=== PATIENT | male | born 1940 | race Caucasian/White ===

== ENCOUNTER → 2017-09-08 07:56 | Outpatient (CLI) | payer MEDICARE, OTHER, SELFPAY ==
[2017-09-08 09:57] LABS: Alanine Aminotransferase 27 IU/L (21-72); Albumin 3.9 g/dL (3.5-5.0); Albumin Globulin Ratio 1.6 (1.0-2.8); Alkaline Phosphatase 104 U/L (38-126); Aspartate Aminotransferase 16 IU/L (17-59); Bilirubin Total 0.8 mg/dL (0.2-1.3); Blood Urea Nitrogen 24 mg/dL (9-20); Calcium 9.9 mg/dL (8.4-10.2); Carbon Dioxide 27 mmol/L (22-32); Chloride 100 mmol/L (98-107); Estimated Glomerular Filt Rate 58.9 mL/min (>60); Globulin 2.5 g/dL (1.7-4.1); Glucose 150 mg/dL (80-110); HEMOLYSIS < 15 (0-50); Potassium 4.2 mmol/L (3.4-5.1); Sodium 140 mmol/L (137-145); Total Protein 6.4 g/dL (6.3-8.2)
== END ==
PROVIDERS: PCP Family Medicine; Referring Provider Nurse Practitioner; Visit Provider Internal Medicine
DX: E11.22 Type 2 diabetes mellitus with diabetic chronic kidney disease (principal); N18.3 Chronic kidney disease, stage 3 (moderate); Z79.4 Long term (current) use of insulin
CPT/HCPCS: 36415; 80053

== ENCOUNTER 2017-09-23 12:32 | Emergency (ER) | payer MEDICARE, OTHER, SELFPAY ==
--- NOTE | 2017-09-23 12:39 | ED.SOB ---
HPI - SOB/Dyspnea General Chief Complaint: Shortness of Breath/Dyspnea Stated Complaint: HAVING TROUBLE GETTING AIR IN Time Seen by Provider: 09/23/17 12:39 Source: patient Mode of arrival: ambulatory Limitations: no limitations History of Present Illness Patient is a 77-year-old male here for evaluation approximately 1 month of worsening shortness of breath. He states that the shortness of breath is occasional. He states that he can climb the stairs in his house without having to stop. He states that he can walk out to his mailbox without stopping. He states that he occasionally has wheezing associated with it denies any chest pain although he does have a significant cardiac history. Also states he has paroxysmal atrial fibrillation. He states that last night he had to sleep sitting in chair because it was ?more comfortable ?no lower extremity swelling Related Data Home Medications Medication Instructions Recorded Confirmed aspirin 81 mg PO QDAY #0 09/23/11 09/23/17 glipizide 4 mg PO DAILY #0 09/23/11 09/23/17 metoprolol tartrate 50 mg PO BID #0 09/23/11 09/23/17 atorvastatin [Lipitor] 80 mg PO QDAY #0 09/24/11 09/23/17 amlodipine 10 mg PO DAILY 09/23/17 09/23/17 chlorthalidone 25 mg PO DAILY 09/23/17 09/23/17 insulin glargine [Lantus Solostar 35 units SUB-Q DAILY 09/23/17 09/23/17 U-100 Insulin] irbesartan 300 mg PO DAILY 09/23/17 09/23/17 liraglutide [Victoza 2-Eddy] 1.8 mg SUB-Q BEDTIME 09/23/17 09/23/17 metformin 1,000 mg PO BID 09/23/17 09/23/17 Previous Rx's Medication Instructions Recorded albuterol sulfate 1 puff INHALATION Q4-6H PRN #1 each 09/23/17 furosemide 20 mg PO DAILY #30 tab 09/23/17 Allergies Allergy/AdvReac Type Severity Reaction Status Date / Time lisinopril AdvReac Mild COUGH Verified 09/23/17 12:49 Review of Systems Constitutional Denies fever(s) Cardiovascular Denies chest pain, Denies irregular heart rhythm, Denies leg ulcers, Denies leg edema, Denies palpitations, Reports dyspnea and Denies slow heart rate Respiratory Denies cough, Reports dyspnea and Reports wheezing Gastrointestinal Gastrointestinal: Denies abdominal pain, Denies diarrhea, Denies nausea and Denies vomiting Genitourinary Denies dysuria Musculoskeletal Denies myalgias and Denies arthralgias Integumentary/Breasts Denies rash Comments: Dry skin Neurologic Denies behavioral changes Psychiatric Denies behavioral changes Endocrine Denies palpitations Hematologic/Lymphatic Denies easy bleeding and Denies easy bruising Allergic/Immunologic Reports wheezing [facility] Medical History Atrial fibrillation (Acute) Diabetes (Acute) Myocardial infarct (Acute) Social History Smoking Status: Former smoker Comment: Reviewed patient's past medical surgical family and social history Exam Initial Vital Signs Initial Vital Signs: Vital Signs Temperature 97.6 F 09/23/17 12:43 Pulse Rate 80 09/23/17 12:43 Respiratory Rate 14 09/23/17 12:43 Blood Pressure 138/74 H 09/23/17 12:43 Pulse Oximetry 95 09/23/17 12:43 Const General: cooperative, healthy appearing, comfortable, well developed, well groomed and No acute distress Orientation: alert, awake and oriented x3 HENMT Head: normal to inspection, normocephalic and atraumatic Chest Chest: normal inspection of the chest Resp Effort & Inspection: normal respiratory effort Auscultation: clear to auscultation bilaterally Cardio Rate: regular rate Rhythm: abnormal rhythm irregularly irregular Pulses: radial pulses present GI Inspection: non-distended Palpation: soft, No firm and No tender Other: Umbilical hernia Diastasis recti Skin Other: No lesions, dry skin, Neuro General: alert, awake and oriented x3 Cognition: normal cognition Speech: speech normal Gait: normal gait Extrem General: normal to inspection and capillary refill normal Psych Appearance: grossly normal and well kempt Course Orders Ordered: ED Orders 09/23/17 12:42 EKG-12 Lead Routine 09/23/17 13:01 XR chest 1V Stat 09/23/17 13:09 B Type Natriuretic Peptide Stat Basic Metabolic Panel Stat Complete Blood Count AUTO DIFF Stat Troponin I Stat Vital Signs - 8 hr 09/23/17 12:43 09/23/17 13:00 09/23/17 13:39 Temperature 97.6 F Pulse Rate 80 66 83 Respiratory Rate 14 14 22 Blood Pressure 138/74 H Blood Pressure [Right Arm] 120/62 128/68 H Pulse Oximetry 95 93 95 MDM - SOB/Dyspnea Lab Data Attestation: I reviewed the patient's lab results. Result diagrams: 09/23/17 13:09 09/23/17 13:09 Lab Results 09/23/17 09/23/17 Range/Units 13:09 13:09 WBC 8.4 (4.5-11.0) X10^3/uL RBC 3.52 L (4.5-5.9) X10^6/uL Hgb 10.9 L (13.5-17.5) g/dL Hct 32.4 L (41-53) % MCV 92.0 (80-100) fL MCH 31.0 (26-34) PG MCHC 33.7 (30-36) % RDW 13.7 (11.6-14.8) % Plt Count 265 (150-400) X10^3/uL Neut % (Auto) 72.8 (50-75) % Lymph % (Auto) 16.1 L (25-40) % [place] % (Auto) 9.0 (3-14) % Eos % (Auto) 1.2 L (2-4) % Baso % (Auto) 0.9 (0-2) % Neut # (Auto) 6100 H (5597-7645) /uL Sodium 137 (137-145) mmol/L Potassium 4.7 (3.4-5.1) mmol/L Chloride 99 (98-107) mmol/L Carbon Dioxide 28 (22-32) mmol/L BUN 20 (9-20) mg/dL Creatinine 1.20 (0.66-1.25) mg/dL Estimated GFR 58.9 L (>60) mL/min BUN/Creatinine Ratio 16.7 (6-22) Glucose 277 H (80-110) mg/dL Calcium 9.4 (8.4-10.2) mg/dL Troponin I < 0.012 (0.01-0.034) ng/mL B-Natriuretic Peptide 363.0 H (<100) Imaging Data Chest x-ray: Radiologist's impression: PROCEDURE: XR CHEST 1V INDICATIONS: SOB TECHNIQUE: One view of the chest was acquired. COMPARISON: [facility], CR, CHEST 1 VIEW, 09/23/2011, 22:45. [facility], CR, CHEST 1 VIEW, 06/14/2010, 16:13. [facility], RG, XR CXR 1 VIEW, 04/24/2002, 15:26. FINDINGS: Surgical changes and devices: Status post CABG procedure. Lungs and pleura: No pneumothorax. Trace bilateral pleural effusions. Cephalization of pulmonary vasculature and interstitial prominence concerning for pulmonary edema related to CHF. Mediastinum: Mediastinal contours appear normal. Heart size is normal. Bones and chest wall: No suspicious bony lesions. Overlying soft tissues appear unremarkable. IMPRESSION: Findings concerning for CHF. Dictated by: Jayashree Alcala MD, PhD on 09/23/2017 at 13:33 Approved by: Jayashree Alcala MD, PhD on 09/23/2017 at 13:34 ECG Data Attestation: I personally reviewed and interpreted this ECG as follows: Prior ECG tracings: available for review Interpretation: Comparison EKG dated 08/2011 Sinus rhythm with occasional PVCs left axis deviation nonspecific ST T wave changes EKG dated today Atrial fibrillation Ventricular rate is 75 Left axis deviation Normal QRS Nonspecific ST T wave changes MDM Narrative Medical decision making narrative: Patient not in respiratory distress. Has clear lung exam today. Is in atrial fibrillation on his EKG. Patient states that he has a diagnosis of paroxysmal atrial fibrillation. He states that his recovery room rn took him off all of his anticoagulation except for an aspirin. Patient does not feel the fibrillation. Patient is clinically not in heart failure however does have a slightly elevated BNP, his chest x-ray is concerning for this diagnosis and his worsening respiratory issues over the past month and especially his respiratory issues he had last evening supports this diagnosis will start the patient on a low dose of Lasix. Also give him an albuterol inhaler since he states that he has had bronchitis in the past and has a symptom of wheezing. He was instructed that he needed to contact his recovery room rn tomorrow to discuss the indications to get an echocardiogram and to also discuss the indications for anticoagulation. He was given a copy of his EKG and his lab reports here in the emergency department. He was given return precautions. His is at bedside for these discussions. They both expressed understanding and agreement Discharge Plan Departure Patient Disposition: Home, Self-Care Clinical Impression: Atrial fibrillation, CHF (congestive heart failure) Instructions: DI for Heart Failure, DI for Atrial Fibrillation Activity Restrictions/Additional Instructions: Recommend that you continue all of your medications as directed. Start the new medications that you were given today as directed. Call your recovery room rn tomorrow for a follow-up to discuss the indications for an echocardiogram and also to discuss the indications for anticoagulation. Return to the emergency department for any new symptoms, worsening shortness of breath, chest pain, fevers or any other new or concerning symptoms. Prescriptions: New furosemide 20 mg tablet 20 mg PO DAILY Qty: 30 RF: 0 albuterol sulfate 90 mcg/actuation aerosol powdr breath activated 1 puff INHALATION Q4-6H PRN (Reason: shortness of breath or wheezing) Qty: 1 RF: 0 No Action aspirin 81 MG tablet,delayed release (DR/EC) 81 mg PO QDAY Qty: 0 RF: 0 glipizide 10 MG tablet extended release 24hr 4 mg PO DAILY Qty: 0 RF: 0 metoprolol tartrate 50 MG tablet 50 mg PO BID Qty: 0 RF: 0 atorvastatin [Lipitor] 40 MG tablet 80 mg PO QDAY Qty: 0 RF: 0 chlorthalidone 25 mg tablet 25 mg PO DAILY RF: 0 amlodipine 10 mg tablet 10 mg PO DAILY RF: 0 metformin 1,000 mg Tablet 1,000 mg PO BID RF: 0 irbesartan 300 mg tablet 300 mg PO DAILY RF: 0 insulin glargine [Lantus Solostar U-100 Insulin] 100 unit/mL (3 mL) insulin pen 35 units Sub-Q DAILY RF: 0 liraglutide [Victoza 2-Eddy] 0.6 mg/0.1 mL (18 mg/3 mL) pen injector 1.8 mg Sub-Q BEDTIME RF: 0
[2017-09-23 12:43] VITALS: BP 138/74; PULSE 80; RESP 14; TEMP 36.4; O2SAT 95; BMI 31.4
[2017-09-23 13:00] VITALS: BP 120/62; PULSE 66; RESP 14; O2SAT 93
--- NOTE | 2017-09-23 13:01 | DI.RAD.S_ITS ---
PROCEDURE: XR CHEST 1V INDICATIONS: SOB TECHNIQUE: One view of the chest was acquired. COMPARISON: [facility], , CHEST 1 VIEW, 09/23/2011, 22:45. [facility], CR, CHEST 1 VIEW, 06/14/2010, 16:13. [facility], RG, XR CXR 1 VIEW, 04/24/2002, 15:26. FINDINGS: Surgical changes and devices: Status post CABG procedure. Lungs and pleura: No pneumothorax. Trace bilateral pleural effusions. Cephalization of pulmonary vasculature and interstitial prominence concerning for pulmonary edema related to CHF. Mediastinum: Mediastinal contours appear normal. Heart size is normal. Bones and chest wall: No suspicious bony lesions. Overlying soft tissues appear unremarkable. IMPRESSION: Findings concerning for CHF. Dictated by: Jayashree Alcala MD, PhD on 09/23/2017 at 13:33 Approved by: Jayashree Alcala MD, PhD on 09/23/2017 at 13:34
[2017-09-23 13:17] LABS: Add Manual Diff / Slide Review NO; Basophils Percent Auto 0.9 % (0-2); Eosinophils Percent Auto 1.2 % (2-4); Hematocrit 32.4 % (41-53); Hemoglobin 10.9 g/dL (13.5-17.5); Lymphocytes Percent Auto 16.1 % (25-40); Mean Corpuscular HGB Conc 33.7 % (30-36); Neutrophils Absolute Auto 6100 /uL (3000-5900); Neutrophils Percent Auto 72.8 % (50-75); Platelet Count 265 X10^3/uL (150-400); Red Blood Cell Count 3.52 X10^6/uL (4.5-5.9); Red Cell Distribution Width 13.7 % (11.6-14.8); White Blood Cell Count 8.4 X10^3/uL (4.5-11.0)
[2017-09-23 13:27] LABS: BUN Creatinine Ratio 16.7 (6-22); Blood Urea Nitrogen 20 mg/dL (9-20); Calcium 9.4 mg/dL (8.4-10.2); Carbon Dioxide 28 mmol/L (22-32); Chloride 99 mmol/L (98-107); Estimated Glomerular Filt Rate 58.9 mL/min (>60); Glucose 277 mg/dL (80-110); HEMOLYSIS < 15 (0-50); Potassium 4.7 mmol/L (3.4-5.1); Sodium 137 mmol/L (137-145)
[2017-09-23 13:39] VITALS: BP 128/68; PULSE 83; RESP 22; O2SAT 95
[2017-09-23 13:41] LABS: Troponin I < 0.012 ng/mL (0.01-0.034)
[2017-09-23 14:14] VITALS: BP 130/73; PULSE 71; RESP 17; O2SAT 94
== END 2017-09-23 14:14 | disposition home or self-care (01) ==
PROVIDERS: Emergency Provider Emergency Medicine; Family Provider Internal Medicine; PCP Family Medicine; Referring Provider Internal Medicine Endocrinology, Diabetes & Metabolism
DX: I50.9 Heart failure, unspecified (principal); I48.91 Unspecified atrial fibrillation
CPT/HCPCS: 36591; 71045; 80048; 83880; 84484; 85025; 93005; 99282; 99285

== ENCOUNTER → 2017-10-03 07:27 | Outpatient (CLI) | payer MEDICARE, OTHER, SELFPAY ==
[2017-10-03 10:09] LABS: Cholesterol 96 mg/dL (140-199); HDL Cholesterol 33 mg/dL (40-60); LDL Cholesterol Calculated 49 mg/dL (<100); Magnesium 1.8 mg/dL (1.6-2.3); Triglycerides 71 mg/dL (35-150)
== END ==
PROVIDERS: PCP Family Medicine; Referring Provider Internal Medicine Endocrinology, Diabetes & Metabolism; Visit Provider Internal Medicine
DX: I48.0 Paroxysmal atrial fibrillation (principal); E78.00 Pure hypercholesterolemia, unspecified
CPT/HCPCS: 36415; 80061; 83735

== ENCOUNTER → 2017-11-02 10:49 | Outpatient (CLI) | payer MEDICARE, OTHER, SELFPAY ==
[2017-11-02 12:31] LABS: BUN Creatinine Ratio 21.3 (6-22); Blood Urea Nitrogen 34 mg/dL (9-20); Calcium 9.9 mg/dL (8.4-10.2); Carbon Dioxide 30 mmol/L (22-32); Chloride 102 mmol/L (98-107); Estimated Glomerular Filt Rate 42.2 mL/min (>60); Glucose 83 mg/dL (80-110); HEMOLYSIS < 15 (0-50); Magnesium 1.8 mg/dL (1.6-2.3); Sodium 143 mmol/L (137-145)
== END ==
PROVIDERS: PCP Family Medicine; Visit Provider Internal Medicine
DX: I48.0 Paroxysmal atrial fibrillation (principal)
CPT/HCPCS: 36415; 80048; 83735

== ENCOUNTER → 2017-11-27 10:57 | Outpatient (CLI) | payer MEDICARE, OTHER, SELFPAY ==
[2017-11-27 12:21] LABS: BUN Creatinine Ratio 26.7 (6-22); Blood Urea Nitrogen 40 mg/dL (9-20); Calcium 9.9 mg/dL (8.4-10.2); Carbon Dioxide 28 mmol/L (22-32); Chloride 100 mmol/L (98-107); Estimated Glomerular Filt Rate 45.5 mL/min (>60); Glucose 179 mg/dL (80-110); HEMOLYSIS < 15 (0-50); Magnesium 1.9 mg/dL (1.6-2.3); Potassium 5.3 mmol/L (3.4-5.1); Sodium 141 mmol/L (137-145)
== END ==
PROVIDERS: Family Provider Internal Medicine; PCP Family Medicine; Visit Provider Internal Medicine
DX: E83.42 Hypomagnesemia (principal); I48.91 Unspecified atrial fibrillation
CPT/HCPCS: 36415; 80048; 83735

== ENCOUNTER → 2017-12-10 13:51 | Outpatient (CLI) | payer MEDICARE, OTHER, SELFPAY ==
[2017-12-10 15:24] LABS: Add Manual Diff / Slide Review NO; Basophils Percent Auto 0.7 % (0-2); Eosinophils Percent Auto 1.2 % (2-4); Hemoglobin 11.8 g/dL (13.5-17.5); Lymphocytes Percent Auto 11.6 % (25-40); Mean Corpuscular HGB Conc 33.6 % (30-36); Mean Corpuscular Hemoglobin 30.1 PG (26-34); Mean Corpuscular Volume 89.4 fL (80-100); Monocytes Percent Auto 11.2 % (3-14); Neutrophils Absolute Auto 6000 /uL (3000-5900); Neutrophils Percent Auto 75.3 % (50-75); Platelet Count 259 X10^3/uL (150-400); Red Blood Cell Count 3.91 X10^6/uL (4.5-5.9); Red Cell Distribution Width 15.3 % (11.6-14.8)
[2017-12-10 15:25] LABS: Alanine Aminotransferase 47 IU/L (21-72); Albumin 4.2 g/dL (3.5-5.0); Albumin Globulin Ratio 1.5 (1.0-2.8); Alkaline Phosphatase 173 U/L (38-126); Aspartate Aminotransferase 36 IU/L (17-59); BUN Creatinine Ratio 21.3 (6-22); Bilirubin Total 0.7 mg/dL (0.2-1.3); Blood Urea Nitrogen 34 mg/dL (9-20); Calcium 9.6 mg/dL (8.4-10.2); Carbon Dioxide 28 mmol/L (22-32); Chloride 97 mmol/L (98-107); Estimated Glomerular Filt Rate 42.2 mL/min (>60); Globulin 2.8 g/dL (1.7-4.1); Glucose 321 mg/dL (80-110); HEMOLYSIS < 15 (0-50); Potassium 4.6 mmol/L (3.4-5.1); Sodium 137 mmol/L (137-145)
[2017-12-10 15:47] LABS: Free T4, Direct Thyroxine 1.25 ng/dL (0.78-2.19)
[2017-12-10 15:49] LABS: Troponin I < 0.012 ng/mL (0.01-0.034)
[2017-12-10 16:38] LABS: Thyroid Stimulating Hormone 2.16 uIU/mL (0.47-4.68)
== END ==
PROVIDERS: Family Provider Internal Medicine; PCP Family Medicine; Visit Provider Internal Medicine
DX: I48.0 Paroxysmal atrial fibrillation (principal)
CPT/HCPCS: 36415; 80053; 84439; 84443; 84484; 85025

== ENCOUNTER → 2017-12-21 10:51 | Outpatient (CLI) | payer MEDICARE, OTHER, SELFPAY ==
[2017-12-21 12:36] LABS: Alanine Aminotransferase 31 IU/L (21-72); Albumin Globulin Ratio 1.7 (1.0-2.8); Alkaline Phosphatase 112 U/L (38-126); Aspartate Aminotransferase 20 IU/L (17-59); BUN Creatinine Ratio 21.9 (6-22); Bilirubin Total 0.6 mg/dL (0.2-1.3); Blood Urea Nitrogen 35 mg/dL (9-20); Calcium 10.1 mg/dL (8.4-10.2); Carbon Dioxide 26 mmol/L (22-32); Chloride 97 mmol/L (98-107); Estimated Glomerular Filt Rate 42.2 mL/min (>60); Globulin 2.4 g/dL (1.7-4.1); Glucose 246 mg/dL (80-110); HEMOLYSIS < 15 (0-50); Sodium 136 mmol/L (137-145); Total Protein 6.4 g/dL (6.3-8.2)
[2017-12-21 12:47] LABS: Potassium 5.8 mmol/L (3.4-5.1)
== END ==
PROVIDERS: Family Provider Internal Medicine; PCP Family Medicine; Visit Provider Nurse Practitioner
DX: E11.22 Type 2 diabetes mellitus with diabetic chronic kidney disease (principal); E78.00 Pure hypercholesterolemia, unspecified; N18.3 Chronic kidney disease, stage 3 (moderate); Z79.4 Long term (current) use of insulin
CPT/HCPCS: 36415; 80053

== ENCOUNTER → 2017-12-28 11:36 | Outpatient (CLI) | payer MEDICARE, OTHER, SELFPAY ==
[2017-12-28 12:31] LABS: Blood Urea Nitrogen 40 mg/dL (9-20); Calcium 9.4 mg/dL (8.4-10.2); Carbon Dioxide 27 mmol/L (22-32); Chloride 99 mmol/L (98-107); Estimated Glomerular Filt Rate 42.2 mL/min (>60); Glucose 133 mg/dL (80-110); Sodium 142 mmol/L (137-145)
[2017-12-28 12:35] LABS: HEMOLYSIS 96 (0-50); Potassium 5.2 mmol/L (3.4-5.1)
== END ==
PROVIDERS: Family Provider Internal Medicine; PCP Family Medicine; Visit Provider Internal Medicine
DX: I48.2 Chronic atrial fibrillation (principal)
CPT/HCPCS: 36415; 80048

== ENCOUNTER → 2018-01-22 10:29 | Outpatient (CLI) | payer MEDICARE, OTHER, SELFPAY ==
[2018-01-22 11:01] LABS: Bacteria Urine None Seen
[2018-01-22 12:21] LABS: Appearance Urine UA CLEAR; Bilirubin Urine UA NEGATIVE (NEGATIVE); Color Urine UA YELLOW; Glucose Urine UA NEGATIVE (Normal); Ketones Urine UA NEGATIVE (NEGATIVE); Leukocyte Esterase Urine UA NEGATIVE (NEGATIVE); Nitrite Urine UA NEGATIVE (Negative); Occult Blood Urine UA NEGATIVE (Negative); Protein Urine UA NEGATIVE (Negative); Urobilinogen Urine UA 0.2 E.U./dL (0.2)
[2018-01-22 12:44] LABS: Albumin 3.8 g/dL (3.5-5.0); BUN Creatinine Ratio 16.4 (6-22); Blood Urea Nitrogen 23 mg/dL (9-20); Calcium 9.1 mg/dL (8.4-10.2); Carbon Dioxide 26 mmol/L (22-32); Chloride 101 mmol/L (98-107); Estimated Glomerular Filt Rate 49.3 mL/min (>60); Glucose 165 mg/dL (80-110); HEMOLYSIS < 15 (0-50); Phosphorous 4.9 mg/dL (2.3-3.7); Potassium 4.4 mmol/L (3.4-5.1); Sodium 140 mmol/L (137-145)
[2018-01-22 13:09] LABS: Culture Indicated Urine Cult Not Indicated; Hyaline Casts Urine 1-5/LPF; RBC Urine 0-1/HPF (0-5/HPF); Squamous Epithelial Cell Urine 0-1 /HPF; Urine Comments Microscopic Normal; WBC Urine 0-1/HPF (0-5/HPF)
[2018-01-22 14:05] LABS: Creatinine Urine Random 76.4 mg/dL
[2018-01-22 14:10] LABS: Microalbumi Creatinin Ratio Ur 200.2 ug/mg CR (<30); Microalbumin Urine Random 15.3 mg/dL (0-1.6)
== END ==
PROVIDERS: Family Provider Internal Medicine; PCP Family Medicine; Referring Provider Nurse Practitioner; Visit Provider Internal Medicine Nephrology
DX: N18.3 Chronic kidney disease, stage 3 (moderate) (principal)
CPT/HCPCS: 36415; 80069; 81001; 82043; 82570

== ENCOUNTER → 2018-08-09 07:48 | Outpatient (CLI) | payer MEDICARE, OTHER, SELFPAY ==
[2018-08-09 08:37] LABS: Add Manual Diff / Slide Review NO; Basophils Absolute Auto 100 /uL (0-100); Basophils Percent Auto 1.4 % (0-2); Eosinophils Absolute Auto 700 /uL (0-450); Eosinophils Percent Auto 10.3 % (2-4); Hematocrit 36.1 % (41-53); Hemoglobin 12.2 g/dL (13.5-17.5); Lymphocytes Absolute Auto 600 /uL (1100-4500); Lymphocytes Percent Auto 8.8 % (25-40); Mean Corpuscular HGB Conc 33.9 % (30-36); Mean Corpuscular Hemoglobin 30.6 PG (26-34); Mean Corpuscular Volume 90.4 fL (80-100); Monocytes Absolute Auto 1100 /uL (0-900); Monocytes Percent Auto 14.6 % (3-14); Neutrophils Absolute Auto 4700 /uL (1500-7000); Neutrophils Percent Auto 64.9 % (50-75); Platelet Count 246 X10^3/uL (150-400); Red Blood Cell Count 3.99 X10^6/uL (4.5-5.9); Red Cell Distribution Width 16.2 % (11.6-14.8); White Blood Cell Count 7.2 X10^3/uL (4.5-11.0)
[2018-08-09 08:51] LABS: BUN Creatinine Ratio 18.8 (6-22); Blood Urea Nitrogen 30 mg/dL (9-20); Calcium 9.7 mg/dL (8.4-10.2); Carbon Dioxide 27 mmol/L (22-32); Chloride 102 mmol/L (98-107); Estimated Glomerular Filt Rate 42.1 mL/min (>60); Glucose 73 mg/dL (80-110); HEMOLYSIS < 15 (0-50); Potassium 4.1 mmol/L (3.4-5.1); Sodium 137 mmol/L (137-145)
[2018-08-09 09:57] LABS: Thyroid Stimulating Hormone 7.75 uIU/mL (0.47-4.68)
== END ==
PROVIDERS: PCP Family Medicine; Visit Provider Internal Medicine
DX: I48.91 Unspecified atrial fibrillation (principal)
CPT/HCPCS: 36415; 80048; 84439; 84443; 85025

== ENCOUNTER → 2018-09-17 17:17 | Outpatient (CLI) | payer MEDICARE, OTHER, SELFPAY ==
[2018-09-17 17:41] LABS: Add Manual Diff / Slide Review NO; Basophils Absolute Auto 100 /uL (0-100); Basophils Percent Auto 1.1 % (0-2); Eosinophils Absolute Auto 200 /uL (0-450); Eosinophils Percent Auto 2.2 % (2-4); Hematocrit 40.4 % (41-53); Hemoglobin 13.3 g/dL (13.5-17.5); Lymphocytes Absolute Auto 1100 /uL (1100-4500); Lymphocytes Percent Auto 15.1 % (25-40); Mean Corpuscular Hemoglobin 30.3 PG (26-34); Mean Corpuscular Volume 91.9 fL (80-100); Monocytes Absolute Auto 900 /uL (0-900); Monocytes Percent Auto 13.4 % (3-14); Neutrophils Absolute Auto 4800 /uL (1500-7000); Neutrophils Percent Auto 68.2 % (50-75); Platelet Count 228 X10^3/uL (150-400); Red Cell Distribution Width 17.3 % (11.6-14.8)
[2018-09-17 18:16] LABS: Albumin 4.2 g/dL (3.5-5.0); BUN Creatinine Ratio 23.2 (6-22); Blood Urea Nitrogen 44 mg/dL (9-20); Calcium 9.7 mg/dL (8.4-10.2); Carbon Dioxide 26 mmol/L (22-32); Chloride 98 mmol/L (98-107); Estimated Glomerular Filt Rate 34.5 mL/min (>60); Glucose 296 mg/dL (80-110); HEMOLYSIS 19 (0-50); Phosphorous 4.7 mg/dL (2.3-3.7); Potassium 5.2 mmol/L (3.4-5.1); Sodium 136 mmol/L (137-145)
[2018-09-19 13:43] LABS: Parathyroid Hormone Int 81 pg/mL (14-64)
== END ==
PROVIDERS: PCP Family Medicine; Visit Provider Internal Medicine Nephrology
DX: N18.3 Chronic kidney disease, stage 3 (moderate) (principal)
CPT/HCPCS: 36415; 80069; 83970; 85025

== ENCOUNTER → 2018-10-18 10:56 | Outpatient (CLI) | payer MEDICARE, OTHER, SELFPAY ==
[2018-10-18 12:50] LABS: BUN Creatinine Ratio 23.8 (6-22); Blood Urea Nitrogen 38 mg/dL (9-20); Calcium 9.5 mg/dL (8.4-10.2); Carbon Dioxide 24 mmol/L (22-32); Chloride 101 mmol/L (98-107); Estimated Glomerular Filt Rate 42.1 mL/min (>60); Glucose 222 mg/dL (80-110); HEMOLYSIS < 15 (0-50); Sodium 135 mmol/L (137-145)
[2018-10-18 12:53] LABS: Potassium 5.4 mmol/L (3.4-5.1)
== END ==
PROVIDERS: PCP Family Medicine; Visit Provider Internal Medicine Nephrology
DX: N18.3 Chronic kidney disease, stage 3 (moderate) (principal)
CPT/HCPCS: 36415; 80048

== ENCOUNTER → 2018-12-31 11:08 | Outpatient (CLI) | payer MEDICARE, OTHER, SELFPAY ==
--- NOTE | 2018-12-31 | DI.RAD.S_ITS ---
PROCEDURE: XR CHEST 2V INDICATIONS: Chronic Kidney Disease Stage III TECHNIQUE: 2 views of the chest were acquired. COMPARISON: [facility], CR, XR CHEST 1V, 09/23/2017, 13:08. FINDINGS: Surgical changes and devices: Post median sternotomy and CABG. Lungs and pleura: Lungs are clear. No pleural effusions or pneumothorax. Mediastinum: Mediastinal contours are unchanged. Small hiatal hernia. Calcified aortic arch. Heart size is normal. Bones and chest wall: No suspicious bony abnormalities. Soft tissues appear unremarkable. IMPRESSION: No acute cardiopulmonary abnormality. Dictated by: [place] M.D. on 12/31/2018 at 12:49 Approved by: [place] M.D. on 12/31/2018 at 13:01
[2018-12-31 12:10] LABS: Add Manual Diff / Slide Review NO; Basophils Absolute Auto 100 /uL (0-100); Basophils Percent Auto 1.1 % (0-2); Eosinophils Absolute Auto 200 /uL (0-450); Eosinophils Percent Auto 2.9 % (2-4); Hematocrit 41.1 % (41-53); Hemoglobin 13.8 g/dL (13.5-17.5); Lymphocytes Absolute Auto 900 /uL (1100-4500); Lymphocytes Percent Auto 12.9 % (25-40); Mean Corpuscular HGB Conc 33.6 % (30-36); Mean Corpuscular Volume 98.1 fL (80-100); Monocytes Absolute Auto 900 /uL (0-900); Monocytes Percent Auto 12.9 % (3-14); Neutrophils Absolute Auto 4800 /uL (1500-7000); Neutrophils Percent Auto 70.2 % (50-75); Platelet Count 189 X10^3/uL (150-400); Red Cell Distribution Width 14.2 % (11.6-14.8); White Blood Cell Count 6.9 X10^3/uL (4.5-11.0)
[2018-12-31 12:43] LABS: Albumin 3.7 g/dL (3.5-5.0); BUN Creatinine Ratio 21.1 (6-22); Blood Urea Nitrogen 38 mg/dL (9-20); Calcium 9.5 mg/dL (8.4-10.2); Carbon Dioxide 27 mmol/L (22-32); Chloride 100 mmol/L (98-107); Estimated Glomerular Filt Rate 36.8 mL/min (>60); Glucose 151 mg/dL (80-110); HEMOLYSIS < 15 (0-50); Phosphorous 4.7 mg/dL (2.3-3.7); Potassium 5.3 mmol/L (3.4-5.1); Sodium 136 mmol/L (137-145)
[2019-01-02 15:13] LABS: Parathyroid Hormone Int 37 pg/mL (14-64)
== END ==
PROVIDERS: PCP Family Medicine; Visit Provider Internal Medicine Nephrology
DX: N18.3 Chronic kidney disease, stage 3 (moderate) (principal); K44.9 Diaphragmatic hernia without obstruction or gangrene; Z95.1 Presence of aortocoronary bypass graft
CPT/HCPCS: 36415; 71046; 80069; 83970; 85025

== ENCOUNTER → 2019-01-21 10:49 | Outpatient (CLI) | payer MEDICARE, OTHER, SELFPAY ==
[2019-01-21 12:36] LABS: BUN Creatinine Ratio 22.1 (6-22); Blood Urea Nitrogen 42 mg/dL (9-20); Calcium 9.3 mg/dL (8.4-10.2); Carbon Dioxide 28 mmol/L (22-32); Chloride 101 mmol/L (98-107); Estimated Glomerular Filt Rate 34.5 mL/min (>60); Glucose 265 mg/dL (80-110); HEMOLYSIS < 15 (0-50); Potassium 4.9 mmol/L (3.4-5.1); Sodium 137 mmol/L (137-145)
== END ==
PROVIDERS: PCP Family Medicine; Visit Provider Internal Medicine
DX: N18.3 Chronic kidney disease, stage 3 (moderate) (principal)
CPT/HCPCS: 36415; 80048

== ENCOUNTER → 2019-02-04 11:12 | Outpatient (CLI) | payer MEDICARE, OTHER, SELFPAY ==
[2019-02-04 12:32] LABS: BUN Creatinine Ratio 20.5 (6-22); Blood Urea Nitrogen 39 mg/dL (9-20); Calcium 9.5 mg/dL (8.4-10.2); Carbon Dioxide 29 mmol/L (22-32); Chloride 101 mmol/L (98-107); Estimated Glomerular Filt Rate 34.5 mL/min (>60); Glucose 149 mg/dL (80-110); HEMOLYSIS < 15 (0-50); Potassium 5.2 mmol/L (3.4-5.1); Sodium 138 mmol/L (137-145)
== END ==
PROVIDERS: Family Provider Family Medicine; PCP Family Medicine; Referring Provider Internal Medicine Endocrinology, Diabetes & Metabolism; Visit Provider Internal Medicine
DX: I13.10 Hypertensive heart and chronic kidney disease without heart failure, with stage 1 through stage 4 chronic kidney disease, or unspecified chronic kidney disease (principal)
CPT/HCPCS: 36415; 80048

== ENCOUNTER → 2019-03-21 11:22 | Outpatient (CLI) | payer MEDICARE, OTHER, SELFPAY ==
[2019-03-21 11:49] LABS: Add Manual Diff / Slide Review NO; Basophils Absolute Auto 100 /uL (0-100); Basophils Percent Auto 0.8 % (0-2); Eosinophils Absolute Auto 200 /uL (0-450); Eosinophils Percent Auto 2.8 % (2-4); Hematocrit 45.2 % (41-53); Hemoglobin 15.5 g/dL (13.5-17.5); Lymphocytes Absolute Auto 1000 /uL (1100-4500); Lymphocytes Percent Auto 12.4 % (25-40); Mean Corpuscular HGB Conc 34.2 % (30-36); Mean Corpuscular Volume 96.5 fL (80-100); Monocytes Absolute Auto 1100 /uL (0-900); Monocytes Percent Auto 13.7 % (3-14); Neutrophils Absolute Auto 5600 /uL (1500-7000); Neutrophils Percent Auto 70.3 % (50-75); Platelet Count 202 X10^3/uL (150-400); Red Blood Cell Count 4.68 X10^6/uL (4.5-5.9); White Blood Cell Count 7.9 X10^3/uL (4.5-11.0)
[2019-03-21 11:59] LABS: Albumin 4.2 g/dL (3.5-5.0); BUN Creatinine Ratio 18.9 (6-22); Blood Urea Nitrogen 34 mg/dL (9-20); Calcium 9.9 mg/dL (8.4-10.2); Carbon Dioxide 27 mmol/L (22-32); Chloride 100 mmol/L (98-107); Estimated Glomerular Filt Rate 36.8 mL/min (>60); Glucose 108 mg/dL (80-110); HEMOLYSIS 15 (0-50); Potassium 5.2 mmol/L (3.4-5.1); Sodium 137 mmol/L (137-145)
== END ==
PROVIDERS: PCP Family Medicine; Visit Provider Internal Medicine Nephrology
DX: N18.3 Chronic kidney disease, stage 3 (moderate) (principal)
CPT/HCPCS: 36415; 80069; 85025

== ENCOUNTER → 2019-03-25 10:50 | Outpatient (CLI) | payer MEDICARE, OTHER, SELFPAY ==
[2019-03-25 15:09] LABS: Creatinine Urine Random 95.5 mg/dL
[2019-03-25 15:16] LABS: Microalbumi Creatinin Ratio Ur 196.8 ug/mg CR (<30); Microalbumin Urine Random 18.8 mg/dL (0-1.6)
== END ==
PROVIDERS: Family Provider Family Medicine; PCP Family Medicine; Referring Provider Internal Medicine; Visit Provider Internal Medicine Nephrology
DX: N18.3 Chronic kidney disease, stage 3 (moderate) (principal)
CPT/HCPCS: 82043; 82570

== ENCOUNTER → 2019-05-16 13:16 | Outpatient (CLI) | payer MEDICARE, OTHER, SELFPAY ==
[2019-05-16 14:34] LABS: Alanine Aminotransferase 31 IU/L (<50); Albumin 4.2 g/dL (3.5-5.0); Albumin Globulin Ratio 1.4 (1.0-2.8); Alkaline Phosphatase 94 U/L (38-126); Aspartate Aminotransferase 34 IU/L (17-59); BUN Creatinine Ratio 20.4 (6-22); Bilirubin Total 0.6 mg/dL (0.2-1.3); Blood Urea Nitrogen 34 mg/dL (9-20); Calcium 9.6 mg/dL (8.4-10.2); Carbon Dioxide 27 mmol/L (22-32); Chloride 100 mmol/L (98-107); Estimated Glomerular Filt Rate 40.1 mL/min (>60); Globulin 3.1 g/dL (1.7-4.1); Glucose 339 mg/dL (80-110); HEMOLYSIS < 15 (0-50); Potassium 4.8 mmol/L (3.4-5.1); Sodium 135 mmol/L (137-145); Total Protein 7.3 g/dL (6.3-8.2)
[2019-05-16 15:05] LABS: Thyroid Stimulating Hormone 3.01 uIU/mL (0.47-4.68)
== END ==
PROVIDERS: Family Provider Family Medicine; PCP Family Medicine; Referring Provider Internal Medicine; Visit Provider Internal Medicine
DX: E03.8 Other specified hypothyroidism (principal); E78.5 Hyperlipidemia, unspecified; E03.9 Hypothyroidism, unspecified
CPT/HCPCS: 36415; 80053; 84439; 84443

== ENCOUNTER → 2019-08-06 09:10 | Outpatient (CLI) | payer MEDICARE, OTHER, SELFPAY ==
[2019-08-06 23:30] LABS: COVID19 Sendout Not Detected (Not Detect)
== END ==
PROVIDERS: Family Provider Family Medicine; PCP Family Medicine; Visit Provider Registered Nurse
DX: Z01.812 Encounter for preprocedural laboratory examination (principal)
CPT/HCPCS: 87635

== ENCOUNTER → 2019-09-09 08:01 | Outpatient (CLI) | payer MEDICARE, OTHER, SELFPAY ==
[2019-09-09 09:11] LABS: Albumin 3.8 g/dL (3.5-5.0); BUN Creatinine Ratio 18.8 (6-22); Blood Urea Nitrogen 35 mg/dL (9-20); Calcium 9.4 mg/dL (8.4-10.2); Carbon Dioxide 28 mmol/L (22-32); Chloride 105 mmol/L (98-107); Estimated Glomerular Filt Rate 35.3 mL/min (>60); Glucose 61 mg/dL (80-110); HEMOLYSIS < 15 (0-50); Phosphorous 4.3 mg/dL (2.3-3.7); Potassium 4.5 mmol/L (3.4-5.1); Sodium 139 mmol/L (137-145)
[2019-09-09 09:26] LABS: Vitamin D 25 Hydroxy (D3) 43.7 ng/mL (30.0-100.0)
[2019-09-10 06:40] LABS: Parathyroid Hormone Int 49 pg/mL (15-65)
== END ==
PROVIDERS: Family Provider Family Medicine; PCP Internal Medicine Nephrology; Referring Provider Internal Medicine Endocrinology, Diabetes & Metabolism; Visit Provider Internal Medicine Endocrinology, Diabetes & Metabolism
DX: N18.3 Chronic kidney disease, stage 3 (moderate) (principal)
CPT/HCPCS: 36415; 80069; 82306; 83970

== ENCOUNTER → 2019-10-29 08:32 | Outpatient (CLI) | payer MEDICARE, OTHER, SELFPAY ==
[2019-10-29 10:27] LABS: Albumin 3.7 g/dL (3.5-5.0); BUN Creatinine Ratio 21.1 (6-22); Blood Urea Nitrogen 39 mg/dL (9-20); Calcium 9.1 mg/dL (8.4-10.2); Carbon Dioxide 23 mmol/L (22-32); Chloride 104 mmol/L (98-107); Estimated Glomerular Filt Rate 35.5 mL/min (>60); Glucose 84 mg/dL (80-110); HEMOLYSIS < 15 (0-50); Potassium 4.6 mmol/L (3.4-5.1); Sodium 136 mmol/L (137-145)
[2019-10-30 07:18] LABS: Parathyroid Hormone Int 51 pg/mL (15-65)
[2019-10-30 11:58] LABS: Vitamin D 25 Hydroxy (D3) 34.9 ng/mL (30.0-100.0)
== END ==
PROVIDERS: Family Provider Family Medicine; Referring Provider Internal Medicine Nephrology; Visit Provider Internal Medicine Nephrology
DX: N18.3 Chronic kidney disease, stage 3 (moderate) (principal)
CPT/HCPCS: 36415; 80069; 82306; 83970

== ENCOUNTER → 2019-12-12 08:59 | Outpatient (CLI) | payer MEDICARE, OTHER, SELFPAY ==
[2019-12-12 09:15] LABS: Bacteria Urine None Seen; WBC Urine None Seen (0-5/HPF)
[2019-12-12 11:14] LABS: Appearance Urine UA CLEAR; Bilirubin Urine UA NEGATIVE (NEGATIVE); Color Urine UA YELLOW; Glucose Urine UA NEGATIVE (Negative); Ketones Urine UA NEGATIVE (NEGATIVE); Leukocyte Esterase Urine UA NEGATIVE (NEGATIVE); Nitrite Urine UA NEGATIVE (Negative); Occult Blood Urine UA TRACE-INTACT (Negative); Protein Urine UA 2+ (Negative); Specific Gravity Urine UA 1.025 (1.000-1.035); Urobilinogen Urine UA 0.2 E.U./dL (0.2)
[2019-12-12 11:37] LABS: Culture Indicated Urine Cult Not Indicated; RBC Urine 0-1/HPF (0-5/HPF)
== END ==
PROVIDERS: Family Provider Family Medicine; Referring Provider Internal Medicine Nephrology; Visit Provider Internal Medicine Nephrology
DX: N18.30 Chronic kidney disease, stage 3 unspecified (principal)
CPT/HCPCS: 81001

== ENCOUNTER → 2020-02-03 15:28 | Outpatient (CLI) | payer MEDICARE, OTHER, SELFPAY ==
[2020-02-03 18:40] LABS: Add Manual Diff / Slide Review NO; Basophils Absolute Auto 100 /uL (0-100); Eosinophils Absolute Auto 200 /uL (0-450); Eosinophils Percent Auto 2.5 % (2-4); Hematocrit 41.7 % (41-53); Lymphocytes Absolute Auto 800 /uL (1100-4500); Lymphocytes Percent Auto 11.3 % (25-40); Mean Corpuscular HGB Conc 33.6 % (30-36); Mean Corpuscular Hemoglobin 32.4 PG (26-34); Mean Corpuscular Volume 96.6 fL (80-100); Monocytes Absolute Auto 900 /uL (0-900); Monocytes Percent Auto 12.6 % (3-14); Neutrophils Absolute Auto 4900 /uL (1500-7000); Neutrophils Percent Auto 72.6 % (50-75); Platelet Count 184 X10^3/uL (150-400); Red Blood Cell Count 4.32 X10^6/uL (4.5-5.9); Red Cell Distribution Width 14.2 % (11.6-14.8); White Blood Cell Count 6.8 X10^3/uL (4.5-11.0)
[2020-02-03 18:55] LABS: Albumin 3.5 g/dL (3.5-5.0); BUN Creatinine Ratio 18.5 (6-22); Blood Urea Nitrogen 32 mg/dL (9-20); Carbon Dioxide 27 mmol/L (22-32); Chloride 102 mmol/L (98-107); Estimated Glomerular Filt Rate 38.4 mL/min (>60); Glucose 197 mg/dL (80-110); HEMOLYSIS < 15 (0-50); Phosphorous 4.2 mg/dL (2.3-3.7); Potassium 4.2 mmol/L (3.4-5.1); Sodium 134 mmol/L (137-145)
== END ==
PROVIDERS: Family Provider Family Medicine; Referring Provider Internal Medicine Nephrology; Visit Provider Internal Medicine Nephrology
DX: N18.32 Chronic kidney disease, stage 3b (principal)
CPT/HCPCS: 36415; 80069; 85025

== ENCOUNTER → 2020-09-06 13:39 | Outpatient (CLI) | payer MEDICARE, OTHER, SELFPAY ==
[2020-09-06 15:36] LABS: Alanine Aminotransferase 27 IU/L (<50); Albumin 3.7 g/dL (3.5-5.0); Albumin Globulin Ratio 1.2 (1.0-2.8); Alkaline Phosphatase 110 U/L (38-126); Aspartate Aminotransferase 33 IU/L (17-59); BUN Creatinine Ratio 15.1 (6-22); Bilirubin Total 0.8 mg/dL (0.2-1.3); Blood Urea Nitrogen 24 mg/dL (9-20); Calcium 9.3 mg/dL (8.4-10.2); Carbon Dioxide 24 mmol/L (22-32); Chloride 104 mmol/L (98-107); Cholesterol 124 mg/dL (140-199); Estimated Glomerular Filt Rate 42.2 mL/min (>60); Glucose 251 mg/dL (80-110); HDL Cholesterol 42 mg/dL (40-60); HEMOLYSIS < 15 (0-50); LDL Cholesterol Calculated 60 mg/dL (<100); Potassium 4.4 mmol/L (3.4-5.1); Sodium 135 mmol/L (137-145); Total Protein 6.7 g/dL (6.3-8.2); Triglycerides 110 mg/dL (35-150)
[2020-09-06 16:13] LABS: Free T4, Direct Thyroxine 1.57 ng/dL (0.78-2.19)
[2020-09-06 16:27] LABS: Thyroid Stimulating Hormone 3.91 uIU/mL (0.47-4.68)
== END ==
PROVIDERS: Family Provider Family Medicine; Referring Provider Internal Medicine; Visit Provider Internal Medicine
DX: E78.00 Pure hypercholesterolemia, unspecified (principal); I10 Essential (primary) hypertension; Z79.899 Other long term (current) drug therapy; E03.2 Hypothyroidism due to medicaments and other exogenous substances
CPT/HCPCS: 36415; 80053; 80061; 84439; 84443

== ENCOUNTER → 2020-09-15 12:34 | Outpatient (CLI) | payer MEDICARE, OTHER, SELFPAY ==
--- NOTE | 2020-09-15 12:40 | DI.RAD.S_ITS ---
PROCEDURE: XR CHEST 2V INDICATIONS: HYPOTHYROIDISM TECHNIQUE: 2 views of the chest were acquired. COMPARISON: [facility], CR, XR CHEST 2V, 12/31/2018, 11:28. FINDINGS: Surgical changes and devices: Median sternotomy wires and surgical clips are seen. Lungs and pleura: Lungs are clear. No pleural effusions or pneumothorax. Mediastinum: Mediastinal contours are normal. Heart size is normal. Bones and chest wall: No suspicious bony abnormalities. Soft tissues appear unremarkable. IMPRESSION: No acute cardiopulmonary pathology. Dictated by: Yves Foster M.D. on 09/15/2020 at 13:39 Approved by: Yves Foster M.D. on 09/15/2020 at 13:39
[2020-09-15 13:56] LABS: Hemoglobin A1C% w Est Avg Glu 7.8 % (4.0-6.0)
[2020-09-15 16:14] LABS: Vitamin D 25 Hydroxy (D3) 44.5 ng/mL (30.0-100.0)
[2020-09-16 09:36] LABS: Parathyroid Hormone Int 61 pg/mL (15-65)
[2020-09-16 11:35] LABS: BUN Creatinine Ratio 14.9 (6-22); Blood Urea Nitrogen 25 mg/dL (9-20); Calcium 9.3 mg/dL (8.4-10.2); Carbon Dioxide 21 mmol/L (22-32); Chloride 105 mmol/L (98-107); Estimated Glomerular Filt Rate 39.6 mL/min (>60); Glucose 140 mg/dL (80-110); HEMOLYSIS 28 (0-50); Potassium 4.6 mmol/L (3.4-5.1); Sodium 135 mmol/L (137-145)
== END ==
PROVIDERS: Internal Medicine Endocrinology, Diabetes & Metabolism; Family Provider Family Medicine; Referring Provider Internal Medicine; Visit Provider Internal Medicine
DX: Z79.899 Other long term (current) drug therapy (principal); Z79.4 Long term (current) use of insulin; E55.9 Vitamin D deficiency, unspecified; E03.2 Hypothyroidism due to medicaments and other exogenous substances; E78.00 Pure hypercholesterolemia, unspecified; E11.21 Type 2 diabetes mellitus with diabetic nephropathy; N18.31 Chronic kidney disease, stage 3a
CPT/HCPCS: 36415; 71046; 80048; 82306; 83036; 83970

== ENCOUNTER → 2020-11-08 11:29 | Outpatient (CLI) | payer MEDICARE, OTHER, SELFPAY ==
[2020-11-08 14:41] LABS: COVID19 -Nasal RAPID Negative (Negative)
== END ==
PROVIDERS: Family Provider Family Medicine; Visit Provider Nurse Practitioner Family
DX: Z01.812 Encounter for preprocedural laboratory examination (principal); Z20.822 Contact with and (suspected) exposure to COVID-19
CPT/HCPCS: 87635; C9803

== ENCOUNTER 2020-11-09 08:44 | Day surgery (SDC) | payer MEDICARE, OTHER, SELFPAY ==
[2020-11-09 09:35] VITALS: BP 146/65; PULSE 64; RESP 16; TEMP 36.4; O2SAT 95; BMI 34.2
[2020-11-09] MEDS: CATARACT EYE COMPOUND (10 DROPS/SYRINGE) 3 DROPS EYE-OP (09:56)
[2020-11-09] MEDS: PROPARACAINE 0.5% OPHTH SOL 2 DROPS EYE-OP (09:56)
--- NOTE | 2020-11-09 10:42 | PM.PREOP ---
Pre-operative Note Interval Note History & Physical reviewed/Exam performed by Physician: Yes Changes to H&P: No
--- NOTE | 2020-11-09 10:42 | PM.OP.1 ---
Operative Date/Time/Diagnoses Pre-op diagnosis: Nuclear Cataract Left eye Post-op diagnosis: same Procedure & Clinicians Same procedure as scheduled: Yes Surgeon: Carlton Reyes Anesthesia Type: MAC +/- and Sedation Operative Notes Procedure in detail: Patient brought to the operating suite. Tetracaine drops placed in the left eye. Patient was prepped and draped in sterile manner. Wire lid speculum was placed in the eye. Betadine drops were placed on the eye. This was irrigated. Lidocaine jelly was placed on the eye. A paracentesis port was created with a side-port blade. 0.1 mL 1% preservative free lidocaine was injected into the anterior chamber. The anterior chamber was deepened with viscoelastic. 2.6 mm keratome was used to create a temporal clear corneal incision. Cystotome and Utrata forceps were used to create continuous tear capsulorrhexis. Balanced salt solution was used to hydro dissect the nucleus. The phacoemulsification handpiece was inserted and the nucleus was removed using the stop and chop technique. The irrigation aspiration handpiece was inserted and the remaining cortex was removed. Anterior chamber was deepened with viscoelastic. An Delatorre DIB00 intraocular lens with a power of 18.5 was injected into the capsular bag. Irrigation aspiration handpiece was inserted and the remaining viscoelastic was removed. Incision was hydrated with balanced salt solution and found to be leak free with pressure with Weck-Meg sponges. 0.1 mL Vigamox injected anterior chamber. 0.3 mL Kenalog 10 mg was injected subconjunctivally. Lid speculum was removed. The patient left the operating room in excellent condition. Complications: none Post-operative Condition: stable Disposition: same day surgery
--- NOTE | 2020-11-09 10:49 | SUR.PREOP ---
Blood sugar check is 66; notified anesthesiologist, Dr Gruber; hallie to give patient one cup of apple juice and recheck in 15 minutes. Patient denies any hypoglycemiia symptoms ; GCS 15.
[2020-11-09] MEDS: HYALURONATE SODIUM 30 MG-10 MG/ML SYRINGES 1 BOX INTRAOCULA (11:21)
[2020-11-09] MEDS: PHENYLEPHRINE/LIDOCAINE VIAL (OR) 0.2 ML EYE-OP (11:21)
[2020-11-09] MEDS: MOXIFLOXACIN INJ 4 MG/0.8 ML VIAL 0.5 MG EYE-OP (11:21)
[2020-11-09] MEDS: LIDOCAINE 2% (GLYDO) 6 ML GEL TOP (11:21)
[2020-11-09] MEDS: TETRACAINE 0.5% OPHTH DROPS 4 ML 2 DROPS EYE-OP (11:22)
[2020-11-09] MEDS: TRIAMCINOLONE 50 MG/5 ML VIAL INJ (11:22)
[2020-11-09] MEDS: BALANCED SALT IRRIG SOLN NO.2 500 ML, EPINEPHrine 1 MG IRR (11:24)
[2020-11-09 11:35] VITALS: BP 138/68; PULSE 62; RESP 16; TEMP 36.2; O2SAT 98
== END 2020-11-09 12:00 | disposition home or self-care (01) ==
PROVIDERS: Family Provider Family Medicine; Referring Provider Ophthalmology; Visit Provider Ophthalmology
PROC: (CPT 66984; principal; 2020-11-09 10:45)
DX: H25.12 Age-related nuclear cataract, left eye (principal); E11.9 Type 2 diabetes mellitus without complications; I10 Essential (primary) hypertension; I51.9 Heart disease, unspecified; N28.9 Disorder of kidney and ureter, unspecified; Z79.4 Long term (current) use of insulin
CPT/HCPCS: 66984; 82962; J0171; J2250; J3301

== ENCOUNTER → 2020-11-29 09:20 | Outpatient (CLI) | payer MEDICARE, OTHER, SELFPAY ==
[2020-11-29 15:09] LABS: COVID19 -Nasal RAPID Negative (Negative)
== END ==
PROVIDERS: Family Provider Family Medicine; Visit Provider Nurse Practitioner Family
DX: Z20.822 Contact with and (suspected) exposure to COVID-19 (principal); Z01.812 Encounter for preprocedural laboratory examination
CPT/HCPCS: 87635; C9803

== ENCOUNTER 2020-11-30 07:02 | Day surgery (SDC) | payer MEDICARE, OTHER, SELFPAY ==
[2020-11-30] MEDS: PROPARACAINE 0.5% OPHTH SOL 2 DROPS EYE-OP (07:13)
[2020-11-30] MEDS: CATARACT EYE COMPOUND (10 DROPS/SYRINGE) 3 DROPS EYE-OP (07:20)
[2020-11-30 07:22] VITALS: BP 146/59; PULSE 62; RESP 16; TEMP 36.3; O2SAT 96
--- NOTE | 2020-11-30 08:06 | PM.PREOP ---
Pre-operative Note Interval Note History & Physical reviewed/Exam performed by Physician: Yes Changes to H&P: No
--- NOTE | 2020-11-30 08:07 | PM.OP.1 ---
Operative Date/Time/Diagnoses Pre-op diagnosis: Nuclear cataract right eye Procedure & Clinicians Procedure: Cataract Surgery Same procedure as scheduled: Yes Surgeon: Carlton Reyes Anesthesia Type: MAC +/- and Sedation Operative Notes Procedure in detail: Patient brought to the operating suite. Tetracaine drops placed in the right eye. Patient was prepped and draped in sterile manner. Wire lid speculum was placed in the eye. Betadine drops were placed on the eye. This was irrigated. Lidocaine jelly was placed on the eye. A paracentesis port was created with a side-port blade. 0.1 mL 1% preservative free lidocaine was injected into the anterior chamber. The anterior chamber was deepened with viscoelastic. 2.6 mm keratome was used to create a temporal clear corneal incision. Cystotome and Utrata forceps were used to create continuous tear capsulorrhexis. Balanced salt solution was used to hydro dissect the nucleus. The phacoemulsification handpiece was inserted and the nucleus was removed using the stop and chop technique. The irrigation aspiration handpiece was inserted and the remaining cortex was removed. Anterior chamber was deepened with viscoelastic. An Delatorre DIB00 intraocular lens with a power of 18.5 was injected into the capsular bag. Irrigation aspiration handpiece was inserted and the remaining viscoelastic was removed. Incision was hydrated with balanced salt solution and found to be leak free with pressure with Weck-Meg sponges. 0.1 mL Vigamox injected anterior chamber. 0.3 mL Kenalog 10 mg was injected subconjunctivally. Lid speculum was removed. The patient left the operating room in excellent condition. Complications: none Post-operative Condition: stable Disposition: same day surgery
[2020-11-30] MEDS: MOXIFLOXACIN INJ 4 MG/0.8 ML VIAL 0.5 MG EYE-OP (08:19)
[2020-11-30] MEDS: LIDOCAINE 2% (GLYDO) 6 ML GEL TOP (08:19)
[2020-11-30] MEDS: PHENYLEPHRINE/LIDOCAINE VIAL (OR) 0.2 ML EYE-OP (08:19)
[2020-11-30] MEDS: TETRACAINE 0.5% OPHTH DROPS 4 ML 2 DROPS EYE-OP (08:19)
[2020-11-30] MEDS: TRIAMCINOLONE 50 MG/5 ML VIAL INJ (08:20)
[2020-11-30] MEDS: HYALURONATE SODIUM 30 MG-10 MG/ML SYRINGES 1 BOX INTRAOCULA (08:20)
[2020-11-30] MEDS: BALANCED SALT IRRIG SOLN NO.2 500 ML, EPINEPHrine 1 MG IRR (08:20)
[2020-11-30 08:35] VITALS: BP 150/73; PULSE 63; RESP 18; TEMP 36.5; O2SAT 98
[2020-11-30 08:50] VITALS: BP 167/79; PULSE 63; RESP 18; TEMP 36.6; O2SAT 97
--- NOTE | 2020-11-30 09:09 | SUR.PHASEII ---
0855-Pt up and ambulating gait steady, right eye site clear with plastic patch attached, denies pain or nausea, drinking coffee with no problems, dressed and ready to go home, pt dcd in stable condition with all belongings and all dc instructions verbalizes understanding and has roll of paper tape for plastic patch
== END 2020-11-30 09:00 | disposition home or self-care (01) ==
PROVIDERS: Family Provider Family Medicine; Referring Provider Ophthalmology; Visit Provider Ophthalmology
PROC: (CPT 66984; principal; 2020-11-30 08:15)
DX: H25.11 Age-related nuclear cataract, right eye (principal); E11.9 Type 2 diabetes mellitus without complications; Z79.84 Long term (current) use of oral hypoglycemic drugs; Z79.4 Long term (current) use of insulin; I10 Essential (primary) hypertension; E78.5 Hyperlipidemia, unspecified; I51.9 Heart disease, unspecified; N18.9 Chronic kidney disease, unspecified
CPT/HCPCS: 66984; 82962; J0171; J2250; J3301

== ENCOUNTER 2021-03-21 23:36 | Emergency (ER) | payer MEDICARE, OTHER, SELFPAY ==
[2021-03-21 23:43] VITALS: PULSE 68; O2SAT 97
[2021-03-21 23:46] VITALS: BP 188/81; PULSE 67; O2SAT 97
[2021-03-21 23:51] VITALS: BP 188/81; PULSE 66; RESP 18; TEMP 36.5; O2SAT 97; BMI 34.2
--- NOTE | 2021-03-21 23:52 | DI.RAD.S_ITS ---
PROCEDURE: XR CHEST 1V INDICATIONS: chest pain TECHNIQUE: One view of the chest was acquired. COMPARISON: [facility], , XR CHEST 1V, 09/23/2017, 13:08. FINDINGS: Surgical changes and devices: Changes of median sternotomy for CABG. Lungs and pleura: Mildly increased interstitial markings in both lungs with cephalization of pulmonary vessels. No pleural effusions or pneumothorax. Mediastinum: Enlarged heart as seen on prior studies. Otherwise normal mediastinal contours. Aortic atherosclerosis. Bones and chest wall: No suspicious bony lesions. Overlying soft tissues appear unremarkable. IMPRESSION: Mild cardiogenic pulmonary edema and cardiomegaly. Dictated by: Lebron Morrison M.D. on 03/22/2021 at 0:08 Approved by: Lebron Morrison M.D. on 03/22/2021 at 0:09
[2021-03-22] VITALS (10 sets, daily range): BP systolic 162–173; BP diastolic 73–79; PULSE 63–71; RESP 13–26; O2SAT 93–97
[2021-03-22] LABS: Add Manual Diff / Slide Review NO; Basophils Absolute Auto 0 /uL (0-100); Basophils Percent Auto 0.4 % (0-2); Eosinophils Absolute Auto 200 /uL (0-450); Eosinophils Percent Auto 1.8 % (2-4); Hematocrit 42.2 % (41-53); Hemoglobin 13.8 g/dL (13.5-17.5); Lymphocytes Absolute Auto 700 /uL (1100-4500); Lymphocytes Percent Auto 6.6 % (25-40); Mean Corpuscular HGB Conc 32.6 % (30-36); Mean Corpuscular Hemoglobin 32.3 PG (26-34); Monocytes Absolute Auto 1000 /uL (0-900); Monocytes Percent Auto 8.9 % (3-14); Neutrophils Absolute Auto 9300 /uL (1500-7000); Neutrophils Percent Auto 82.3 % (50-75); Platelet Count 222 X10^3/uL (150-400); Red Blood Cell Count 4.26 X10^6/uL (4.5-5.9); Red Cell Distribution Width 14.8 % (11.6-14.8); White Blood Cell Count 11.3 X10^3/uL (4.5-11.0)
[2021-03-22 00:07] LABS: Alanine Aminotransferase 38 IU/L (<50); Albumin 3.8 g/dL (3.5-5.0); Albumin Globulin Ratio 1.2 (1.0-2.8); Alkaline Phosphatase 123 U/L (38-126); Aspartate Aminotransferase 58 IU/L (17-59); BUN Creatinine Ratio 17.2 (6-22); Bilirubin Total 0.7 mg/dL (0.2-1.3); Blood Urea Nitrogen 28 mg/dL (9-20); Calcium 9.5 mg/dL (8.4-10.2); Carbon Dioxide 32 mmol/L (22-32); Chloride 103 mmol/L (98-107); Creatine Kinase 99 U/L (55-170); Globulin 3.3 g/dL (1.7-4.1); Glucose 193 mg/dL (80-110); HEMOLYSIS 114 (0-50); Lipase 115 U/L (23-300); Magnesium 2.1 mg/dL (1.6-2.3); Sodium 137 mmol/L (137-145); Total Protein 7.1 g/dL (6.3-8.2)
[2021-03-22 00:08] LABS: Potassium 5.3 mmol/L (3.4-5.1)
--- NOTE | 2021-03-22 00:33 | ED.CHESTPAIN ---
HPI - Chest Pain General Chief Complaint: Chest Pain Stated Complaint: Chest Pain Time Seen by Provider: 03/22/21 00:06 Source: patient and EMS Mode of arrival: EMS Limitations: no limitations History of Present Illness HPI narrative: Patient brought in by ambulance from home for left-sided chest pain that improved with nitroglycerin. He took his 's nitro. It was 5 at a 10 and currently 0. Patient is on Eliquis for atrial fibrillation. Has history of multiple myocardial infarctions in the past but none recently. Last infarction was in 2012. He has had 2 triple bypass. No recent stress test. Patient sees Dr. Card for cardiology yet scheduled [facility]. Denies any dyspnea or nausea. Left chest pain radiates to the left jaw and left arm. In the past 4 months has had decreased energy. No exertional chest pain or dyspnea. Related Data Home Medications Medication Instructions Recorded Confirmed metoprolol tartrate 50 mg tablet 50 mg PO BID #0 09/23/11 09/23/17 atorvastatin 40 mg tablet (Lipitor) 80 mg PO QDAY #0 09/24/11 09/23/17 amlodipine 10 mg tablet 10 mg PO DAILY 09/23/17 11/09/20 chlorthalidone 25 mg tablet 25 mg PO DAILY 09/23/17 09/23/17 insulin glargine 100 unit/mL (3 35 units SUB-Q DAILY 09/23/17 09/23/17 mL) subcutaneous pen irbesartan 300 mg tablet 300 mg PO DAILY 09/23/17 09/23/17 Eliquis 4 mg PO BID 11/30/20 11/30/20 amiodarone 400 mg PO DAILY 11/30/20 11/30/20 Previous Rx's Medication Instructions Recorded furosemide 20 mg tablet 20 mg PO DAILY #30 tab 09/23/17 Allergies Allergy/AdvReac Type Severity Reaction Status Date / Time lisinopril AdvReac Mild COUGH Verified 11/30/20 07:15 Review of Systems Review of Systems Narrative: GENERAL: Denies chills, fatigue, malaise, fever, sweats. HEENT: Denies sinus pain, ear pain, sore throat RESPIRATORY: Denies dyspnea, cough CARDIOVASCULAR: Positive for chest pain, negative palpitations GASTROINTESTINAL: Denies nausea, vomiting, abdominal pain : Denies dysuria, frequency, hematuria MUSCULOSKELETAL: denies muscle or bony pain SKIN: Denies rash, skin lesions NEUROLOGIC: Denies weakness, numbness ROS Unobtainable: All systems reviewed & are unremarkable except as noted in HPI and below Patient History Medical History (Updated 03/22/21 @ 05:23 by Julien Cain MD) Atrial fibrillation Diabetes Myocardial infarct Social History household members: family Smoking Status: Former smoker alcohol intake: former Smoking Status: Former smoker alcohol intake frequency: 0-2 drinks per day Substance Use Type: does not use Exam Narrative Exam Narrative: GENERAL: in no distress, not toxic not dyspneic HEAD: Normocephalic. EYES: Pupils equal round No scleral icterus. ENT: Mucous membranes moist. NECK: Trachea midline. CARDIOVASCULAR: Regular rate and rhythm without murmurs RESPIRATORY: Clear to auscultation. Breath sounds equal bilaterally. No wheezes, rales, or rhonchi. GASTROINTESTINAL: Abdomen soft, non-tender EXTREMITIES: No gross deformities. NEURO: AOx4. SKIN: Warm and dry PSYCH: Not anxious, is cooperative Initial Vital Signs Initial Vital Signs: Vital Signs Pulse Rate 68 03/21/21 23:43 Pulse Oximetry 97 03/21/21 23:43 Course Course Course Narrative: No new issues during her stay however no bed available and surrounding hospitals including [facility]. Will have to board until the morning Orders Ordered: Discontinued Medications Heparin Sodium/Dextrose (Heparin Drip) 25,000 unit in 500 mls @ 28.304 mls/hr IV CONT CLARIBEL; Protocol Last Admin: 03/22/21 01:48 Dose: 12 units/kg/hr, 28.304 mls/hr Documented by: LISANDRA Metoprolol Succinate (Metoprolol Er 25 Mg Tablet) 25 mg PO NOW ONE Stop: 03/22/21 00:53 Last Admin: 03/22/21 01:53 Dose: 25 mg Documented by: LISANDRA Reevaluation(s) Reevaluation #1: Reviewed patient and results and understands will need to wait here at this department until bed available at [facility] in the morning. Time: 00:47 Reevaluation #2: Repeat troponin noted. Patient remains chest pain-free. Updated patient being transferred to [facility] emergency department Time: 05:28 Reevaluation #3: Spoke with Dr. Card, cardiology again, patient is going to be transferred to [facility] Emergency Department Time: 05:31 Consultations Consultation #1: Spoke with Dr. Card, patient's material scheduler. She desires patient to start heparin drip without bolus. Hold Eliquis. No aspirin. She has reviewed the EKGs. She prefers patient to be transferred to her hospital at [facility] for continuity of care. At this time patient complicated workup because of past bypasses will make catheterization difficult. Consultation #2: Spoke with washhouse hand at [facility]. She will place him on waiting list Time: 00:47 Consultation #3: Spoke with [facility] emergency department, Dr. Mac, will accept patient. We both spoke with [facility] washhouse hand nurse, recommends ER to ER transfer Time: 05:29 Vital Signs Vital signs: Vital Signs - 8 hr 03/21/21 23:43 03/21/21 23:46 03/21/21 23:51 Temperature 97.7 F Pulse Rate 68 67 66 Respiratory Rate 18 Blood Pressure 188/81 H 188/81 H Pulse Oximetry 97 97 97 03/22/21 00:00 03/22/21 00:30 03/22/21 01:00 Temperature Pulse Rate 65 65 66 Respiratory Rate 15 19 21 Blood Pressure 166/77 H 171/73 H Pulse Oximetry 96 96 97 03/22/21 01:05 03/22/21 01:30 03/22/21 02:00 Temperature Pulse Rate 64 63 71 Respiratory Rate 21 15 20 Blood Pressure 173/79 H 162/74 H Pulse Oximetry 97 95 96 03/22/21 02:30 03/22/21 03:00 03/22/21 03:30 Temperature Pulse Rate 65 65 65 Respiratory Rate 14 13 26 H Blood Pressure Pulse Oximetry 95 95 93 03/22/21 04:00 Temperature Pulse Rate 65 Respiratory Rate 16 Blood Pressure 164/76 H Pulse Oximetry 96 MDM - Chest Pain Differential Diagnosis Differential diagnosis: Likely stable angina, unstable angina pectoris, atypical chest pain, chest pain and other (Non-STEMI) Lab Data Result diagrams: 03/21/21 23:57 03/21/21 23:57 Labs: Lab Results 03/21/21 03/21/21 03/22/21 Range/Units 23:57 23:57 01:40 WBC 11.3 H (4.5-11.0) X10^3/uL RBC 4.26 L (4.5-5.9) X10^6/uL Hgb 13.8 (13.5-17.5) g/dL Hct 42.2 (41-53) % MCV 99.0 (80-100) fL MCH 32.3 (26-34) PG MCHC 32.6 (30-36) % RDW 14.8 (11.6-14.8) % Plt Count 222 (150-400) X10^3/uL Neut % (Auto) 82.3 H (50-75) % Lymph % (Auto) 6.6 L (25-40) % Harrison % (Auto) 8.9 (3-14) % Eos % (Auto) 1.8 L (2-4) % Baso % (Auto) 0.4 (0-2) % Neut # (Auto) 9300 H (3860-0510) /uL Lymph # (Auto) 700 L (9976-9589) /uL Harrison # (Auto) 1000 H (0-900) /uL Eos # (Auto) 200 (0-450) /uL Baso # (Auto) 0 (0-100) /uL PT 13.0 H (10.1-12.7) SECONDS INR 1.2 (0.9-1.3) APTT 35 (26.4-36.2) SECONDS Sodium 137 (137-145) mmol/L Potassium 5.3 H (3.4-5.1) mmol/L Chloride 103 (98-107) mmol/L Carbon Dioxide 32 (22-32) mmol/L BUN 28 H (9-20) mg/dL Creatinine 1.63 H (0.66-1.25) mg/dL Estimated GFR 41.0 L (>60) mL/min BUN/Creatinine Ratio 17.2 (6-22) Glucose 193 H (80-110) mg/dL Calcium 9.5 (8.4-10.2) mg/dL Magnesium 2.1 (1.6-2.3) mg/dL Total Bilirubin 0.7 (0.2-1.3) mg/dL AST 58 (17-59) IU/L ALT 38 (<50) IU/L Alkaline Phosphatase 123 (38-126) U/L Total Creatine Kinase 99 (55-170) U/L CK-MB (CK-2) TNP CK-MB (CK-2) Rel Index TNP Troponin I 0.080 H (0.01-0.034) ng/mL Total Protein 7.1 (6.3-8.2) g/dL Albumin 3.8 (3.5-5.0) g/dL Globulin 3.3 (1.7-4.1) g/dL Albumin/Globulin Ratio 1.2 (1.0-2.8) Lipase 115 (23-300) U/L SARS-CoV-2 (PCR) (Negative) 03/22/21 03/22/21 Range/Units 04:00 05:52 WBC (4.5-11.0) X10^3/uL RBC (4.5-5.9) X10^6/uL Hgb (13.5-17.5) g/dL Hct (41-53) % MCV (80-100) fL MCH (26-34) PG MCHC (30-36) % RDW (11.6-14.8) % Plt Count (150-400) X10^3/uL Neut % (Auto) (50-75) % Lymph % (Auto) (25-40) % Harrison % (Auto) (3-14) % Eos % (Auto) (2-4) % Baso % (Auto) (0-2) % Neut # (Auto) (1294-9136) /uL Lymph # (Auto) (9074-8502) /uL Harrison # (Auto) (0-900) /uL Eos # (Auto) (0-450) /uL Baso # (Auto) (0-100) /uL PT (10.1-12.7) SECONDS INR (0.9-1.3) APTT (26.4-36.2) SECONDS Sodium (137-145) mmol/L Potassium (3.4-5.1) mmol/L Chloride (98-107) mmol/L Carbon Dioxide (22-32) mmol/L BUN (9-20) mg/dL Creatinine (0.66-1.25) mg/dL Estimated GFR (>60) mL/min BUN/Creatinine Ratio (6-22) Glucose (80-110) mg/dL Calcium (8.4-10.2) mg/dL Magnesium (1.6-2.3) mg/dL Total Bilirubin (0.2-1.3) mg/dL AST (17-59) IU/L ALT (<50) IU/L Alkaline Phosphatase (38-126) U/L Total Creatine Kinase (55-170) U/L CK-MB (CK-2) CK-MB (CK-2) Rel Index Troponin I 2.250 H* (0.01-0.034) ng/mL Total Protein (6.3-8.2) g/dL Albumin (3.5-5.0) g/dL Globulin (1.7-4.1) g/dL Albumin/Globulin Ratio (1.0-2.8) Lipase (23-300) U/L SARS-CoV-2 (PCR) Negative (Negative) Imaging Data Chest x-ray: Radiologist's Impression: [address] [address] XRay Report Signed Patient: Mateus Chu MR#: [id number] : 1940 Acct:[id number] Age/Sex: 80 / M Date of Service: 03/21/21 Loc: ED Accession Number: [id number] ?? Procedure: XR chest 1V Ordering Provider: Julien Cain MD PROCEDURE:? XR CHEST 1V ? INDICATIONS:? chest pain ? TECHNIQUE:? One view of the chest was acquired.? ? COMPARISON:? [facility], , XR CHEST 1V, 09/23/2017, 13:08. ? FINDINGS:? ? Surgical changes and devices:? Changes of median sternotomy for CABG. ? Lungs and pleura:? Mildly increased interstitial markings in both lungs with cephalization of pulmonary vessels.? No pleural effusions or pneumothorax.? ? Mediastinum:? Enlarged heart as seen on prior studies.? Otherwise normal mediastinal contours.? Aortic atherosclerosis. ? Bones and chest wall:? No suspicious bony lesions.? Overlying soft tissues appear unremarkable.? ? IMPRESSION:? Mild cardiogenic pulmonary edema and cardiomegaly. ? ? Dictated by: Lebron Morrison M.D. on 03/22/2021 at 0:08 ? ? Approved by: Lebron Morrison M.D. on 03/22/2021 at 0:09 ? ECG Data Prior ECG tracings: available for review Interpretation: Reviewed with material scheduler, Dr. Card. Sinus rhythm right bundle-branch block rate 67. EKG changes from September 23, 2017 at 12:42 p.m. Repeat EKG at 5:13 a.m.. Sinus rhythm with 1st degree block, right bundle branch block. No ST elevation MDM Narrative Medical decision making narrative: Appropriate for transfer. Patient needs continue care with Dr. Card at schedule the hospital. At this time no bed available tonight. Will board until the morning. Currently no chest pain Patient serial enzymes are being done. Heparin is being given. Currently no chest pain Critical Care Time Critical Care Time Attestation: Critical Care Time 35 minutes: Critical care time is separate from other billable procedures. This critical care time includes consultation with family and other consulting doctors, review of records, and interpretation of data from labs, EKGs, imaging, etc. Discharge Plan Departure Patient Disposition: [facility] Clinical Impression: Non-STEMI (non-ST elevated myocardial infarction) Prescriptions: No Action metoprolol tartrate 50 MG tablet 50 mg PO BID Qty: 0 0RF atorvastatin [Lipitor] 40 MG tablet 80 mg PO QDAY Qty: 0 0RF chlorthalidone 25 mg tablet 25 mg PO DAILY 0RF amlodipine 10 mg tablet 10 mg PO DAILY 0RF irbesartan 300 mg tablet 300 mg PO DAILY 0RF Lantus Solostar U-100 Insulin 100 unit/mL (3 mL) insulin pen 35 units Sub-Q DAILY 0RF furosemide 20 mg tablet 20 mg PO DAILY Qty: 30 0RF amiodarone 400 mg PO DAILY 0RF Eliquis 4 mg PO BID 0RF Referrals: Miscellaneous,Doctor, [Primary Care Provider] -
[2021-03-22] MEDS: HEPARIN DRIP 25,000 UNIT/500 ML IV.SOLN 28.304 UNIT IV (01:48)
[2021-03-22] MEDS: METOPROLOL ER 25 MG TABLET PO (01:53)
[2021-03-22 01:54] LABS: INR 1.2 (0.9-1.3)
[2021-03-22 01:56] LABS: PTT Partial Thromboplastin Tim 35 SECONDS (26.4-36.2)
--- NOTE | 2021-03-22 02:00 | PC.NURSE ---
pt placed in hospital bed, warm blanket given and lights dimmed for comfort
--- NOTE | 2021-03-22 04:08 | PC.NURSE ---
pt continually resting comfortably without c/o cp
--- NOTE | 2021-03-22 05:30 | PC.NURSE ---
updated pt on plan of care, with pt's permission called pt's daughter and updated her and the pt's
[2021-03-22 06:13] LABS: COVID19 -Nasal RAPID Negative (Negative)
== END 2021-03-22 06:47 | disposition short-term general hospital (02) ==
PROVIDERS: Emergency Provider Emergency Medicine; Family Provider Family Medicine
DX: I21.4 Non-ST elevation (NSTEMI) myocardial infarction (principal); I25.2 Old myocardial infarction; Z79.01 Long term (current) use of anticoagulants; Z87.891 Personal history of nicotine dependence; Z20.822 Contact with and (suspected) exposure to COVID-19
CPT/HCPCS: 36415; 71045; 80053; 82550; 82553; 83690; 83735; 84484; 85025; 85610; 85730; 87635; 93005; 96374; 99284; 99291; C9803; J1644

== ENCOUNTER 2021-05-10 10:03 | Inpatient (IN) | payer MEDICARE, OTHER, SELFPAY ==
[2021-05-10] VITALS (21 sets, daily range): BP systolic 115–170; BP diastolic 54–108; PULSE 58–66; RESP 17–22; TEMP 36.4–37.2; O2SAT 94–100; BMI 34.9
--- NOTE | 2021-05-10 10:18 | ED_ITS ---
HPI - SOB/Dyspnea General Chief Complaint: Shortness of Breath/Dyspnea Stated Complaint: Chest Pain Time Seen by Provider: 05/10/21 10:10 History of Present Illness HPI Narrative: Patient is a 80-year-old male with history of multiple MIs 2 triple bypass surgeries an NSTEMI in February of 2021, congestive heart failure for former smoker of 35 years but no diagnosis of COPD, of atrial fibrillation on Eliquis, insulin-dependent diabetes, presenting today with increasing shortness of brea ath. He says he sleeps in a recliner for the last 6 months due to breathing issues. He has a chronic cough which is not any worse. This morning he has felt like his breathing was worse than normal and he could have used some oxygen. He is not hypoxic on room but he is a little tachypneic. He denies any chest pain he denies fever. He does have some lower extremity edema which he states is chronic. Related Data Home Medications Medication Instructions Recorded Confirmed metoprolol tartrate 50 mg tablet 50 mg PO BID #0 09/23/11 05/10/21 atorvastatin 40 mg tablet (Lipitor) 80 mg PO QDAY #0 09/24/11 05/10/21 amlodipine 10 mg tablet 10 mg PO DAILY 09/23/17 05/10/21 chlorthalidone 25 mg tablet 25 mg PO DAILY 09/23/17 05/10/21 insulin glargine 100 unit/mL (3 35 units SUB-Q DAILY 09/23/17 05/10/21 mL) subcutaneous pen irbesartan 300 mg tablet 300 mg PO DAILY 09/23/17 09/23/17 Eliquis 4 mg PO BID 11/30/20 05/10/21 amiodarone 400 mg PO DAILY 11/30/20 05/10/21 Previous Rx's Medication Instructions Recorded furosemide 20 mg tablet 20 mg PO DAILY #30 tab 09/23/17 Allergies Allergy/AdvReac Type Severity Reaction Status Date / Time lisinopril AdvReac Mild COUGH Verified 11/30/20 07:15 Review of Systems Review of Systems Narrative: GENERAL: Denies chills, fatigue, malaise, fever, sweats, travel HEENT: Denies sinus pain, ear pain, sore throat, difficulty swallowing, neck pain RESPIRATORY: See HPI CARDIOVASCULAR: Denies chest pain, palpitations, orthopnea, edema GASTROINTESTINAL: Denies nausea, vomiting, abdominal pain, diarrhea, cons tipation, melena. : Denies dysuria, frequency, incontinence, hematuria, urinary retention, flank pain. MUSCULOSKELETAL: Denies weakness, joint pain, or bony pain SKIN: No rash, no erythema, no pruritus NEUROLOGIC: Denies weakness, dizziness, headache, numbness, change in speech, confusion PSYCHIATRIC: No concerning psychosocial issues. 12 point review of systems is negative except for those stated above and HPI Patient History Medical History (Updated 05/10/21 @ 16:29 by Naatlia Kohler DO) Atrial fibrillation Diabetes Myocardial infarct Social History household members: family Smoking Status: Former smoker alcohol intake: former Smoking Status: Former smoker alcohol intake frequency: 0-2 drinks per day Substance Use Type: does not use Exam Initial Vital Signs Initial Vital Signs: Vital Signs Temperature 98.9 F 05/10/21 10:00 Pulse Rate 64 05/10/21 10:00 Respiratory Rate 18 05/10/21 10:00 Blood Pressure 150/67 H 05/10/21 10:00 Pulse Oximetry 96 05/10/21 10:00 GENERAL: Alert 80-year-old male child respiratory distress HEENT: Head atraumatic,EOMI, pupils reactive, face symmetric, moist mucous membranes CARDIOVASCULAR: Regular rate and rhythm without murmurs, rubs or gallops. RESPIRATORY: Breath sounds equal bilaterally, no wheezes rales or rhonchi. ABDOMEN: Soft, nontender. Normoactive bowel sounds all 4 quadrants. No guarding or rebound. Reducible periumbilical hernia : No CVA tenderness EXTREMITIES: Normal range of motion, no clubbing. +3 pitting edema bilaterally Neurovascularly intact NEUROLOGICAL: Alert and oriented x4.Normal gait and speech. SKIN: Very dry icthyosisl like skin Course Orders Ordered: ED Orders 05/10/21 10:15 EKG-12 Lead Stat 05/10/21 10:19 XR chest 1V Stat 05/10/21 11:10 Blood Culture Stat Complete Blood Count AUTO DIFF Stat Comprehensive Metabolic Panel Stat Lactate (Lactic Acid) Stat Magnesium Stat NT-proBNP (BNP-Adult 18+) Stat Prothrombin Time INR Stat Troponin & CK Cardiac Panel Stat 05/10/21 13:10 COVID19 -Nasal swab/Pre-Proc Stat 05/10/21 13:20 Trop I [Troponin I] Stat Discontinued Medications Furosemide (Furosemide 40 Mg/4 Ml Vial) 40 mg IV NOW ONE Stop: 05/10/21 11:59 Last Admin: 05/10/21 12:04 Dose: 40 mg Documented by: IVELISSE Vital Signs Vital signs: Vital Signs - 8 hr 05/10/21 10:00 05/10/21 10:45 05/10/21 11:00 Temperature 98.9 F Pulse Rate 64 63 62 Respiratory Rate 18 Blood Pressure 150/67 H Pulse Oximetry 96 94 05/10/21 11:30 05/10/21 11:41 05/10/21 12:00 Temperature Pulse Rate 59 L 60 59 L Respiratory Rate 17 18 Blood Pressure 153/67 H 147/67 H Pulse Oximetry 99 100 99 05/10/21 12:30 05/10/21 13:00 05/10/21 13:01 Temperature Pulse Rate 63 65 65 Respiratory Rate Blood Pressure 157/72 H 154/68 H Pulse Oximetry 97 96 98 05/10/21 13:30 05/10/21 14:00 05/10/21 14:01 Temperature Pulse Rate 61 59 L 59 L Respiratory Rate Blood Pressure 141/63 H 170/72 H Pulse Oximetry 98 97 97 05/10/21 14:19 05/10/21 14:30 05/10/21 15:00 Temperature Pulse Rate 64 60 58 L Respiratory Rate Blood Pressure 146/108 H 146/67 H 128/61 Pulse Oximetry 98 98 98 05/10/21 15:30 Temperature Pulse Rate 58 L Respiratory Rate Blood Pressure 137/64 Pulse Oximetry 98 MDM - SOB/Dyspnea Lab Data Result diagrams: 05/10/21 11:10 05/10/21 11:10 Labs: Lab Results 05/10/21 05/10/21 05/10/21 Range/Units 11:10 11:10 11:10 WBC 8.4 (4.5-11.0) X10^3/uL RBC 3.47 L (4.5-5.9) X10^6/uL Hgb 11.2 L (13.5-17.5) g/dL Hct 33.5 L (41-53) % MCV 96.5 (80-100) fL MCH 32.4 (26-34) PG MCHC 33.6 (30-36) % RDW 15.4 H (11.6-14.8) % Plt Count 250 (150-400) X10^3/uL Neut % (Auto) 77.9 H (50-75) % Lymph % (Auto) 6.9 L (25-40) % Polk % (Auto) 12.4 (3-14) % Eos % (Auto) 2.2 (2-4) % Baso % (Auto) 0.6 (0-2) % Neut # (Auto) 6600 (9281-6426) /uL Lymph # (Auto) 600 L (2122-5970) /uL Polk # (Auto) 1000 H (0-900) /uL Eos # (Auto) 200 (0-450) /uL Baso # (Auto) 100 (0-100) /uL PT 17.4 H (10.1-12.7) SECONDS INR 1.5 H (0.9-1.3) Sodium (137-145) mmol/L Potassium (3.4-5.1) mmol/L Chloride (98-107) mmol/L Carbon Dioxide (22-32) mmol/L BUN (9-20) mg/dL Creatinine (0.66-1.25) mg/dL Estimated GFR (>60) mL/min BUN/Creatinine Ratio (6-22) Glucose (80-110) mg/dL Lactate (0.7-2.1) mmol/L Calcium (8.4-10.2) mg/dL Magnesium (1.6-2.3) mg/dL Total Bilirubin (0.2-1.3) mg/dL AST (17-59) IU/L ALT (<50) IU/L Alkaline Phosphatase (38-126) U/L Total Creatine Kinase (55-170) U/L CK-MB (CK-2) CK-MB (CK-2) Rel Index Troponin I (0.01-0.034) ng/mL NT-Pro-B Natriuret Pep 5880 H (<450) pg/mL Total Protein (6.3-8.2) g/dL Albumin (3.5-5.0) g/dL Globulin (1.7-4.1) g/dL Albumin/Globulin Ratio (1.0-2.8) SARS-CoV-2 (PCR) (Negative) 05/10/21 05/10/21 05/10/21 Range/Units 11:10 11:10 13:10 WBC (4.5-11.0) X10^3/uL RBC (4.5-5.9) X10^6/uL Hgb (13.5-17.5) g/dL Hct (41-53) % MCV (80-100) fL MCH (26-34) PG MCHC (30-36) % RDW (11.6-14.8) % Plt Count (150-400) X10^3/uL Neut % (Auto) (50-75) % Lymph % (Auto) (25-40) % Polk % (Auto) (3-14) % Eos % (Auto) (2-4) % Baso % (Auto) (0-2) % Neut # (Auto) (3682-5458) /uL Lymph # (Auto) (2387-8402) /uL Polk # (Auto) (0-900) /uL Eos # (Auto) (0-450) /uL Baso # (Auto) (0-100) /uL PT (10.1-12.7) SECONDS INR (0.9-1.3) Sodium 139 (137-145) mmol/L Potassium 4.7 (3.4-5.1) mmol/L Chloride 104 (98-107) mmol/L Carbon Dioxide 28 (22-32) mmol/L BUN 25 H (9-20) mg/dL Creatinine 1.79 H (0.66-1.25) mg/dL Estimated GFR 36.8 L (>60) mL/min BUN/Creatinine Ratio 14.0 (6-22) Glucose 74 L (80-110) mg/dL Lactate 1.1 (0.7-2.1) mmol/L Calcium 9.2 (8.4-10.2) mg/dL Magnesium 2.2 (1.6-2.3) mg/dL Total Bilirubin 1.5 H (0.2-1.3) mg/dL AST 27 (17-59) IU/L ALT 23 (<50) IU/L Alkaline Phosphatase 181 H (38-126) U/L Total Creatine Kinase 78 (55-170) U/L CK-MB (CK-2) TNP CK-MB (CK-2) Rel Index TNP Troponin I 0.027 (0.01-0.034) ng/mL NT-Pro-B Natriuret Pep (<450) pg/mL Total Protein 7.4 (6.3-8.2) g/dL Albumin 3.9 (3.5-5.0) g/dL Globulin 3.5 (1.7-4.1) g/dL Albumin/Globulin Ratio 1.1 (1.0-2.8) SARS-CoV-2 (PCR) Negative (Negative) 05/10/21 Range/Units 13:20 WBC (4.5-11.0) X10^3/uL RBC (4.5-5.9) X10^6/uL Hgb (13.5-17.5) g/dL Hct (41-53) % MCV (80-100) fL MCH (26-34) PG MCHC (30-36) % RDW (11.6-14.8) % Plt Count (150-400) X10^3/uL Neut % (Auto) (50-75) % Lymph % (Auto) (25-40) % Polk % (Auto) (3-14) % Eos % (Auto) (2-4) % Baso % (Auto) (0-2) % Neut # (Auto) (4268-1136) /uL Lymph # (Auto) (8126-2553) /uL Polk # (Auto) (0-900) /uL Eos # (Auto) (0-450) /uL Baso # (Auto) (0-100) /uL PT (10.1-12.7) SECONDS INR (0.9-1.3) Sodium (137-145) mmol/L Potassium (3.4-5.1) mmol/L Chloride (98-107) mmol/L Carbon Dioxide (22-32) mmol/L BUN (9-20) mg/dL Creatinine (0.66-1.25) mg/dL Estimated GFR (>60) mL/min BUN/Creatinine Ratio (6-22) Glucose (80-110) mg/dL Lactate (0.7-2.1) mmol/L Calcium (8.4-10.2) mg/dL Magnesium (1.6-2.3) mg/dL Total Bilirubin (0.2-1.3) mg/dL AST (17-59) IU/L ALT (<50) IU/L Alkaline Phosphatase (38-126) U/L Total Creatine Kinase (55-170) U/L CK-MB (CK-2) CK-MB (CK-2) Rel Index Troponin I 0.028 (0.01-0.034) ng/mL NT-Pro-B Natriuret Pep (<450) pg/mL Total Protein (6.3-8.2) g/dL Albumin (3.5-5.0) g/dL Globulin (1.7-4.1) g/dL Albumin/Globulin Ratio (1.0-2.8) SARS-CoV-2 (PCR) (Negative) Point of Care Testing Glucose POC 69 Imaging Data Chest x-ray: Radiologist's Impression: PROCEDURE:? XR CHEST 1V ? INDICATIONS:? short of breath ? TECHNIQUE:? One view of the chest was acquired.? ? COMPARISON:? [facility], CR, XR CHEST 1V, 03/21/2021, 23:58. ? FINDINGS:? ? Surgical changes and devices:? Sternal wires including fractured superior wire are unchanged. ? Lungs and pleura:? There is mild appearance of increased interstitial opacities particularly with focal areas of more prominent opacity at the bases.? There is trace blunting of the costophrenic angles. ? Mediastinum:? Mediastinal contours appear normal.? Heart size is enlarged. ? Bones and chest wall:? No suspicious bony lesions.? Overlying soft tissues appear unremarkable.? ? IMPRESSION:? Increased interstitial opacities suggestive of edema.? However, given focal areas of increased prominence in the bases, superimposed pneumonia cannot be excluded.? Trace costophrenic angle blunting is noted.? ? Dictated by: Melissa Ortega M.D. on 05/10/2021 at 11:55 ? ? ECG Data Interpretation: Rate 66 right bundle-branch block noted similar to previous EKGs no ST changes MDM Narrative Medical decision making narrative: Patient is found have elevated BNP with congestive heart failure like symptoms. He is given a dose of Lasix in the emergency department he has urinated. He has 2- troponins. Attempt at ambulation trial. Patient did walk in the ED he became very did he neck O2 remained at around 91% and heart rate in the 60s but he was obviously short of breath. He is on Eliquis is on likely be a pulmonary embolism more likely to be CHF. At this time he will need inpatient for oxygen and close monitoring of his diuresis. Dr. Dorado updated on patient's symptoms and results and accepts patient. Discharge Plan Departure Patient Disposition: Admitted as Observation Clinical Impression: Congestive heart failure Admit Date/Time: 05/10/21 15:45 Admit Provider: Stella Dorado
--- NOTE | 2021-05-10 10:19 | DI.RAD.S_ITS ---
PROCEDURE: XR CHEST 1V INDICATIONS: short of breath TECHNIQUE: One view of the chest was acquired. COMPARISON: [facility], CR, XR CHEST 1V, 03/21/2021, 23:58. FINDINGS: Surgical changes and devices: Sternal wires including fractured superior wire are unchanged. Lungs and pleura: There is mild appearance of increased interstitial opacities particularly with focal areas of more prominent opacity at the bases. There is trace blunting of the costophrenic angles. Mediastinum: Mediastinal contours appear normal. Heart size is enlarged. Bones and chest wall: No suspicious bony lesions. Overlying soft tissues appear unremarkable. IMPRESSION: Increased interstitial opacities suggestive of edema. However, given focal areas of increased prominence in the bases, superimposed pneumonia cannot be excluded. Trace costophrenic angle blunting is noted. Dictated by: Melissa Ortega M.D. on 05/10/2021 at 11:55 Approved by: Melissa Ortega M.D. on 05/10/2021 at 11:57
[2021-05-10 11:20] LABS: Add Manual Diff / Slide Review NO; Basophils Absolute Auto 100 /uL (0-100); Basophils Percent Auto 0.6 % (0-2); Eosinophils Absolute Auto 200 /uL (0-450); Eosinophils Percent Auto 2.2 % (2-4); Hematocrit 33.5 % (41-53); Hemoglobin 11.2 g/dL (13.5-17.5); Lymphocytes Absolute Auto 600 /uL (1100-4500); Lymphocytes Percent Auto 6.9 % (25-40); Mean Corpuscular HGB Conc 33.6 % (30-36); Mean Corpuscular Hemoglobin 32.4 PG (26-34); Mean Corpuscular Volume 96.5 fL (80-100); Monocytes Absolute Auto 1000 /uL (0-900); Monocytes Percent Auto 12.4 % (3-14); Neutrophils Absolute Auto 6600 /uL (1500-7000); Neutrophils Percent Auto 77.9 % (50-75); Platelet Count 250 X10^3/uL (150-400); Red Blood Cell Count 3.47 X10^6/uL (4.5-5.9); Red Cell Distribution Width 15.4 % (11.6-14.8); White Blood Cell Count 8.4 X10^3/uL (4.5-11.0)
[2021-05-10 11:27] LABS: INR 1.5 (0.9-1.3); Prothrombin Time 17.4 SECONDS (10.1-12.7)
[2021-05-10 11:31] LABS: Lactate (Lactic Acid) 1.1 mmol/L (0.7-2.1)
[2021-05-10 11:34] LABS: Alanine Aminotransferase 23 IU/L (<50); Albumin 3.9 g/dL (3.5-5.0); Albumin Globulin Ratio 1.1 (1.0-2.8); Alkaline Phosphatase 181 U/L (38-126); Aspartate Aminotransferase 27 IU/L (17-59); Bilirubin Total 1.5 mg/dL (0.2-1.3); Blood Urea Nitrogen 25 mg/dL (9-20); Calcium 9.2 mg/dL (8.4-10.2); Carbon Dioxide 28 mmol/L (22-32); Chloride 104 mmol/L (98-107); Creatine Kinase 78 U/L (55-170); Estimated Glomerular Filt Rate 36.8 mL/min (>60); Globulin 3.5 g/dL (1.7-4.1); Glucose 74 mg/dL (80-110); HEMOLYSIS < 15 (0-50); Magnesium 2.2 mg/dL (1.6-2.3); Potassium 4.7 mmol/L (3.4-5.1); Sodium 139 mmol/L (137-145); Total Protein 7.4 g/dL (6.3-8.2)
[2021-05-10 11:41] LABS: NT-proBNP (BNP-Adult 18+) 5880 pg/mL (<450)
[2021-05-10 11:45] LABS: Troponin I 0.027 ng/mL (0.01-0.034)
[2021-05-10] MEDS: FUROSEMIDE 40 MG/4 ML VIAL IV (12:04)
[2021-05-10 13:27] LABS: COVID19 -Nasal RAPID Negative (Negative)
[2021-05-10 13:55] LABS: Troponin I 0.028 ng/mL (0.01-0.034)
--- NOTE | 2021-05-10 14:23 | PC.NURSE ---
patient attempted ambulation trial. During walking, patient's 02 went down to 91 and stayed at 91 for the whole walk. After walking roughly 15 or so feet from his room, patient stated that he could not go further as he was getting tired. Breathing seemed labored. O2 was still at 91. Once back in room, patient sat on bed for a minute then got up to eliminate in the urinal. After he was finished, patient's pulse ox was placed on finger and oxygen was at 84. Patient placed on oxygen and stated to feel 'better'. Says that he 'felt like his oxygen was low while urinating'. Patient back up to 97 on oxygen. Nurse made aware of trial.
--- NOTE | 2021-05-10 16:54 | PC.NURSE ---
Addendum entered by Nell Erwin R.N. 05/10/21 18:13: Patient is resting comfortably and denies sob or discomfort at rest. He has his O2 on via nasal cannula. Original Note: 1630: Pt admitted to room 202 via stretcher from ED. Pt up to bathroom with SBA, gait steady. Pt states he fell at home recently, bruising noted to majority of L arm and upper R arm. Pt fall risk changed to high due to report of falls, education provided. Fine crackles noted in bilat lung bases. Pt SOB with any exertion, O2 via 2L NC. Denies pain, states he would like a fiber pill for consitpation. Bed low and locked, call light in reach.
--- NOTE | 2021-05-10 18:10 | P.HP_ITS ---
History of Present Illness History of Present Illness Date Patient Seen: 05/10/21 Chief complaint: Chest Pain Narrative: Patient is a 80-year-old male with a history of coronary artery disease, status post CABG x2, atrial fibrillation, type 2 diabetes, chronic kidney disease, her recent myocardial infarction 8 weeks ago who presents to the hospital for increasing shortness of breath. Patient reports for the past 10 days he has been more short of breath with activity and with at rest. He has chronic lower extremity edema, he has been unable to lay flat because of his shortness of b reath. He also reports cough, but has had no fever or chills. Patient has been vaccinated against COVID and has had his booster. He denies any chest pain palpitations, nausea vomiting or diarrhea. He was evaluated in the emergency room. Chest x-ray confirmed congestive heart failure, proBNP was elevated at 5800, patient was given IV Lasix in the emergency room but continued to be hypoxic with activity. He is admitted to the hospital for definitive treatment of acute congestive heart failure. Patient History Medical History Atrial fibrillation Diabetes Myocardial infarct Family & Social History Family History (Updated 05/10/21 @ 18:20 by Stella Dorado MD) Son Myocardial infarction Mother Myocardial infarction Social History: household members family Safety & Behavioral: Feels Safe in Current Yes Environment Been Physically Hurt or No Threatened By a Person Tobacco & Substance use: Smoking Status Former smoker alcohol intake former alcohol intake frequency 0-2 drinks per day Substance Use Type does not use Meds Home Medications and Allergies Home Medications Medication Instructions Recorded Confirmed Type metoprolol tartrate 50 mg tablet 50 mg PO BID #0 09/23/11 05/10/21 History atorvastatin 40 mg tablet (Lipitor) 80 mg PO QDAY #0 09/24/11 05/10/21 History amlodipine 10 mg tablet 10 mg PO DAILY 09/23/17 05/10/21 History chlorthalidone 25 mg tablet 25 mg PO DAILY 09/23/17 05/10/21 History furosemide 20 mg tablet 20 mg PO DAILY #30 tab 09/23/17 05/10/21 Rx insulin glargine 100 unit/mL (3 35 units SUB-Q DAILY 09/23/17 05/10/21 History mL) subcutaneous pen irbesartan 300 mg tablet 300 mg PO DAILY 09/23/17 09/23/17 History Eliquis 4 mg PO BID 11/30/20 05/10/21 History amiodarone 400 mg PO DAILY 11/30/20 05/10/21 History Allergies Allergy/AdvReac Type Severity Reaction Status Date / Time lisinopril AdvReac Mild COUGH Verified 11/30/20 07:15 Review of Systems Review of Systems Narrative: 10 point review of system negative except as above Exam Vital Signs (past 8 hours): - 05/10/21 10:45 05/10/21 11:00 05/10/21 11:30 Temperature Pulse Rate 63 62 59 L Respiratory Rate 17 Blood Pressure Pulse Oximetry 94 99 05/10/21 11:41 05/10/21 12:00 05/10/21 12:30 Temperature Pulse Rate 60 59 L 63 Respiratory Rate 18 Blood Pressure 153/67 H 147/67 H 157/72 H Pulse Oximetry 100 99 97 05/10/21 13:00 05/10/21 13:01 05/10/21 13:30 Temperature Pulse Rate 65 65 61 Respiratory Rate Blood Pressure 154/68 H 141/63 H Pulse Oximetry 96 98 98 05/10/21 14:00 05/10/21 14:01 05/10/21 14:19 Temperature Pulse Rate 59 L 59 L 64 Respiratory Rate Blood Pressure 170/72 H 146/108 H Pulse Oximetry 97 97 98 05/10/21 14:30 05/10/21 15:00 05/10/21 15:30 Temperature Pulse Rate 60 58 L 58 L Respiratory Rate Blood Pressure 146/67 H 128/61 137/64 Pulse Oximetry 98 98 98 05/10/21 16:00 05/10/21 16:20 Temperature 97.5 F L Pulse Rate 59 L 66 Respiratory Rate 22 Blood Pressure 134/63 132/54 L Pulse Oximetry 99 96 Oxygen Delivery Method Nasal Cannula Oxygen Flow Rate 2 Narrative Exam Narrative: Pleasant elderly male in no acute distress HENID Other: Normocephalic atraumatic, extraocular muscles are intact, oropharynx is clear Eyes Other: Sclerae anicteric, conjunctiva ejection Neck Other: Neck is supple without adenopathy Chest Other: Chest midline sternotomy scar well healed Resp Other: Lungs decreased breath sounds with crackles in the bases to 1[address] bilaterally Cardio Other: Irregularly irregular, normal S1-S2, 2/6 systolic ejection murmur GI Other: Abdomen obese soft and nontender, no hepatosplenomegaly Other: No Arias in place Skin Other: Patient with a the [place], dry skin on the upper extremities and lower extremities, scaling, coarse to touch Neuro Other: Neuro exam is nonfocal Extrem Other: 1+ pitting edema bilaterally Psych Other: Patient is awake alert and appropriate Objective Labs Result Diagrams: 05/10/21 11:10 05/10/21 11:10 Labs: Laboratory Results - last 24 hr 05/10/21 05/10/21 05/10/21 11:10 11:10 11:10 WBC 8.4 RBC 3.47 L Hgb 11.2 L Hct 33.5 L MCV 96.5 MCH 32.4 MCHC 33.6 RDW 15.4 H Plt Count 250 Neut % (Auto) 77.9 H Lymph % (Auto) 6.9 L [place] % (Auto) 12.4 Eos % (Auto) 2.2 Baso % (Auto) 0.6 Neut # (Auto) 6600 Lymph # (Auto) 600 L [place] # (Auto) 1000 H Eos # (Auto) 200 Baso # (Auto) 100 PT 17.4 H INR 1.5 H Sodium Potassium Chloride Carbon Dioxide BUN Creatinine Estimated GFR BUN/Creatinine Ratio Glucose Lactate Calcium Magnesium Total Bilirubin AST ALT Alkaline Phosphatase Total Creatine Kinase CK-MB (CK-2) CK-MB (CK-2) Rel Index Troponin I NT-Pro-B Natriuret Pep 5880 H Total Protein Albumin Globulin Albumin/Globulin Ratio SARS-CoV-2 (PCR) 05/10/21 05/10/21 05/10/21 11:10 11:10 13:10 WBC RBC Hgb Hct MCV MCH MCHC RDW Plt Count Neut % (Auto) Lymph % (Auto) [place] % (Auto) Eos % (Auto) Baso % (Auto) Neut # (Auto) Lymph # (Auto) [place] # (Auto) Eos # (Auto) Baso # (Auto) PT INR Sodium 139 Potassium 4.7 Chloride 104 Carbon Dioxide 28 BUN 25 H Creatinine 1.79 H Estimated GFR 36.8 L BUN/Creatinine Ratio 14.0 Glucose 74 L Lactate 1.1 Calcium 9.2 Magnesium 2.2 Total Bilirubin 1.5 H AST 27 ALT 23 Alkaline Phosphatase 181 H Total Creatine Kinase 78 CK-MB (CK-2) TNP CK-MB (CK-2) Rel Index TNP Troponin I 0.027 NT-Pro-B Natriuret Pep Total Protein 7.4 Albumin 3.9 Globulin 3.5 Albumin/Globulin Ratio 1.1 SARS-CoV-2 (PCR) Negative 05/10/21 13:20 WBC RBC Hgb Hct MCV MCH MCHC RDW Plt Count Neut % (Auto) Lymph % (Auto) [place] % (Auto) Eos % (Auto) Baso % (Auto) Neut # (Auto) Lymph # (Auto) [place] # (Auto) Eos # (Auto) Baso # (Auto) PT INR Sodium Potassium Chloride Carbon Dioxide BUN Creatinine Estimated GFR BUN/Creatinine Ratio Glucose Lactate Calcium Magnesium Total Bilirubin AST ALT Alkaline Phosphatase Total Creatine Kinase CK-MB (CK-2) CK-MB (CK-2) Rel Index Troponin I 0.028 NT-Pro-B Natriuret Pep Total Protein Albumin Globulin Albumin/Globulin Ratio SARS-CoV-2 (PCR) Assessment & Plan Assessment & Plan narrative: 80-year-old male, with a history of coronary disease, status post myocardial infarction 8 weeks ago, CABG x2, chronic atrial fibrillation, type 2 diabetes, hypertension, hyperlipidemia, admitted to the hospital for new onset congestive heart failure * Patient with acute hypoxic respiratory failure * Oxygen saturation decreased in the emergency room, patient is saturating well on 2 L * ProBNP elevated at 5808 reflective of acute decompensated heart failure * Will continue Lasix 40 IV b.i.d. * Will obtain 2D echo to evaluate LV function * Will continue metoprolol, 2. Coronary artery disease * Patient is status post CABG x2 * Recent myocardial infarction 8 weeks ago, he underwent cardiac catheterization but no stent was placed * Continue statin, Eliquis, beta-joann 3. Chronic kidney disease, stage III * Avoid nephrotoxic agent * Continue diuresis * Will follow creatinine closely 4. Type 2 diabetes * Will check hemoglobin A1c * Will continue home insulin of 35 units of Lantus daily * Will add a sliding scale in addition 5. Chronic atrial fibrillation * Rate controlled * Continue amiodarone, 400 mg daily is a high dose, will verify * Continue metoprolol 50 b.i.d. * Continue Eliquis 5 mg twice daily 6. Hypertension * Continue amlodipine 10 mg daily * Will hold chlorthalidone as we are diuresing him with Lasix * Need to verify whether the patient was on hyper start and previously as an outpatient Patient reports he is a full code will note that his record accordingly, his is his durable power of collections attorney and surrogate decision maker. I have utilized all available methods to review update confirm the patient's current medications Patient will be admitted to as an inpatient we anticipate he will be hospitalized for more than 48 hours Time Spent With Patient Critical Care time: I spent a total of [] minutes of critical care time on this patient's care today; this time is exclusive of procedural time.
[2021-05-10] MEDS: ATORVASTATIN 20 MG TABLET 80 MG PO (20:53)
[2021-05-10] MEDS: DOCUSATE 100 MG CAPSULE PO (20:53)
[2021-05-10] MEDS: METOPROLOL ER 50 MG TABLET PO (20:53)
[2021-05-10] MEDS: APIXABAN 5 MG TABLET PO (20:53)
[2021-05-10] MEDS: INSULIN GLARGINE 100 UNIT/ML 3ML PEN 35 UNIT SUBCUT (21:43)
[2021-05-10 22:10] LABS: Hemoglobin A1C% w Est Avg Glu 7.3 % (4.0-6.0)
[2021-05-11] VITALS (11 sets, daily range): BP systolic 126–137; BP diastolic 47–53; PULSE 52–60; RESP 16–20; TEMP 36.3–36.9; O2SAT 94–100
[2021-05-11] MEDS: FUROSEMIDE 40 MG/4 ML VIAL IV ×2 (00:40→12:05)
[2021-05-11 06:47] LABS: BUN Creatinine Ratio 13.4 (6-22); Blood Urea Nitrogen 27 mg/dL (9-20); Calcium 9.1 mg/dL (8.4-10.2); Carbon Dioxide 27 mmol/L (22-32); Chloride 103 mmol/L (98-107); Estimated Glomerular Filt Rate 32.2 mL/min (>60); HEMOLYSIS < 15 (0-50); Potassium 3.8 mmol/L (3.4-5.1); Sodium 137 mmol/L (137-145)
[2021-05-11 06:57] LABS: Glucose 44 mg/dL (80-110)
--- NOTE | 2021-05-11 07:20 | PC.NURSE ---
Alerted by lab to glucose of 43. Patient asymptomatic. Gave patient orange juice and a cookie, rechecked blood sugar 20 minutes later, at 93. Day shift nurse informed. Patient now waiting eagerly, but patiently, for breakfast.
--- NOTE | 2021-05-11 08:45 | CM.DANOTE ---
DCP: Case received, EMR reviewed and met with patient. Introduced self and role. Was able to obtain information regarding patient's baseline activity status prior to hospitalization. DCP assessment completed with information currently available. Patient is a 80 year old male who admitted yesterday afternoon to the care of the hospitalist team. PCP: Dr. Card. Payer: confirmed: Medicare/[employer]. Patient came to the hospital via ambulance secondary to having increased shortness of breath. Patient has history of NSTEMI in February of 2021, CHF, as well. Patient also has a-fib, is on blood thinners, and insulin dependent diabetic. Patient is not on home oxygen. Patient holds diagnosis of acute congestive heart failure. Met with patient in his room. He was sitting up in bed having breakfast, oxygen in place. He is alert and oriented. He resides with his spouse, Meghna, here in [place]. At his baseline, he is independent. P: DCP to continue to follow for any needs. It is noted that patient has P.T. orders, will see how he does with therapy. Annmarie Royal RN/Interpretive Naturalist Discharge Planning/Care Management CM Discharge Assessment Start: 05/11/21 08:43 Freq: Status: Active Protocol: Document 05/11/21 08:43 (Rec: 05/11/21 08:44 [id number]) Discharge Planning Assessment Assigned Vp Corporate Development Annmarie Royal RN/Interpretive Naturalist Advance Directives? Yes Advance Directives on File No History Provided By Patient,Medical Record Prior Living Arrangements House Household Members family Type of transporation used prior to Drives own vehicle admit Independent with ADL's Yes Is patient alert and oriented? Yes Caregiver for Another No Barriers to Discharge No Discharge Plan Home Transportation Arrangement Spouse Referrals Initiated None needed Whiteboard Updated in Patient Room with Yes name and ext. # of [employer]p [employer] Review Status In Process Next Review Type Continued Stay Review
[2021-05-11] MEDS: AMIODARONE 200 MG TABLET 400 MG PO (09:51)
[2021-05-11] MEDS: DOCUSATE 100 MG CAPSULE PO ×2 (09:52→20:35)
[2021-05-11] MEDS: METOPROLOL ER 50 MG TABLET PO ×2 (09:52→20:35)
[2021-05-11] MEDS: APIXABAN 5 MG TABLET PO ×2 (09:52→20:35)
[2021-05-11] MEDS: AMLODIPINE 5 MG TABLET 10 MG PO (09:53)
--- NOTE | 2021-05-11 10:30 | PT.IIE ---
Medical History (Last Reviewed 05/10/21 @ 18:15 by Stella Dorado MD) Atrial fibrillation Diabetes Myocardial infarct Physical Therapy Inpatient Evaluation/Re-Eval M1 PT/OT-IP Prior Functional Status Start: 05/11/21 12:51 Freq: NEEDED Status: Active Protocol: Document 05/11/21 10:30 AB (Rec: 05/11/21 13:09 AB [email or web address]) Medical Review Prior Functional Status Medical History Reviewed Yes Communication able to make needs known Mobility and Gait pt tated that he is modified independent with all mobilities and ambulation without AD; h/o falls Social History Household Members spouse Living Arrangements House Number of Floors (Floors) Two Floors Number of Stairs To Enter/Railing? 15 steps B rails to bedroom level no steps to enter from the garage 2 steps without rails to enter from the front Home Environment Standard Height Toilet,Tub/ Shower Home Equipment Four Wheel Walker,Quad Cane, Shower Seat with Backrest,Hand Held Shower,Grab Bars In Shower Additional Social History Comment pt sleeps on a recliner at home has an adjustable bed pt stated that his spouse Deya will not be able to assist him. stated that they are trying to get her daugther to stay with them but is not definite at this time. daughter lives in [place] M2 PT-IP Current Condition Start: 05/11/21 12:51 Freq: NEEDED Status: Active Protocol: Document 05/11/21 10:30 AB (Rec: 05/11/21 13:09 AB [email or web address]) Physical Therapy Current Condition Current Condition Evaluation Date 05/11/21 Treatment Diagnosis CHF; difficulty in walking M3 PT-IP Subjective Start: 05/11/21 12:51 Freq: NEEDED Status: Active Protocol: Document 05/11/21 10:30 AB (Rec: 05/11/21 13:09 AB [email or web address]) Subjective Physical Therapy Visit Type Type Initial Evaluation Visit Start Time 10:30 Visit Stop Time 11:05 Total Visit Minutes 35 Number of BALLISTICS PROFESSOR Visits 0 Physical Therapy Visit Comments Patient Comments agreeable to do PT Therapy Pain Assessment Pain Present Pain Present Denied Pain M4 PT-IP Mobility and Gait Start: 05/11/21 12:51 Freq: NEEDED Status: Active Protocol: Document 05/11/21 10:30 AB (Rec: 05/11/21 13:09 AB [email or web address]) PT-Bed Mobility Assessment Supine to Sit Supine to Sit Standby Assistance Sit to Supine Sit to Supine Standby Assistance PT-Transfer Assessment Sit to and From Stand Sit to and from Stand Contact Guard Assistance, Minimal Assistance,1 Person Assistance,Use of Upper Extremities Equipment Transfer Assistive Device Gait Belt,Front Wheeled Walker Orthotic/Prosthetic Devices or Brace: No Transfers Transfer Destination Chair Transfer Technique ambulated Transfer Ability Level of Assist Contact Guard Assistance, Minimal Assistance,1 Person Assistance,Use of Upper Extremities Comments Mobility Comments BP in supine: 133/49 O2 sat with 1/2L O2: 92% pt completed supine to sit SBA. pt sat on EOB. BP checked: 132/50 O2 sat decreased to 84 %. cued for deep breathing and O2 sat increased 93%. asked nurse if O2 can be increased and stated that O2 can be increased to 2 L. pt completed sit to stand CGA to min A and ambulated ~ 12 ft using FWW CGA to min A. O2 sat decreased to 80-83 % with 1/2 L O2. cued for deep breathing and O2 sat increased to 90% ~ 30 sec. pt agreed to ambulate again. O2 increased to 2L. pt completed ambulation CGA to min A using FWW ~ 35 ft. O2 sat checked: 88%. pt sat on chair. pt requested to go back to bed and completed transfer to bed CGA using FWW. completed sit to supine SBA. positioned pt in bed. call light and table placed within reach. informed nurse regarding O2 sat. Gait Assessment Gait Gait Assistance Required: Contact Guard Assist,Minimum Assistance Distance (Feet) 35 Able to Maintain Weight Bearing Status Yes During Gait Assistive Devices Assistive Device Gait Belt,Front Wheeled Walker Orthotic/Prosthetic Devices or Brace: No Gait Deviations General Gait Pattern Decreased Stride Length, Decreased Feet Clearance,Step- to Gait Factors Limiting Gait Function Factors Limiting Gait Function Decreased Activity Tolerance, Decreased Strength,Poor Balance,Poor Safety Awareness, Respiratory Distress Comments Gait Comments pls refer to mobility section for details PT-Balance Assessment Sitting Balance and Reactions Static Sitting Balance Ability Good Dynamic Sitting Balance Ability Good Standing Balance and Reactions Static Standing Balance Ability Fair Dynamic Standing Balance Ability Fair Device Used FWW M5 PT-IP Objective Assessments Start: 05/11/21 12:51 Freq: NEEDED Status: Active Protocol: Document 05/11/21 10:30 AB (Rec: 05/11/21 13:09 AB [email or web address]) Orientation Orientation/Cognition Level of Alertness Alert Orientation Name,Place,Situation Safety Awareness Decreased Safety Awareness Memory Description No Deficits Noted Gross Range of Motion Lower Extremity ROM Assessment Within Functional Limits Strength Lower Extremity Strength Hip 4-/5 Knee 4-/5 Muscle Tone Muscle Tone WNL Yes M6 PT-IP Treatment Start: 05/11/21 12:51 Freq: NEEDED Status: Active Protocol: Document 05/11/21 10:30 AB (Rec: 05/11/21 13:09 AB [email or web address]) Physical Therapy Treatment Education Education Provided Safety M7 PT-IP Assessment and Plan Start: 05/11/21 12:51 Freq: NEEDED Status: Active Protocol: Document 05/11/21 10:30 AB (Rec: 05/11/21 13:09 AB [email or web address]) PT Summary Assessment and Plan Potential Rehabilitation Potential Good Status of Condition at Evaluation Evolving Summary Impairments Pain,ROM,Strength,Balance, Coordination,Sensation,Tone, Cognition,Bed Mobility, Transfers,Gait,Activity Tolerance Assessment Summary pt requiring CGA to min A with mobility and had decrease activity tolerance with decrease O2 sat with ambulation. pt lives with spouse but spouse will not be able to assist pt at home. d /c plan depending on progress but at this time, may require SNF rehab to improve overall strength and mobility independence. Goals Bed Mobility Goal Independent Transfer Goal Independent,Front Wheeled Walker Gait Goal Independent,Front Wheel Walker Gait Distance 200 Other Goals improve ambulation using 4WW SBA 250 ft up/down 15 steps B rails SBA Days to Meet Goals 10 Frequency of Treatment Frequency Of Treatment Once a Day Treatment Plan Physical Therapy Treatment Plan Bed Mobility Training,Transfer Training,Gait Training, Therapeutic Exercise,Balance Retraining,Discharge Planning, Hot or Cold Pack,Neuromuscular Re-ed,Coordination Retraining Precautions Other Precautions O2 sat; falls Recommendations To Nursing Amount of Assist Needed 1 Person Assist Discharge Recommendations PT Discharge Recommendations Home with / Assist Available,Home Health,SNF Rehab,Home vs SNF Equipment Needed for Home Before FWW if not safe with 4WW Discharge Transportation Needs at Discharge Private Vehicle,Wheelchair/ Cabulance
[2021-05-11] MEDS: INSULIN LISPRO 100 UNIT/ML 3ML VIAL SUBCUT (11:51)
--- NOTE | 2021-05-11 15:01 | P.PN_ITS ---
Subjective Subjective Date Patient Seen: 05/11/21 Interval history: The patient is a 80-year-old male admitted to the hospital with acute congestive heart failure, he diuresed nicely with IV Lasix, he had a small bump in his creatinine. He continues to be hypoxic on room air, desaturates to 86-88 % on room air. Despite that he feels somewhat better today Exam Vital Signs (past 8 hours): - 05/11/21 08:24 05/11/21 09:52 05/11/21 11:26 Temperature 97.5 F L Pulse Rate 60 60 57 L Respiratory Rate 18 Blood Pressure 134/53 L 134/53 L 126/47 L Pulse Oximetry 100 05/11/21 11:30 05/11/21 12:00 Temperature 97.9 F Pulse Rate 57 L Respiratory Rate 20 Blood Pressure 126/47 L Pulse Oximetry 95 94 Oxygen Delivery Method Nasal Cannula Oxygen Flow Rate 1 Narrative Exam Narrative: Pleasant male lying comfortably in no obvious distress Resp Other: Lungs: Decreased breath sounds but clear to auscultation Cardio Other: Cardiac exam: Regular rate and rhythm normal S1-S2 with a 2/6 systolic ejection murmur GI Other: Abdomen: Soft and nontender Extrem Other: Extremities: Trace edema Objective Labs Result Diagrams: 05/10/21 11:10 05/11/21 06:20 Labs: Laboratory Results - last 24 hr 05/10/21 05/11/21 11:05 06:20 Sodium 137 Potassium 3.8 Chloride 103 Carbon Dioxide 27 BUN 27 H Creatinine 2.01 H Estimated GFR 32.2 L BUN/Creatinine Ratio 13.4 Glucose 44 L* Hemoglobin A1c 7.3 H Calcium 9.1 PFSH Medical History Atrial fibrillation Diabetes Myocardial infarct Family History (Updated 05/10/21 @ 18:21 by Stella Dorado MD) Son Myocardial infarction Mother Myocardial infarction Social History household members: spouse Smoking Status: Former smoker alcohol intake: former Assessment & Plan Assessment & Plan narrative: 10-year-old male, with a history of coronary disease, status post myocardial infarction 8 weeks ago, CABG x2, chronic atrial fibrillation, type 2 diabetes, hypertension, hyperlipidemia, admitted to the hospital for new onset congestive heart failure * Patient with acute hypoxic respiratory failure * Oxygen saturation decreased in the emergency room, patient is saturating well on 2 L * ProBNP elevated at 5808 reflective of acute decompensated heart failure * Will continue Lasix 40 IV b.i.d. * Will obtain 2D echo to evaluate LV function, recent echo reviewed. NL LVFXN, EF 55-60% * Will continue metoprolol, * recheck BMP in am * Patient may require oxygen at discharge 2. Coronary artery disease * Patient is status post CABG x2 * Recent myocardial infarction 8 weeks ago, he underwent cardiac catheterization but no stent was placed * Continue statin, Eliquis, beta-joann 3. Chronic kidney disease, stage III * Avoid nephrotoxic agent * Continue diuresis * Will follow creatinine closely 4. Type 2 diabetes * Will check hemoglobin A1c * Will continue home insulin of 35 units of Lantus daily * Will add a sliding scale in addition 5. Chronic atrial fibrillation * Rate controlled * Continue amiodarone, 400 mg daily is a high dose, will verify * Continue metoprolol 50 b.i.d. * Continue Eliquis 5 mg twice daily 6. Hypertension * Continue amlodipine 10 mg daily * Will hold chlorthalidone as we are diuresing him with Lasix * Need to verify whether the patient was on hyper start and previously as an outpatient Time Spent With Patient Critical Care time: I spent a total of [] minutes of critical care time on this patient's care today; this time is exclusive of procedural time.
[2021-05-11] MEDS: INSULIN GLARGINE 100 UNIT/ML 3ML PEN 35 UNIT SUBCUT (20:31)
[2021-05-11] MEDS: ATORVASTATIN 20 MG TABLET 80 MG PO (20:35)
[2021-05-12] VITALS (9 sets, daily range): BP systolic 125–137; BP diastolic 43–87; PULSE 50–57; RESP 18–20; TEMP 36.1–37.1; O2SAT 95–97
[2021-05-12 06:27] LABS: BUN Creatinine Ratio 16.8 (6-22); Blood Urea Nitrogen 33 mg/dL (9-20); Calcium 8.7 mg/dL (8.4-10.2); Carbon Dioxide 29 mmol/L (22-32); Chloride 102 mmol/L (98-107); Estimated Glomerular Filt Rate 33.2 mL/min (>60); Glucose 105 mg/dL (80-110); HEMOLYSIS < 15 (0-50); Potassium 4.3 mmol/L (3.4-5.1); Sodium 137 mmol/L (137-145)
[2021-05-12 09:47] LABS: NT-proBNP (BNP-Adult 18+) 4810 pg/mL (<450)
[2021-05-12] MEDS: AMIODARONE 200 MG TABLET 400 MG PO (09:50)
[2021-05-12] MEDS: AMLODIPINE 5 MG TABLET 10 MG PO (09:51)
[2021-05-12] MEDS: FUROSEMIDE 40 MG/4 ML VIAL IV ×2 (09:52→12:15)
[2021-05-12] MEDS: DOCUSATE 100 MG CAPSULE PO ×2 (09:52→20:55)
[2021-05-12] MEDS: APIXABAN 5 MG TABLET PO ×2 (09:52→20:54)
--- NOTE | 2021-05-12 10:44 | PC.NURSE ---
Pt A&Ox2 forgetful. VSS, afebrile on RA. He is evaluated by this a.m. and started on a heart healthy diet. He tolerates this well and denies any pain or s/sx of bleeding. He is cleared for discharge home this a.m. He notifies his and dresses independently. and patient verbalize understanding of discharge instructions, medications (to fruit picker machine operator at [facility]) activity, diet and follow up recommendations. He is escorted by wheel chair to private vehicle with his via wheel chair with the DRIVER [employer] and all of his belongings including his CPAP at 1045 this a.m.
--- NOTE | 2021-05-12 11:20 | PT.IPTN ---
Current Diagnoses Heart failure, unspecified (05/10/21) Physical Therapy Treatment Note M2 PT-IP Current Condition Start: 05/11/21 12:51 Freq: NEEDED Status: Active Protocol: Document 05/11/21 10:30 AB (Rec: 05/11/21 13:09 AB [id number]) Physical Therapy Current Condition Current Condition Evaluation Date 05/11/21 Treatment Diagnosis CHF; difficulty in walking M3 PT-IP Subjective Start: 05/11/21 12:51 Freq: NEEDED Status: Active Protocol: Document 05/12/21 11:05 KS (Rec: 05/12/21 12:32 KS [id number]) Subjective Physical Therapy Visit Type Type Treatment Note Visit Start Time 11:05 Visit Stop Time 11:20 Total Visit Minutes 15 Number of FULLER BRUSH WORKER Visits 1 Physical Therapy Visit Comments Patient Comments agreeable to do PT M4 PT-IP Mobility and Gait Start: 05/11/21 12:51 Freq: NEEDED Status: Active Protocol: Document 05/12/21 11:05 KS (Rec: 05/12/21 12:32 KS [id number]) PT-Bed Mobility Assessment Supine to Sit Supine to Sit Standby Assistance Sit to Supine Sit to Supine Standby Assistance Scooting Scooting to Edge of Bed Standby Assistance PT-Transfer Assessment Sit to and From Stand Sit to and from Stand Contact Guard Assistance,1 Person Assistance,Use of Upper Extremities Equipment Transfer Assistive Device Gait Belt Orthotic/Prosthetic Devices or Brace: No Transfers Transfer Destination Bed Transfer Technique ambulated Transfer Ability Level of Assist Standby Assistance,Contact Guard Assistance,1 Person Assistance,Use of Upper Extremities Comments Mobility Comments Pt in bed and RT in room upon arrival. Pt agreeable to ambulation, O2 95 on 2L resting, SBA for sup<>sit and scooting EOB, CGA for sit<> stand. Pt prefers to not use FWW. Pt ambulated ~80 ft around room w/ CGA and RT minitoring O2, pt desat to 86% and RT adjusted and pt eventually using 6L O2 for ambulation. He took 1x seated rest break during ambulation. He then performed 1x10 bilateral ankle pumps, quad sets, glute sets, and heel slides. Pt left in bed w/ all needs in reach and alarm and SCDs on. Gait Assessment Gait Gait Assistance Required: Contact Guard Assist Distance (Feet) 80 Able to Maintain Weight Bearing Status Yes During Gait Assistive Devices Assistive Device Gait Belt Orthotic/Prosthetic Devices or Brace: No Gait Deviations General Gait Pattern Decreased Stride Length, Decreased Feet Clearance, Narrow Based Gait Factors Limiting Gait Function Factors Limiting Gait Function Decreased Activity Tolerance, Decreased Strength,Poor Balance,Poor Safety Awareness, Respiratory Distress Comments Gait Comments pls refer to mobility section for details PT-Balance Assessment Sitting Balance and Reactions Static Sitting Balance Ability Good Dynamic Sitting Balance Ability Good Standing Balance and Reactions Static Standing Balance Ability Fair Dynamic Standing Balance Ability Fair Device Used No AD M5 PT-IP Objective Assessments Start: 05/11/21 12:51 Freq: NEEDED Status: Active Protocol: Document 05/11/21 10:30 AB (Rec: 05/11/21 13:09 AB [id number]) Orientation Orientation/Cognition Level of Alertness Alert Orientation Name,Place,Situation Safety Awareness Decreased Safety Awareness Memory Description No Deficits Noted Gross Range of Motion Lower Extremity ROM Assessment Within Functional Limits Strength Lower Extremity Strength Hip 4-/5 Knee 4-/5 Muscle Tone Muscle Tone WNL Yes M6 PT-IP Treatment Start: 05/11/21 12:51 Freq: NEEDED Status: Active Protocol: Document 05/12/21 11:05 KS (Rec: 05/12/21 12:32 KS [id number]) Physical Therapy Treatment Exercises Exercises Ankle Pumps,Gluteal Sets,Quad Sets,Heel Slides Education Education Provided Safety M7 PT-IP Assessment and Plan Start: 05/11/21 12:51 Freq: NEEDED Status: Active Protocol: Document 05/12/21 11:05 KS (Rec: 05/12/21 12:32 KS [id number]) PT Summary Assessment and Plan Potential Rehabilitation Potential Good Status of Condition at Evaluation Evolving Summary Impairments Pain,ROM,Strength,Balance, Coordination,Sensation,Tone, Cognition,Bed Mobility, Transfers,Gait,Activity Tolerance Assessment Summary Pt able to ambulate ~80 ft w/o AD CGA w/ 6L O2 adjusted by RT dring ambulation. Pt desat to mid to high 80s prior to O2 adjustment. Able to complete LE exercises to promote blood flow and strengthening on 2L in bed. D/c plan depending on pt progress. Goals Bed Mobility Goal Independent Transfer Goal Independent,Front Wheeled Walker Gait Goal Independent,Front Wheel Walker Gait Distance 200 Other Goals improve ambulation using 4WW SBA 250 ft up/down 15 steps B rails SBA Days to Meet Goals 10 Frequency of Treatment Frequency Of Treatment Once a Day Treatment Plan Physical Therapy Treatment Plan Bed Mobility Training,Transfer Training,Gait Training, Therapeutic Exercise,Balance Retraining,Discharge Planning, Hot or Cold Pack,Neuromuscular Re-ed,Coordination Retraining Other Recommendations and Next Treatment Trial ambulation w/ 4WW if pt Focus agreeable for energy conservation and stability. Precautions Other Precautions O2 sat; falls Recommendations To Nursing Amount of Assist Needed 1 Person Assist Discharge Recommendations PT Discharge Recommendations Home with 18/09 Assist Available,Home Health,SNF Rehab,Home vs SNF Equipment Needed for Home Before FWW if not safe with 4WW Discharge Transportation Needs at Discharge Private Vehicle,Wheelchair/ Cabulance
--- NOTE | 2021-05-12 12:04 | P.PN_ITS ---
Subjective Subjective Date Patient Seen: 05/12/21 Interval history: Patient is a 80-year-old male admitted to the hospital with acute hypoxic respiratory failure secondary to congestive heart failure with preserved ejection fraction. He has diuresed nicely with Lasix for 40 IV twice daily. Despite that he continues to be hypoxic. Patient requires 2 L at rest, and up to 6 L with ambulation. Exam Vital Signs (past 8 hours): - 05/12/21 05:59 05/12/21 09:00 05/12/21 09:54 Temperature 97.6 F Pulse Rate 50 L 55 L Respiratory Rate 18 Blood Pressure 129/56 L Pulse Oximetry 97 97 Oxygen Delivery Method Nasal Cannula Oxygen Flow Rate 2 Narrative Exam Narrative: Elderly male lying in bed Resp Other: Lungs: Decreased breath sounds no crackles rhonchi or wheezes Cardio Other: Cardiac exam: Regular rate and rhythm normal S1-S2 GI Other: Abdomen soft nontender nondistended Skin Other: Dry scaly skin of both arms and legs Extrem Other: Extremity no edema Objective Labs Result Diagrams: 05/10/21 11:10 05/12/21 05:35 Labs: Laboratory Results - last 24 hr 05/12/21 05/12/21 05:35 05:35 Sodium 137 Potassium 4.3 Chloride 102 Carbon Dioxide 29 BUN 33 H Creatinine 1.96 H Estimated GFR 33.2 L BUN/Creatinine Ratio 16.8 Glucose 105 Calcium 8.7 NT-Pro-B Natriuret Pep 4810 H [facility] Medical History (Updated 05/12/21 @ 09:08 by Stella Dorado MD) Atrial fibrillation Congestive heart failure Diabetes Myocardial infarct Family History (Updated 05/10/21 @ 18:21 by Stella Dorado MD) Son Myocardial infarction Mother Myocardial infarction Social History household members: spouse Smoking Status: Former smoker alcohol intake: former Assessment & Plan Assessment & Plan narrative: 80-year-old male, with a history of coronary disease, status post myocardial infarction 8 weeks ago, CABG x2, chronic atrial fibrillation, type 2 diabetes, hypertension, hyperlipidemia, admitted to the hospital for new onset congestive heart failure * Patient with acute hypoxic respiratory failure * Oxygen saturation decreased in the emergency room, patient is saturating well on 2 L * Patient's oxygen saturation 86% on room air, required 2 L at rest, and 6 L with ambulation * ProBNP elevated at 5808 reflective of acute decompensated heart failure * Will continue Lasix 40 IV b.i.d., Lasix decreased yesterday given bump in creatinine, given his persistent hypoxemia will increase Lasix back to 40 IV b.i.d. * Will check D-dimer, if elevated V/Q scan to rule out PE * Will obtain 2D echo to evaluate LV function, recent echo reviewed. NL LVFXN, EF 55-60% * Will continue metoprolol, * recheck BMP in am * Patient may require oxygen at discharge 2. Coronary artery disease * Patient is status post CABG x2 * Recent myocardial infarction 8 weeks ago, he underwent cardiac catheterization but no stent was placed * Continue statin, Eliquis, beta-joann 3. Chronic kidney disease, stage III * Avoid nephrotoxic agent * Continue diuresis * Will follow creatinine closely 4. Type 2 diabetes * Will check hemoglobin A1c * Will continue home insulin of 35 units of Lantus daily * Will add a sliding scale in addition 5. Chronic atrial fibrillation * Rate controlled * Continue amiodarone, 400 mg daily is a high dose, will verify * Continue metoprolol 50 b.i.d. * Continue Eliquis 5 mg twice daily 6. Hypertension * Continue amlodipine 10 mg daily * Will hold chlorthalidone as we are diuresing him with Lasix * Need to verify whether the patient was on hyper start and previously as an outpatient Time Spent With Patient Critical Care time: I spent a total of [] minutes of critical care time on this patient's care today; this time is exclusive of procedural time.
[2021-05-12] MEDS: INSULIN LISPRO 100 UNIT/ML 3ML VIAL SUBCUT ×3 (12:12→21:26)
--- NOTE | 2021-05-12 12:13 | DI.ECHO.S_ITS ---
[place] +---------+ Hospital +---------+ : : [address] [place] [address] : : : : [id number] : : : : Phone: [phone] +---------+ Echocardiogram Report + + :Name: PRISCILA ORTIZ Study Date: 05/12/2021 Height: 73 in : :[facility] ReadingLocation: Weight: 257 lb : : Gender: Male BSA: 2.4 m2 : :: 1940 Age: 80 yrs BP: 129/56 mmHg: :Reason For Study: EVALUATE LV FUNCTION : :Ordering Physician: LUIS F, : :JESÚS Performed By: Lisette Cheng : :Referring: JESÚS KERNS : + + Interpretation Summary This is a limited echocardiogram performed for assessment of left ventricular wall motion. Given historically technically difficult study Definity echo contrast was used. Normal sinus rhythm with heart rate 55-62 bpm during the exam. Mildly dilated left ventricle with mild concentric left ventricular hypertrophy. There is mid inferior, basal inferior lateral and mid inferior lateral akinesis. Otherwise normal wall motion. Ejection fraction is estimated at 55-60%. Compared to prior complete echocardiogram March 24, 2021 no changes have occurred. Procedure: A two-dimensional transthoracic echocardiogram with color flow and Doppler was performed in limited views only to assess LV function.. The study quality was technically adequate. A contrast injection of Definity was performed to improve assessment of LV function. Comparison is made with the echocardiogram of 03/24/2021. The patient was in sinus bradycardia with heart rates between 55-62 bpm during the exam. Left Ventricle: The left ventricle is mildly dilated. The estimated left ventricular end diastolic volume is 196 ml. Left ventricular wall thickness is mildly increased. The ejection fraction is estimated to be 55-60%. Right Ventricle: The right ventricle is mildly dilated. The right ventricular systolic function is normal. Atria: The left atrium is severely dilated. Pericardium/ Pleura There is no pericardial effusion. There is no pleural effusion. MMode/2D Measurements & Calculations LVIDd: 6.1 cm LA A2 area: 36.7 cm2 LVIDs: 4.4 cm LA A4 area: 34.6 cm2 FS: 27.1 % LA length (vol): 7.9 cm IVSd: 1.1 cm LA vol: 135.6 ml LVPWd: 1.0 cm LA vol index: 56.6 ml/m2 LV castro. diameter/BSA (cm/m^2): 2.5 LV sys. diameter/BSA (cm/m^2): 1.9 RA long axis: 6.1 cm RVD1 (basal): 4.4 cm RA area: 21.3 cm2 TAPSE: 2.3 cm RA vol: 62.9 ml RA : 26.3 ml/m2 Electronically signed by: Claudia Card M.D. on Reading Physician:05/12/2021 05:48 PM
[2021-05-12] MEDS: predniSONE 20 MG TABLET 40 MG PO (12:29)
[2021-05-12 13:13] LABS: D Dimer 385 ng/mL (<230)
[2021-05-12] MEDS: ATORVASTATIN 20 MG TABLET 80 MG PO (20:54)
[2021-05-12] MEDS: INSULIN GLARGINE 100 UNIT/ML 3ML PEN 35 UNIT SUBCUT (21:24)
[2021-05-13 00:24] VITALS: BP 134/55; PULSE 59; RESP 18; TEMP 36.2; O2SAT 97
[2021-05-13 05:05] VITALS: BP 132/59; PULSE 59; RESP 18; TEMP 36.4; O2SAT 98
--- NOTE | 2021-05-13 05:17 | PC.NURSE ---
Shift Note: Patient was alert and orientedx3, with O2 sat at 94% by nasal cannula at 2lpm, dyspneic on exertion. Afebrile, vital signs within acceptable limits. Denies any pain/ discomfort. Patient was able to get up from bed with one person assist, safety precautions maintained.
--- NOTE | 2021-05-13 08:00 | PT.IPTN ---
Current Diagnoses Heart failure, unspecified (05/10/21) Physical Therapy Treatment Note M2 PT-IP Current Condition Start: 05/11/21 12:51 Freq: NEEDED Status: Active Protocol: Document 05/13/21 07:32 SP (Rec: 05/13/21 11:55 SP [id number]) Physical Therapy Current Condition Current Condition Evaluation Date 05/11/21 Treatment Diagnosis CHF; difficulty in walking M3 PT-IP Subjective Start: 05/11/21 12:51 Freq: NEEDED Status: Active Protocol: Document 05/13/21 07:32 SP (Rec: 05/13/21 11:55 SP [id number]) Subjective Physical Therapy Visit Type Type Treatment Note Visit Start Time 07:32 Visit Stop Time 08:00 Total Visit Minutes 28 Notes Vitals taken during tx: seated: BP 128/55 HR 63, SaO2 97% on 3L With activity/gait: SaO2 94-96 % on 3L Stair mgt: 87% on 3L, wtih breath education, stand rest breaks and increased to 4L SaO2 returned to 91-92%. Decreased to 3L way back to room maintained mid 90s on 3L. Number of POWERHOUSE TENDER Visits 1 Physical Therapy Visit Comments Patient Comments agreeable to do PT Patient Goals return home with family to assist him. Therapy Pain Assessment Pain Present Pain Present Denied Pain M4 PT-IP Mobility and Gait Start: 05/11/21 12:51 Freq: NEEDED Status: Active Protocol: Document 05/13/21 07:32 SP (Rec: 05/13/21 11:55 SP [id number]) PT-Bed Mobility Assessment Supine to Sit Supine to Sit Standby Assistance PT-Transfer Assessment Sit to and From Stand Sit to and from Stand Standby Assistance,Use of Upper Extremities Equipment Transfer Assistive Device Gait Belt Orthotic/Prosthetic Devices or Brace: No Transfers Transfer Destination Chair Transfer Technique ambulated managing self O2 tank and tubing Transfer Ability Level of Assist Standby Assistance,Contact Guard Assistance,Use of Upper Extremities Comments Mobility Comments Pt supine in bed when arrived. completed supine>sit, sit> stand sBA, walked to bathroom SBA 8 ft w/ gait belt donned and self manage O2 tubing on 3L, voided self mgt with urinal in standing stable no deviation/ or LOB. Gait to sink washed hands, SaO2 94%. POWERHOUSE TENDER educated how to change O2 tubing to portable tank. Progressed gait into hallway stairs approx 16 ft out/ back room managed portable O2 tank self, completed ascend/descend 15 stairs B HR cGA-close SBA, required 2 brief stand rests wtih education for breath recovery 88% on 3L -91% on 4L recovery within 10 sec. Pt returned to room managed O2 tank close SBA- CGA, ed pull tank behind him for ease, improved driving skills and energy conservation. Pt returned to room educate how to reconnect O2 tubing to room as would do with concentrator at home. Dr Dorado arrived, provided progress in tx and use of O2 required 3-4L during activity, SBA for safety at this time and acquire pulse oximeter for self awareness safety values for proper O2 consumption. Pt is ok to return home when medically stable. REcommend HHPT for increase strength and functional independence. Gait Assessment Gait Gait Assistance Required: Contact Guard Assist Distance (Feet) 160 Able to Maintain Weight Bearing Status Yes During Gait Assistive Devices Assistive Device Gait Belt Orthotic/Prosthetic Devices or Brace: No Gait Deviations General Gait Pattern Antalgic,Decreased Stride Length Factors Limiting Gait Function Factors Limiting Gait Function Decreased Activity Tolerance, Decreased Strength,Respiratory Distress Comments Gait Comments see mobility comments. Stair Climbing Assessment Evaluation Level of Assist On Stairs Standby Assistance,Contact Guard Assistance Devices Stair Climbing Assistive Devices Left Railing,Right Railing Technique/Endurance Stair Climbing Direction Ascend and Descend Stair Climbing Technique Step Over Step,Step to Step Number of Steps Climbed 3 Stair Climbing Set # Repetitions (reps) 5 Comments Stair Climbing Comments step over step ascend, step to descent B HR and stop stand rests ever 2 sets stairs with ed breath, increased O2 3>4L for saturation recovery only needed during stair mgt. PT-Balance Assessment Sitting Balance and Reactions Static Sitting Balance Ability Normal Dynamic Sitting Balance Ability Good Standing Balance and Reactions Static Standing Balance Ability Good Dynamic Standing Balance Ability Fair Device Used No AD M5 PT-IP Objective Assessments Start: 05/11/21 12:51 Freq: NEEDED Status: Active Protocol: Document 05/11/21 10:30 AB (Rec: 05/11/21 13:09 AB [id number]) Orientation Orientation/Cognition Level of Alertness Alert Orientation Name,Place,Situation Safety Awareness Decreased Safety Awareness Memory Description No Deficits Noted Gross Range of Motion Lower Extremity ROM Assessment Within Functional Limits Strength Lower Extremity Strength Hip 4-/5 Knee 4-/5 Muscle Tone Muscle Tone WNL Yes M6 PT-IP Treatment Start: 05/11/21 12:51 Freq: NEEDED Status: Active Protocol: Document 05/13/21 07:32 SP (Rec: 05/13/21 11:55 SP [id number]) Physical Therapy Treatment Education Education Provided Safety M7 PT-IP Assessment and Plan Start: 05/11/21 12:51 Freq: NEEDED Status: Active Protocol: Document 05/13/21 07:32 SP (Rec: 05/13/21 11:55 SP [id number]) PT Summary Assessment and Plan Potential Rehabilitation Potential Good Status of Condition at Evaluation Evolving Summary Impairments Pain,ROM,Strength,Balance, Coordination,Sensation,Tone, Cognition,Bed Mobility, Transfers,Gait,Activity Tolerance Progress Towards Goals Progressing Toward Goals,Slow Progress due to Medical Issues ,Slow Progress due to Activity Tolerance Assessment Summary Pt improved in gait and stair mgt cG- sBA B HR, no AD gait 160 ft/ tranfers sBA, managed own O2 tank and tubing post education, therapist and self check with SaO2 increased O2 3 >4L during stair mgt. Pt will need O2 for home for safety mobility and recommended acquire pulse oximeter for self check safety with mobility. Suggested use of SPC /4WW home community needed for energy conservation and safe SaO2. Pt ok return home with family to assist him when medically cleared. POWERHOUSE TENDER notified nursing, LOCATION WORKER and Dr Dorado progress in tx. Goals Bed Mobility Goal Independent Transfer Goal Independent,Front Wheeled Walker Gait Goal Independent,Front Wheel Walker Gait Distance 200 Other Goals improve ambulation using 4WW SBA 250 ft up/down 15 steps B rails SBA Days to Meet Goals 10 Frequency of Treatment Frequency Of Treatment Once a Day Treatment Plan Physical Therapy Treatment Plan Bed Mobility Training,Transfer Training,Gait Training, Therapeutic Exercise,Balance Retraining,Discharge Planning, Hot or Cold Pack,Neuromuscular Re-ed,Coordination Retraining Other Recommendations and Next Treatment Trial ambulation w/ 4WW if pt Focus agreeable for energy conservation and stability, check O2. Precautions Other Precautions O2 sat; falls Recommendations To Nursing Amount of Assist Needed Standby Assistance Discharge Recommendations PT Discharge Recommendations Home with Assistance,Home Health Transportation Needs at Discharge Private Vehicle
[2021-05-13 08:10] VITALS: O2SAT 97
--- NOTE | 2021-05-13 08:15 | PM.DS.1 ---
History of Present Illness History of Present Illness Chief complaint: Chest Pain Narrative: Patient is a 80-year-old male with a history of coronary artery disease, status post CABG x2, atrial fibrillation, type 2 diabetes, chronic kidney disease, her recent myocardial infarction 8 weeks ago who presents to the hospital for increasing shortness of breath. Patient reports for the past 10 days he has been more short of breath with activity and with at rest. He has chronic lower extremity edema, he has been unable to lay flat because of his shortness of breath. He also reports cough, but has had no fever or chills. Patient has been vaccinated against COVID and has had his booster. He denies any chest pain palpitations, nausea vomiting or diarrhea. He was evaluated in the emergency room. Chest x-ray confirmed congestive heart failure, proBNP was elevated at 5800, patient was given IV Lasix in the emergency room but continued to be hypoxic with activity. He is admitted to the hospital for definitive treatment of acute congestive heart failure. Discharge Providers Provider Date of admission: 05/10/21 15:45 Discharge Date: 05/13/21 Primary care physician: Claudia Card MD Consults: 05/10/21 18:02 Consult to Physical Therapy Evaluate & Treat Comment: Physician Instructions: Evaluate and Treat Discharge provider: Stella Dorado MD Summary Hospital Course Discharge Diagnosis: 1. Amiodarone toxicity 2. Acute hypoxic respiratory failure secondary to amiodarone toxicity 3. Chronic atrial fibrillation 4. Acute congestive heart failure with preserved ejection fraction 5. Chronic kidney disease stage 4 6. Hypertension 7. Type 2 diabetes Hospital Course: Patient was admitted to the hospital for progressive shortness of breath and hypoxemia. He was noted to be hypoxic in the emergency room with a room air sat of 86%. The patient initially was felt to have congestive heart failure. His proBNP was elevated at over 5000. Patient was diuresed with IV Lasix. Despite diuresis he remains significantly hypoxic. Patient is resting O2 sat was 86%. He required up to 6 L of oxygen with activity. I consulted with his correctional officer captain Dr. Card. She expressed concern regarding amiodarone toxicity. Patient had been on amiodarone for 2 years, recently had a cardiac catheterization, both of which put him at risk for amiodarone toxicity. The amiodarone was discontinued, patient was started on prednisone, he was seen by respiratory therapy and deemed appropriate for home O2. Today he did require 2 L of oxygen at restand required up to 4 L with activity. With oxygen the patient's breathing improved. His blood sugars have increased on the prednisone. He is instructed to increase his basal insulin from 35 units to 40 units at night. He will follow-up with Dr. Card next week. She is arrange for him to have an outpatient pulmonary evaluation as well. At this time the patient is in no acute distress. He is deemed appropriate for discharge home. Status at Discharge Cognitive/behavioral status at discharge: oriented Functional status at discharge: uses cane/walker Overall status at discharge: patient is progressing back to baseline Exam Vital Signs (past 8 hours): - 05/13/21 00:24 05/13/21 05:05 Temperature 97.2 F L 97.5 F L Pulse Rate 59 L 59 L Respiratory Rate 18 18 Blood Pressure 134/55 L 132/59 L Pulse Oximetry 97 98 Oxygen Delivery Method Room Air Oxygen Flow Rate 3 Narrative Exam Narrative: Pleasant male resting comfortably in no obvious distress Resp Other: Lungs: Decreased breath sounds but clear to auscultation Cardio Other: Cardiac exam: Irregularly irregular normal S1-S2 GI Other: Abdomen: Soft nontender nondistended Skin Other: Dry scaly scan of upper and lower extremities Extrem Other: Extremities: No edema, Objective Labs Result Diagrams: 05/10/21 11:10 05/12/21 05:35 Labs: Laboratory Results - last 24 hr 05/12/21 05/12/21 05:35 12:45 D-Dimer 385 H NT-Pro-B Natriuret Pep 4810 H PFSH Medical History (Updated 05/12/21 @ 09:08 by Stella Dorado MD) Atrial fibrillation Congestive heart failure Diabetes Myocardial infarct Family History (Updated 05/10/21 @ 18:21 by Stella Dorado MD) Son Myocardial infarction Mother Myocardial infarction Social History household members: spouse Smoking Status: Former smoker alcohol intake: former Discharge Assessment & Plan Assessment and Plan Assessment: Amiodarone toxicity 2. Acute hypoxic respiratory failure secondary to amiodarone toxicity 3. Chronic atrial fibrillation 4. Acute congestive heart failure with preserved ejection fraction 5. Chronic kidney disease stage 4 6. Hypertension 7. Type 2 diabetes Plan of Treatment: Discontinue amiodarone Continue prednisone Follow-up with Dr. Card next week Outpatient pulmonary follow-up to be arranged by Dr. Card as well Discharge Plan Discharge Plan Patient Disposition: Home Discharge orders & Medications Prescriptions: New prednisone 20 mg Tablet 40 mg PO DAILY Qty: 14 0RF Lantus Solostar U-100 Insulin 100 unit/mL (3 mL) insulin pen 40 unit SUBCUT QPM 15 Days Qty: 6 0RF Continued metoprolol tartrate 50 MG tablet 50 mg PO BID Qty: 0 0RF atorvastatin [Lipitor] 40 MG tablet 80 mg PO QDAY Qty: 0 0RF chlorthalidone 25 mg tablet 25 mg PO DAILY 0RF amlodipine 10 mg tablet 10 mg PO DAILY 0RF furosemide 20 mg tablet 20 mg PO DAILY Qty: 30 0RF Eliquis 4 mg PO BID 0RF Discontinued Lantus Solostar U-100 Insulin 100 unit/mL (3 mL) insulin pen 35 units Sub-Q DAILY 0RF amiodarone 400 mg PO DAILY 0RF Follow up/Referrals: Miscellaneous,DoctorMD [Non-Staff] - Claudia Card MD [Primary Care Provider] - Discharge Health Status Multidrug resistant organism: No MDRO Diet/Activity/Treatments Diet: Carb-consistent/Diabetic and Low-sodium Discharge Data Primary Care Provider: Claudia Card
[2021-05-13] MEDS: predniSONE 20 MG TABLET 40 MG PO (09:47)
[2021-05-13] MEDS: APIXABAN 5 MG TABLET PO (09:48)
[2021-05-13] MEDS: AMLODIPINE 5 MG TABLET 10 MG PO (09:48)
[2021-05-13] MEDS: DOCUSATE 100 MG CAPSULE PO (09:49)
[2021-05-13] MEDS: INSULIN LISPRO 100 UNIT/ML 3ML VIAL SUBCUT (09:56)
[2021-05-13 09:58] VITALS: BP 134/46; PULSE 57; RESP 18; TEMP 36.5; O2SAT 100
[2021-05-13 09:59] VITALS: BP 134/46; PULSE 57
[2021-05-13] MEDS: METOPROLOL ER 50 MG TABLET PO (09:59)
--- NOTE | 2021-05-13 12:49 | PC.NURSE ---
Pt received lying in bed A&Ox3, VSS, afebrile SB 50's on telemetry. He is on 2-3 L NC tolerating well. He denies any pain. SOB with activity. MD at bedside this a.m. clearing patient for discharge home with home 02 and steroid as well as increased lantus. Both patient and daughter at bedside verbalize agreement with plan of care to follow up with van loader upon discharge. Both daughter and patient verbalize understanding of activity, medications, monitoring pulse oxygen and VS as well as blood glucose. He is escorted via w/chair by RN to private vehicle with daughter at 1200 via w/ with portable 02 tank and all of his belongings.
== END 2021-05-13 12:00 | disposition home or self-care (01) | DRG 189 ==
LOC: ED 14:30 → AC 16:20
PROVIDERS: Admitting Provider Internal Medicine; Emergency Provider Emergency Medicine; Family Provider Family Medicine; PCP Internal Medicine; Referring Provider Emergency Medicine; Visit Provider Internal Medicine
DX: J96.01 Acute respiratory failure with hypoxia (principal); I50.31 Acute diastolic (congestive) heart failure; I13.0 Hypertensive heart and chronic kidney disease with heart failure and stage 1 through stage 4 chronic kidney disease, or unspecified chronic kidney disease; I48.20 Chronic atrial fibrillation, unspecified; N18.4 Chronic kidney disease, stage 4 (severe); T46.2X5A Adverse effect of other antidysrhythmic drugs, initial encounter; I25.10 Atherosclerotic heart disease of native coronary artery without angina pectoris; E11.22 Type 2 diabetes mellitus with diabetic chronic kidney disease; Z79.4 Long term (current) use of insulin; Z87.891 Personal history of nicotine dependence; Z95.1 Presence of aortocoronary bypass graft; Z20.822 Contact with and (suspected) exposure to COVID-19; Z79.01 Long term (current) use of anticoagulants
CPT/HCPCS: 36415; 71045; 80048; 80053; 82550; 82962; 83036; 83605; 83735; 83880; 84484; 85025; 85379; 85610; 87040; 87635; 93005; 93010; 93307; 94618; 94760; 94762; 96374; 97116; 97162; 97530; 99285; C9803; J1815; J1940; Q9957

== ENCOUNTER → 2021-05-28 09:43 | Outpatient (CLI) | payer MEDICARE, OTHER, SELFPAY ==
[2021-05-10 15:58] VITALS: BMI 34.9
[2021-05-28 10:35] LABS: BUN Creatinine Ratio 35.6 (6-22); Blood Urea Nitrogen 47 mg/dL (9-20); Calcium 8.4 mg/dL (8.4-10.2); Carbon Dioxide 22 mmol/L (22-32); Chloride 104 mmol/L (98-107); Estimated Glomerular Filt Rate 52.3 mL/min (>60); Glucose 108 mg/dL (80-110); Potassium 4.6 mmol/L (3.4-5.1); Sodium 134 mmol/L (137-145)
[2021-05-28 10:38] LABS: HEMOLYSIS 58 (0-50)
[2021-05-28 10:52] LABS: Free T4, Direct Thyroxine 1.57 ng/dL (0.78-2.19)
[2021-05-28 11:06] LABS: Thyroid Stimulating Hormone 5.42 uIU/mL (0.47-4.68)
== END ==
PROVIDERS: Family Provider Family Medicine; PCP Internal Medicine; Referring Provider Internal Medicine; Visit Provider Internal Medicine
DX: E03.2 Hypothyroidism due to medicaments and other exogenous substances (principal); J84.9 Interstitial pulmonary disease, unspecified
CPT/HCPCS: 36415; 80048; 84439; 84443

== ENCOUNTER 2021-05-29 11:40 | Emergency (ER) | payer MEDICARE, OTHER, SELFPAY ==
[2021-05-10 15:58] VITALS: BMI 34.9
[2021-05-29] VITALS (12 sets, daily range): BP systolic 125–137; BP diastolic 61–65; PULSE 65–75; RESP 15–24; O2SAT 96–100; BMI 26.4
--- NOTE | 2021-05-29 12:01 | ED.BACK ---
HPI - Back Pain/Injury General Chief Complaint: Back Pain/Injury Stated Complaint: Lower back pain Time Seen by Provider: 05/29/21 11:43 Source: patient, EMS, RN notes reviewed and old records reviewed Mode of arrival: EMS Limitations: no limitations History of Present Illness HPI Narrative: This is a 80-year-old male with history of multiple MIs, CABG x2 with NSTEMI in February, CHF, CKD, COPD with AFib atrial fibrillation on Eliquis, insulin-dependent diabetes and now on oxygen x2 months after having a heart catheterization and the IV dye interacting with his amiodarone causing injury to his lungs as well as icythyosis. Patient presents today with complaint of thoracic back pain which started about 4:00 a.m.. Patient states movement does not seem to make it worse. He told EMS it felt a little better standing. He was able to stand and ambulate at home he states that he has felt unsteady on his legs this has been longstanding uses canes and walkers intermittently but was concerned he might not make it to the car today. He denies any new acute or lateralizing weakness in his legs. No new loss of bowel or bladder control. He denies any numbness or tingling. He was seen yesterday at [facility] for shortness of breath and was given Lasix. Patient states his legs were very enlarged, tight and weeping. He had some improvement they have decreased in size in the weeping has resolved since yesterday. Patient denies any fevers or chills. He denies any chest pain or pressure. Denies any nausea or vomiting. He denies any diarrhea or constipation. No loss of bowel or bladder control. No new urinary symptoms. Patient states the back pain on each side of the spine sort of lower thoracic region. Patient denies any worsening symptoms with movement or rotation. He states the pain started this morning. He was in the emergency department on ED gurvista for 7-8 hours before being discharged home. Patient denies any other recent trauma or injuries. He states he did have a fall about 6 weeks ago but did not have any back pain until today. He took Tylenol which was somewhat helpful. He defers anything for pain at this time. He denies any radiation of his pain. He has not had chronic back issues. He states he did not take his medications this morning he does normally take medications regularly. He states he did have some good urine output from the Lasix yesterday overnight. He quit smoking in the 80s. No regular alcohol use, no illicit. His a does not have a primary care physician but follows with Dr. Card for his Cardiology, Nephrology for chronic kidney disease at [facility] as well as endocrine with Dr. Hauser at [facility]. Related Data Home Medications Medication Instructions Recorded Confirmed metoprolol tartrate 50 mg tablet 50 mg PO BID #0 09/23/11 05/10/21 atorvastatin 40 mg tablet (Lipitor) 80 mg PO QDAY #0 09/24/11 05/10/21 amlodipine 10 mg tablet 10 mg PO DAILY 09/23/17 05/10/21 chlorthalidone 25 mg tablet 25 mg PO DAILY 09/23/17 05/10/21 Eliquis 4 mg PO BID 11/30/20 05/10/21 Previous Rx's Medication Instructions Recorded furosemide 20 mg tablet 20 mg PO DAILY #30 tab 09/23/17 prednisone 20 mg tablet 40 mg PO DAILY 30 Days #60 tab 05/13/21 Allergies Allergy/AdvReac Type Severity Reaction Status Date / Time lisinopril AdvReac Mild COUGH Verified 11/30/20 07:15 Review of Systems Review of Systems ROS Unobtainable: All systems reviewed & are unremarkable except as noted in HPI and below Patient History Medical History Atrial fibrillation Congestive heart failure Diabetes Myocardial infarct Family History Son Myocardial infarction Mother Myocardial infarction Social History household members: spouse Smoking Status: Former smoker alcohol intake: former Smoking Status: Former smoker alcohol intake frequency: 0-2 drinks per day Substance Use Type: does not use Exam Narrative Exam Narrative: GENERAL: Alert and oriented x three, other early male in mild distress. HEENT: Head normocephalic, atraumatic, EOMI, pupils reactive, face symmetric, moist mucous membranes NECK: Supple, full range of motion CARDIOVASCULAR: Regular rate and rhythm without murmurs, rubs or gallops. Patient has bilateral lower extremity swelling with 2+ edema. No weeping or drainage from the skin. RESPIRATORY: Breath sounds equal bilaterally, no wheezes rales or rhonchi. No tachypnea accessory muscle use. ABDOMEN: Soft, nontender. Normoactive bowel sounds all 4 quadrants. No guarding or rebound, rigidity, no mass : No CVA tenderness BACK: No cervical, thoracic or lumbar vertebral point tenderness. No skin changes noted. Patient describes some discomfort with palpation at the paraspinal muscles at T10 range but no acute bony tenderness. There is some tightness of the muscles but no bogginess or asymmetry. Has normal range of motion. Rectal exam is deferred. Muscle strength is 5/5 in lower extremities, patient does not have any increased pain with straight leg lift, pedis and tibialis pulses are 2+ and lower extremities. Sensation is intact in the lower extremities. No saddle anesthesia. EXTREMITIES: Normal range of motion. Neurovascularly intact NEUROLOGICAL: Cranial nerves II through XII grossly intact. Moving all extremities SKIN: Warm, dry, no petechiae, no rashes or lesions. Initial Vital Signs Initial Vital Signs: Vital Signs Pulse Rate 72 05/29/21 11:45 Pulse Oximetry 99 05/29/21 11:45 Course Orders Ordered: ED Orders 05/29/21 12:03 XR chest 1V Stat XR thoracic spine 2V Stat 05/29/21 12:04 EKG-12 Lead Stat 05/29/21 12:07 BNP [NT-proBNP (BNP-Adult 18+)] Stat Complete Blood Count AUTO DIFF Stat Comprehensive Metabolic Panel Stat Lipase Stat Troponin & CK Cardiac Panel Stat 05/29/21 14:00 EKG-12 Lead Stat 05/29/21 14:05 Troponin I Stat Reevaluation(s) Reevaluation #1: Patient's initial troponin is indeterminate, he states back pain present but mild. He he denies any other issues or symptoms currently. Discussed plan to repeat troponin, EKG for any acute changes and ambulation trial for potential discharge home. Reevaluation #2: Patient back pain has improved he was able to ambulate in the department without assistance. Patient's labs, imaging reviewed with patient and family he has follow-up tomorrow with his medical center manager. He does have a little leukocytosis possible infiltrate on chest x-ray but does appear to be in CHF. He had a dose of Lasix yesterday he and I discussed take an additional dose today but he defers until he sees his medical center manager today. Discussed all of his findings including his troponin results and BNP. Time: 15:58 Vital Signs Vital signs: Vital Signs - 8 hr 05/29/21 11:45 05/29/21 11:46 05/29/21 11:51 Pulse Rate 72 70 72 Respiratory Rate 18 Blood Pressure 137/65 137/65 Pulse Oximetry 99 100 100 05/29/21 12:00 05/29/21 13:00 05/29/21 13:30 Pulse Rate 66 66 72 Respiratory Rate 18 15 24 Blood Pressure 125/61 Pulse Oximetry 100 100 98 05/29/21 14:00 05/29/21 14:30 05/29/21 15:00 Pulse Rate 70 65 65 Respiratory Rate 19 17 15 Blood Pressure Pulse Oximetry 100 100 98 05/29/21 15:30 05/29/21 15:44 05/29/21 16:00 Pulse Rate 68 75 67 Respiratory Rate 16 21 17 Blood Pressure 126/61 135/61 Pulse Oximetry 98 96 100 MDM - Back Pain/Injury Lab Data Result diagrams: 05/29/21 12:07 05/29/21 12:07 Labs: Lab Results 05/29/21 05/29/21 05/29/21 Range/Units 12:07 12:07 14:05 WBC 15.0 H (4.5-11.0) X10^3/uL RBC 3.13 L (4.5-5.9) X10^6/uL Hgb 10.0 L (13.5-17.5) g/dL Hct 29.7 L (41-53) % MCV 95.0 (80-100) fL MCH 32.1 (26-34) PG MCHC 33.8 (30-36) % RDW 15.8 H (11.6-14.8) % Plt Count 151 (150-400) X10^3/uL Neut % (Auto) 95.0 H (50-75) % Lymph % (Auto) 2.7 L (25-40) % [place] % (Auto) 2.0 L (3-14) % Eos % (Auto) 0.2 L (2-4) % Baso % (Auto) 0.1 (0-2) % Neut # (Auto) 81256 H (9962-9414) /uL Lymph # (Auto) 400 L (0261-2719) /uL [place] # (Auto) 300 (0-900) /uL Eos # (Auto) 0 (0-450) /uL Baso # (Auto) 0 (0-100) /uL Sodium 132 L (137-145) mmol/L Potassium 3.7 (3.4-5.1) mmol/L Chloride 102 (98-107) mmol/L Carbon Dioxide 26 (22-32) mmol/L BUN 45 H (9-20) mg/dL Creatinine 1.33 H (0.66-1.25) mg/dL Estimated GFR 51.9 L (>60) mL/min BUN/Creatinine Ratio 33.8 H (6-22) Glucose 89 (80-110) mg/dL Calcium 8.2 L (8.4-10.2) mg/dL Total Bilirubin 1.3 (0.2-1.3) mg/dL AST 23 (17-59) IU/L ALT 30 (<50) IU/L Alkaline Phosphatase 90 (38-126) U/L Total Creatine Kinase 46 L (55-170) U/L CK-MB (CK-2) TNP CK-MB (CK-2) Rel Index TNP Troponin I 0.041 H 0.064 H (0.01-0.034) ng/mL NT-Pro-B Natriuret Pep 5260 H (<450) pg/mL Total Protein 6.0 L (6.3-8.2) g/dL Albumin 3.1 L (3.5-5.0) g/dL Globulin 2.9 (1.7-4.1) g/dL Albumin/Globulin Ratio 1.1 (1.0-2.8) Lipase 58 (23-300) U/L Point of Care Testing Glucose POC 51 Imaging Data Chest x-ray: Radiologist's Impression: [address] [address] XRay Report Signed Patient: Mateus Chu MR#: [id number] : 1940 Acct:[id number] Age/Sex: 80 / M Date of Service: 05/29/21 Loc: ED Accession Number: [id number] ?? Procedure: XR chest 1V Ordering Provider: Kathy Sorensen D.O. PROCEDURE:? XR CHEST 1V ? INDICATIONS:? back pain, chf ? TECHNIQUE:? One view of the chest was acquired.? ? COMPARISON:? [facility], CR, XR CHEST 1V, 05/10/2021, 10:37. ? FINDINGS:? ? Surgical changes and devices:? Midline sternal wires and multiple mediastinal vascular clips ? Lungs and pleura:? Minimal left basilar atelectasis and or infiltrate ? Mediastinum:? Mediastinal contours appear normal.? Heart size is normal.? Atherosclerotic vascular calcification noted in the aortic arch. ? Bones and chest wall:? No suspicious bony lesions.? Overlying soft tissues appear unremarkable.? ? IMPRESSION:? ? Minimal left basilar atelectasis and or infiltrate ? ? ? Approved by: Jewel Batres M.D. on 05/29/2021 at 11:52? thoracic spine xray: Radiologist's Impression: [address] [address] XRay Report Signed Patient: Mateus Chu MR#: [id number] : 1940 Acct:[id number] Age/Sex: 80 / M Date of Service: 05/29/21 Loc: ED Accession Number: [id number] ?? Procedure: XR thoracic spine 2V Ordering Provider: Kathy Sorensen D.O. PROCEDURE:? XR THORACIC SPINE 2V ? INDICATIONS:? back pain ? TECHNIQUE:? 3 views of the thoracic spine were acquired.? ? COMPARISON:? None. ? FINDINGS:? ? Bones:? No fractures or dislocations.? No suspicious bony lesions.? 12 pairs of ribs are noted, and appear intact where visualized.? ? Soft tissues:? No paravertebral stripe thickening.? Mediastinal vascular clips midline sternal wires noted ? ? IMPRESSION:? Unremarkable thoracic spine radiographs ? ? ? Approved by: Jewel Batres M.D. on 05/29/2021 at 11:54? ECG Data Attestation: I personally reviewed and interpreted this ECG as follows: Prior ECG tracings: available for review Interpretation: Sinus rhythm with first-degree AV block, left axis deviation, right bundle-branch block. Rate of 67 UT 320 QRS of 172 and QTC 496. Patient has prior EKG from outside facility from May 28, 2021 which appears similar to today's with no acute changes noted. EKG 2. Shows sinus rhythm with first-degree AV block, occasional PVC, left axis deviation right bundle-branch cleared rate of 71, P are 352 QRS of 180 and QTC of 459. Patient does not appear to have any acute ST changes in comparison from today to the next. MDM Narrative Medical decision making narrative: Patient was seen yesterday at [facility]. BNP was 4590 a pro BNP, troponin was 0.031 this is a troponin I./electrolytes were normal creatinine was 1.38, LFTs were normal. CBC shows anemia hemoglobin of 10 with platelets 173 and a white count of 9.8. Patient did have a chest x-ray with some pulmonary vascular congestion. Patient not have any acute EKG changes. Patient's chart has not been completed but he had Lasix and states that he diuresed there an at home and had improvement swelling in his lower extremities. He developed back pain today and was somewhat unsteady so came to be evaluated he drives his shortness of breath has having improved. Patient's labs do show a leukocytosis which is new, possible atelectasis versus pneumonia, renal function appears stable, troponins indeterminate was repeated to evaluate of trending upwards/positive value, BNP is similar to yesterday's but clinically appears improved. X-rays were obtained he has not had any recent trauma he did have a fall 6 weeks ago but daughter states that they had him lying flat on the bed with his legs elevated last night which is new normally sleeps upright in a chair which may have caused some of his back discomfort. Discharge Plan Departure Patient Disposition: Home Clinical Impression: Back pain, thoracic Instructions: Thoracic Back Pain Activity Restrictions/Additional Instructions: Follow-up with Dr. Card tomorrow at your cardiology visit. Your labs continued reflect CHF for congestive heart failure. A copy of your labs should be included today. Please continue home medications as prescribed. Take furosemideas prescribed, I would recommend taking 1 extra tablet of furosemide for the next 2 days. If you prefer discussed with Dr. Card you can come up with a plan. Please return for new or worsening chest pain or shortness of breath, lightheadedness or passing out, increasing or new back pain, change in nature of your pain. New weakness, numbness or loss of sensation or other new or concerning symptoms. Prescriptions: No Action metoprolol tartrate 50 MG tablet 50 mg PO BID Qty: 0 0RF atorvastatin [Lipitor] 40 MG tablet 80 mg PO QDAY Qty: 0 0RF chlorthalidone 25 mg tablet 25 mg PO DAILY 0RF amlodipine 10 mg tablet 10 mg PO DAILY 0RF furosemide 20 mg tablet 20 mg PO DAILY Qty: 30 0RF prednisone 20 mg tablet 40 mg PO DAILY 30 Days Qty: 60 0RF Eliquis 4 mg PO BID 0RF Referrals: Claudia Card MD [Primary Care Provider] -
--- NOTE | 2021-05-29 12:03 | DI.RAD.S_ITS ---
PROCEDURE: XR CHEST 1V INDICATIONS: back pain, chf TECHNIQUE: One view of the chest was acquired. COMPARISON: [facility], CR, XR CHEST 1V, 05/10/2021, 10:37. FINDINGS: Surgical changes and devices: Midline sternal wires and multiple mediastinal vascular clips Lungs and pleura: Minimal left basilar atelectasis and or infiltrate Mediastinum: Mediastinal contours appear normal. Heart size is normal. Atherosclerotic vascular calcification noted in the aortic arch. Bones and chest wall: No suspicious bony lesions. Overlying soft tissues appear unremarkable. IMPRESSION: Minimal left basilar atelectasis and or infiltrate Approved by: Jewel Batres M.D. on 05/29/2021 at 11:52
--- NOTE | 2021-05-29 12:03 | DI.RAD.S_ITS ---
PROCEDURE: XR THORACIC SPINE 2V INDICATIONS: back pain TECHNIQUE: 3 views of the thoracic spine were acquired. COMPARISON: None. FINDINGS: Bones: No fractures or dislocations. No suspicious bony lesions. 12 pairs of ribs are noted, and appear intact where visualized. Soft tissues: No paravertebral stripe thickening. Mediastinal vascular clips midline sternal wires noted IMPRESSION: Unremarkable thoracic spine radiographs Approved by: Jewel Batres M.D. on 05/29/2021 at 11:54
[2021-05-29 12:27] LABS: Alanine Aminotransferase 30 IU/L (<50); Albumin 3.1 g/dL (3.5-5.0); Albumin Globulin Ratio 1.1 (1.0-2.8); Alkaline Phosphatase 90 U/L (38-126); Aspartate Aminotransferase 23 IU/L (17-59); BUN Creatinine Ratio 33.8 (6-22); Bilirubin Total 1.3 mg/dL (0.2-1.3); Blood Urea Nitrogen 45 mg/dL (9-20); Calcium 8.2 mg/dL (8.4-10.2); Carbon Dioxide 26 mmol/L (22-32); Chloride 102 mmol/L (98-107); Creatine Kinase 46 U/L (55-170); Estimated Glomerular Filt Rate 51.9 mL/min (>60); Globulin 2.9 g/dL (1.7-4.1); Glucose 89 mg/dL (80-110); HEMOLYSIS < 15 (0-50); Lipase 58 U/L (23-300); Potassium 3.7 mmol/L (3.4-5.1); Sodium 132 mmol/L (137-145)
[2021-05-29 12:36] LABS: Add Manual Diff / Slide Review NO; Basophils Absolute Auto 0 /uL (0-100); Basophils Percent Auto 0.1 % (0-2); Eosinophils Absolute Auto 0 /uL (0-450); Eosinophils Percent Auto 0.2 % (2-4); Hematocrit 29.7 % (41-53); Lymphocytes Absolute Auto 400 /uL (1100-4500); Lymphocytes Percent Auto 2.7 % (25-40); Mean Corpuscular HGB Conc 33.8 % (30-36); Mean Corpuscular Hemoglobin 32.1 PG (26-34); Monocytes Absolute Auto 300 /uL (0-900); Neutrophils Absolute Auto 14300 /uL (1500-7000); Platelet Count 151 X10^3/uL (150-400); Red Blood Cell Count 3.13 X10^6/uL (4.5-5.9); Red Cell Distribution Width 15.8 % (11.6-14.8)
[2021-05-29 12:39] LABS: NT-proBNP (BNP-Adult 18+) 5260 pg/mL (<450); Troponin I 0.041 ng/mL (0.01-0.034)
[2021-05-29 14:45] LABS: Troponin I 0.064 ng/mL (0.01-0.034)
== END 2021-05-29 16:18 | disposition home or self-care (01) ==
PROVIDERS: Emergency Provider Emergency Medicine; Family Provider Family Medicine; PCP Internal Medicine
DX: M54.6 Pain in thoracic spine (principal); I44.0 Atrioventricular block, first degree; I45.10 Unspecified right bundle-branch block; E11.9 Type 2 diabetes mellitus without complications; Z79.4 Long term (current) use of insulin
CPT/HCPCS: 36415; 71045; 72070; 80053; 82550; 82962; 83690; 83880; 84484; 85025; 93005; 93010; 99284; 99285

== ENCOUNTER → 2021-06-06 13:21 | Outpatient (CLI) | payer MEDICARE, OTHER, SELFPAY ==
[2021-05-10 15:58] VITALS: BMI 34.9
[2021-06-06 14:17] LABS: Hemoglobin A1C% w Est Avg Glu 8.3 % (4.0-6.0)
[2021-06-06 14:20] LABS: BUN Creatinine Ratio 31.7 (6-22); Blood Urea Nitrogen 44 mg/dL (9-20); Calcium 8.4 mg/dL (8.4-10.2); Carbon Dioxide 30 mmol/L (22-32); Chloride 101 mmol/L (98-107); Estimated Glomerular Filt Rate 49.3 mL/min (>60); Glucose 144 mg/dL (80-110); HEMOLYSIS 21 (0-50); Potassium 4.5 mmol/L (3.4-5.1); Sodium 135 mmol/L (137-145)
[2021-06-06 14:29] LABS: Add Manual Diff / Slide Review NO; Basophils Absolute Auto 0 /uL (0-100); Basophils Percent Auto 0.1 % (0-2); Eosinophils Absolute Auto 100 /uL (0-450); Eosinophils Percent Auto 0.5 % (2-4); Hematocrit 31.2 % (41-53); Hemoglobin 10.3 g/dL (13.5-17.5); Lymphocytes Absolute Auto 300 /uL (1100-4500); Lymphocytes Percent Auto 2.8 % (25-40); Mean Corpuscular HGB Conc 32.9 % (30-36); Mean Corpuscular Hemoglobin 31.3 PG (26-34); Mean Corpuscular Volume 95.1 fL (80-100); Monocytes Absolute Auto 200 /uL (0-900); Monocytes Percent Auto 2.2 % (3-14); Neutrophils Absolute Auto 8800 /uL (1500-7000); Neutrophils Percent Auto 94.4 % (50-75); Platelet Count 217 X10^3/uL (150-400); Red Blood Cell Count 3.28 X10^6/uL (4.5-5.9); Red Cell Distribution Width 15.7 % (11.6-14.8); White Blood Cell Count 9.3 X10^3/uL (4.5-11.0)
== END ==
PROVIDERS: Family Provider Family Medicine; PCP Internal Medicine; Referring Provider Internal Medicine; Visit Provider Internal Medicine
DX: I25.5 Ischemic cardiomyopathy (principal); E11.9 Type 2 diabetes mellitus without complications
CPT/HCPCS: 36415; 80048; 83036; 85025

== ENCOUNTER → 2021-08-15 12:06 | Outpatient (CLI) | payer MEDICARE, OTHER, SELFPAY ==
[2021-05-10 15:58] VITALS: BMI 34.9
[2021-08-15 14:03] LABS: BUN Creatinine Ratio 25.4 (6-22); Blood Urea Nitrogen 44 mg/dL (9-20); Calcium 8.8 mg/dL (8.4-10.2); Carbon Dioxide 30 mmol/L (22-32); Chloride 97 mmol/L (98-107); Estimated Glomerular Filt Rate 39 mL/min (>60); Glucose 219 mg/dL (80-110); HEMOLYSIS < 15 (0-50); Potassium 4.1 mmol/L (3.4-5.1); Sodium 133 mmol/L (137-145)
== END ==
PROVIDERS: Family Provider Family Medicine; PCP Internal Medicine; Referring Provider Internal Medicine; Visit Provider Internal Medicine
DX: I25.5 Ischemic cardiomyopathy (principal)
CPT/HCPCS: 36415; 80048

== ENCOUNTER → 2021-08-26 13:27 | Outpatient (CLI) | payer MEDICARE, OTHER, SELFPAY ==
[2021-05-10 15:58] VITALS: BMI 34.9
[2021-08-26 14:01] LABS: Add Manual Diff / Slide Review NO; Basophils Absolute Auto 100 /uL (0-100); Basophils Percent Auto 0.9 % (0-2); Eosinophils Absolute Auto 100 /uL (0-450); Eosinophils Percent Auto 0.8 % (2-4); Hematocrit 35.9 % (41-53); Hemoglobin 12.2 g/dL (13.5-17.5); Lymphocytes Absolute Auto 600 /uL (1100-4500); Lymphocytes Percent Auto 6.1 % (25-40); Mean Corpuscular HGB Conc 34.1 % (30-36); Mean Corpuscular Hemoglobin 32.5 PG (26-34); Mean Corpuscular Volume 95.3 fL (80-100); Monocytes Absolute Auto 1100 /uL (0-900); Monocytes Percent Auto 11.6 % (3-14); Neutrophils Absolute Auto 7900 /uL (1500-7000); Neutrophils Percent Auto 80.6 % (50-75); Platelet Count 218 X10^3/uL (150-400); Red Blood Cell Count 3.76 X10^6/uL (4.5-5.9); Red Cell Distribution Width 17.2 % (11.6-14.8); White Blood Cell Count 9.8 X10^3/uL (4.5-11.0)
[2021-08-26 14:28] LABS: Appearance Urine UA CLEAR; Bilirubin Urine UA NEGATIVE (NEGATIVE); Color Urine UA YELLOW; Glucose Urine UA NEGATIVE (Negative); Ketones Urine UA NEGATIVE (NEGATIVE); Leukocyte Esterase Urine UA NEGATIVE (NEGATIVE); Nitrite Urine UA NEGATIVE (Negative); Occult Blood Urine UA NEGATIVE (Negative); Protein Urine UA NEGATIVE (Negative); Specific Gravity Urine UA 1.015 (1.000-1.035); Urobilinogen Urine UA 0.2 E.U./dL (0.2)
== END ==
PROVIDERS: Family Provider Family Medicine; PCP Internal Medicine; Referring Provider Internal Medicine; Visit Provider Internal Medicine
DX: N28.9 Disorder of kidney and ureter, unspecified (principal)
CPT/HCPCS: 36415; 81003; 85025

== ENCOUNTER → 2021-09-22 12:08 | Outpatient (CLI) | payer MEDICARE, OTHER, SELFPAY ==
[2021-05-10 15:58] VITALS: BMI 34.9
[2021-09-22 13:26] LABS: BUN Creatinine Ratio 14.6 (6-22); Blood Urea Nitrogen 27 mg/dL (9-20); Carbon Dioxide 30 mmol/L (22-32); Chloride 102 mmol/L (98-107); Estimated Glomerular Filt Rate 36 mL/min (>60); Glucose 159 mg/dL (80-110); HEMOLYSIS < 15 (0-50); Sodium 137 mmol/L (137-145)
== END ==
PROVIDERS: Family Provider Family Medicine; PCP Internal Medicine; Referring Provider Internal Medicine; Visit Provider Internal Medicine
DX: N28.9 Disorder of kidney and ureter, unspecified (principal)
CPT/HCPCS: 36415; 80048

== ENCOUNTER → 2021-09-28 13:25 | Outpatient (CLI) | payer MEDICARE, OTHER, SELFPAY ==
[2021-05-10 15:58] VITALS: BMI 34.9
[2021-09-28 16:00] LABS: Blood Urea Nitrogen 25 mg/dL (9-20); Calcium 9.1 mg/dL (8.4-10.2); Carbon Dioxide 28 mmol/L (22-32); Estimated Glomerular Filt Rate 45 mL/min (>60); HEMOLYSIS < 15 (0-50)
[2021-09-28 16:08] LABS: Chloride 103 mmol/L (98-107); Potassium 4.3 mmol/L (3.4-5.1); Sodium 140 mmol/L (137-145)
[2021-09-28 16:23] LABS: Glucose 37 mg/dL (80-110)
== END ==
PROVIDERS: Family Provider Family Medicine; PCP Internal Medicine; Referring Provider Internal Medicine; Visit Provider Internal Medicine
DX: N28.9 Disorder of kidney and ureter, unspecified (principal)
CPT/HCPCS: 36415; 80048

== ENCOUNTER → 2021-11-03 08:41 | Outpatient (CLI) | payer MEDICARE, OTHER, SELFPAY ==
[2021-05-10 15:58] VITALS: BMI 34.9
[2021-11-03 09:24] LABS: Hemoglobin A1C% w Est Avg Glu 7.6 % (4.0-6.0)
[2021-11-03 10:16] LABS: Creatinine Urine Random 65.7 mg/dL
[2021-11-03 10:20] LABS: Microalbumi Creatinin Ratio Ur 214.6 ug/mg CR (<30); Microalbumin Urine Random 14.1 mg/dL (0-1.6)
[2021-11-03 10:44] LABS: Alanine Aminotransferase 16 IU/L (<50); Albumin 3.5 g/dL (3.5-5.0); Albumin Globulin Ratio 1.4 (1.0-2.8); Alkaline Phosphatase 113 U/L (38-126); Aspartate Aminotransferase 22 IU/L (17-59); BUN Creatinine Ratio 21.8 (6-22); Bilirubin Total 0.5 mg/dL (0.2-1.3); Blood Urea Nitrogen 32 mg/dL (9-20); Calcium 9.1 mg/dL (8.4-10.2); Carbon Dioxide 29 mmol/L (22-32); Chloride 102 mmol/L (98-107); Cholesterol 117 mg/dL (140-199); Estimated Glomerular Filt Rate 48 mL/min (>60); Globulin 2.5 g/dL (1.7-4.1); Glucose 56 mg/dL (80-110); HDL Cholesterol 36 mg/dL (40-60); HEMOLYSIS < 15 (0-50); LDL Cholesterol Calculated 62 mg/dL (<100); Potassium 3.9 mmol/L (3.4-5.1); Sodium 140 mmol/L (137-145); Triglycerides 94 mg/dL (35-150)
== END ==
PROVIDERS: Family Provider Family Medicine; PCP Internal Medicine; Referring Provider Internal Medicine Endocrinology, Diabetes & Metabolism; Visit Provider Internal Medicine Endocrinology, Diabetes & Metabolism
DX: E11.22 Type 2 diabetes mellitus with diabetic chronic kidney disease (principal); N18.31 Chronic kidney disease, stage 3a; Z79.4 Long term (current) use of insulin; I25.5 Ischemic cardiomyopathy
CPT/HCPCS: 36415; 80053; 80061; 82043; 82570; 83036

== ENCOUNTER → 2021-11-17 13:55 | Outpatient (CLI) | payer MEDICARE, OTHER, SELFPAY ==
[2021-05-10 15:58] VITALS: BMI 34.9
[2021-11-17 15:05] LABS: Albumin 3.6 g/dL (3.5-5.0); BUN Creatinine Ratio 21.3 (6-22); Blood Urea Nitrogen 42 mg/dL (9-20); Calcium 9.2 mg/dL (8.4-10.2); Carbon Dioxide 28 mmol/L (22-32); Chloride 97 mmol/L (98-107); Estimated Glomerular Filt Rate 34 mL/min (>60); Glucose 275 mg/dL (80-110); HEMOLYSIS < 15 (0-50); Potassium 4.4 mmol/L (3.4-5.1); Sodium 138 mmol/L (137-145)
[2021-11-17 16:21] LABS: Vitamin D 25 Hydroxy (D3) 68.2 ng/mL (30.0-100.0)
[2021-11-18 09:16] LABS: Parathyroid Hormone Int 51 pg/mL (15-65)
== END ==
PROVIDERS: Family Provider Family Medicine; PCP Family Medicine; Referring Provider Internal Medicine Nephrology; Visit Provider Internal Medicine Nephrology
DX: N18.32 Chronic kidney disease, stage 3b (principal)
CPT/HCPCS: 36415; 80069; 82306; 83970

== ENCOUNTER → 2022-01-10 10:09 | Outpatient (CLI) | payer MEDICARE, OTHER, SELFPAY ==
[2021-05-10 15:58] VITALS: BMI 34.9
[2022-01-10 12:17] LABS: Add Manual Diff / Slide Review NO; Basophils Absolute Auto 100 /uL (0-100); Basophils Percent Auto 0.9 % (0-2); Eosinophils Absolute Auto 100 /uL (0-450); Eosinophils Percent Auto 1.9 % (2-4); Hematocrit 38.9 % (41-53); Hemoglobin 12.7 g/dL (13.5-17.5); Lymphocytes Absolute Auto 800 /uL (1100-4500); Lymphocytes Percent Auto 13.1 % (25-40); Mean Corpuscular HGB Conc 32.7 % (30-36); Mean Corpuscular Hemoglobin 30.5 PG (26-34); Mean Corpuscular Volume 93.3 fL (80-100); Monocytes Absolute Auto 900 /uL (0-900); Monocytes Percent Auto 15.5 % (3-14); Neutrophils Absolute Auto 4000 /uL (1500-7000); Neutrophils Percent Auto 68.6 % (50-75); Platelet Count 213 X10^3/uL (150-400); Red Blood Cell Count 4.17 X10^6/uL (4.5-5.9); Red Cell Distribution Width 14.5 % (11.6-14.8); White Blood Cell Count 5.9 X10^3/uL (4.5-11.0)
[2022-01-10 12:44] LABS: Alanine Aminotransferase 18 IU/L (<50); Albumin 3.5 g/dL (3.5-5.0); Albumin Globulin Ratio 1.2 (1.0-2.8); Alkaline Phosphatase 114 U/L (38-126); Aspartate Aminotransferase 20 IU/L (17-59); BUN Creatinine Ratio 16.6 (6-22); Bilirubin Total 0.4 mg/dL (0.2-1.3); Blood Urea Nitrogen 29 mg/dL (9-20); Carbon Dioxide 26 mmol/L (22-32); Chloride 102 mmol/L (98-107); Estimated Glomerular Filt Rate 39 mL/min (>60); Globulin 2.9 g/dL (1.7-4.1); Glucose 189 mg/dL (80-110); HEMOLYSIS < 15 (0-50); Potassium 4.2 mmol/L (3.4-5.1); Sodium 138 mmol/L (137-145); Total Protein 6.4 g/dL (6.3-8.2)
== END ==
PROVIDERS: Family Provider Family Medicine; PCP Family Medicine; Referring Provider Internal Medicine Nephrology; Visit Provider Internal Medicine Nephrology
DX: N18.32 Chronic kidney disease, stage 3b (principal)
CPT/HCPCS: 36415; 80053; 85025

== ENCOUNTER → 2022-01-26 13:04 | Outpatient (CLI) | payer MEDICARE, OTHER, SELFPAY ==
[2021-05-10 15:58] VITALS: BMI 34.9
[2022-01-26 13:59] LABS: Hemoglobin A1C% w Est Avg Glu 8.6 % (4.0-6.0)
[2022-01-26 14:15] LABS: Alanine Aminotransferase 18 IU/L (<50); Albumin 3.8 g/dL (3.5-5.0); Albumin Globulin Ratio 1.4 (1.0-2.8); Alkaline Phosphatase 113 U/L (38-126); Aspartate Aminotransferase 19 IU/L (17-59); BUN Creatinine Ratio 17.1 (6-22); Bilirubin Total 0.5 mg/dL (0.2-1.3); Blood Urea Nitrogen 33 mg/dL (9-20); Calcium 9.3 mg/dL (8.4-10.2); Carbon Dioxide 24 mmol/L (22-32); Chloride 100 mmol/L (98-107); Cholesterol 120 mg/dL (140-199); Estimated Glomerular Filt Rate 35 mL/min (>60); Globulin 2.7 g/dL (1.7-4.1); Glucose 240 mg/dL (80-110); HDL Cholesterol 42 mg/dL (40-60); HEMOLYSIS < 15 (0-50); LDL Cholesterol Calculated 55 mg/dL (<100); Potassium 4.6 mmol/L (3.4-5.1); Sodium 137 mmol/L (137-145); Total Protein 6.5 g/dL (6.3-8.2); Triglycerides 116 mg/dL (35-150)
[2022-01-26 15:39] LABS: Microalbumi Creatinin Ratio Ur 145.8 ug/mg CR (<30); Microalbumin Urine Random 3.5 mg/dL (0-1.6)
== END ==
PROVIDERS: Family Provider Family Medicine; PCP Family Medicine; Referring Provider Internal Medicine Endocrinology, Diabetes & Metabolism; Visit Provider Internal Medicine Endocrinology, Diabetes & Metabolism
DX: E11.22 Type 2 diabetes mellitus with diabetic chronic kidney disease (principal); N18.31 Chronic kidney disease, stage 3a; Z79.4 Long term (current) use of insulin
CPT/HCPCS: 36415; 80053; 80061; 82043; 82570; 83036

== ENCOUNTER 2022-04-30 10:21 | Emergency (ER) | payer MEDICARE, OTHER, SELFPAY ==
[2021-05-10 15:58] VITALS: BMI 34.9
[2022-04-30 10:39] VITALS: BP 136/63; PULSE 65; RESP 18; TEMP 36.6; O2SAT 95; BMI 31.2
--- NOTE | 2022-04-30 12:40 | ED.WOUNDLAC ---
HPI - Wound/Laceration <EDDIE Vallejo - Last Filed: 04/30/22 13:12> General Chief Complaint: Wound/Laceration Stated Complaint: hole in the leg from bushes Time Seen by Provider: 04/30/22 12:08 Source: patient Mode of arrival: Ambulatory History of Present Illness HPI narrative: 81-year-old male, former smoker with history of diabetes, hypertension and on blood thinners for atrial fibrillation, presents to the emergency department with a v-shaped skin avulsion to left jin that occurred 2 days ago at home. Patient was doing some yard work when a stick jabbed him in the left jin. Patient reports that it bled quite a bit at the time and was able to clean it out with soap and water. Patient applied a bandage that controlled the bleeding. Patient's daughter insisted patient come in for evaluation this morning due to concerns over not healing quickly secondary to his diabetes. Related Data Home Medications Medication Instructions Recorded Confirmed Balance of Nature PO DAILY 11/16/21 acetaminophen 325 mg tablet 325 mg PO BID PRN 11/16/21 11/16/21 amoxicillin 500 mg tablet 500 mg PO TID 11/16/21 11/16/21 apixaban 5 mg tablet (Eliquis) 5 mg PO BID 11/16/21 11/16/21 atorvastatin 80 mg tablet 80 mg PO BEDTIME 11/16/21 11/16/21 blood sugar diagnostic ([facility] 11/16/21 11/16/21 Ultra Test strips) carvedilol 6.25 mg tablet 6.25 mg PO BID 11/16/21 11/16/21 chlorhexidine gluconate 0.12 % 15 ml PO BID 11/16/21 11/16/21 mouthwash cholecalciferol (vitamin D3) 250 250 mcg PO DAILY 11/16/21 11/16/21 mcg (10,000 unit) capsule cyanocobalamin (vitamin B-12) 250 250 mcg PO DAILY 11/16/21 11/16/21 mcg tablet dulaglutide 1.5 mg/0.5 mL 1.5 mg SUBCUT 11/16/21 11/16/21 subcutaneous pen injector (Trulicity) empagliflozin 25 mg tablet 25 mg PO DAILY 11/16/21 11/16/21 (Jardiance) glucagon 1 mg solution for 1 mg IM 11/16/21 11/16/21 injection (Glucagon Emergency Kit) insulin aspart U-100 100 unit/mL 1 sliding scale dose SUBCUT 11/16/21 11/16/21 (3 mL) subcutaneous pen insulin glargine 100 unit/mL (3 See Rx Instructions SUBCUT .COMPLEX 11/16/21 11/16/21 mL) subcutaneous pen (Lantus Solostar U-100 Insulin) isosorbide mononitrate 30 mg 30 mg PO DAILY 11/16/21 11/16/21 tablet,extended release 24 hr psyllium husk [Daily Fiber] 1 cap PO BID 11/16/21 11/16/21 torsemide 20 mg tablet 20 mg PO DAILY 11/16/21 11/16/21 triamcinolone acetonide 0.1 % 1 applic topical DAILY 11/16/21 11/16/21 topical cream Previous Rx's Medication Instructions Recorded cephalexin 500 mg capsule 1,000 mg PO BID 10 days #40 caps 04/30/22 Allergies Allergy/AdvReac Type Severity Reaction Status Date / Time lisinopril AdvReac Mild COUGH Verified 11/16/21 11:01 Review of Systems <EDDIE Vallejo - Last Filed: 04/30/22 13:12> Review of Systems Narrative: Narrative: See HPI. GENERAL: Denies chills, fatigue, fever, sweats. HEENT: Denies sinus pain, ear pain, sore throat, difficulty swallowing, dizziness. RESPIRATORY: Denies dyspnea, cough, wheezing, sputum. CARDIOVASCULAR: Denies chest pain, palpitations. Endorses chronic lower extremity edema. GASTROINTESTINAL: Denies nausea, vomiting, abdominal pain, diarrhea, constipation. : Denies dysuria, frequency, incontinence, hematuria, urinary retention, flank pain. MSK: Denies weakness, joint pain, or bony pain. SKIN: Denies rash, skin lesions, or pruritis. Endorses 3.5 cm v-shaped avulsion laceration of his left anterior jin. NEUROLOGIC: Denies weakness, dizziness, headache, numbness, confusion. PSYCHIATRIC: No concerning psychosocial issues. Patient History <EDDIE Vallejo - Last Filed: 04/30/22 13:12> Medical History Atrial fibrillation Cataracts, bilateral Chickenpox (~195) Congestive heart failure (~2021) Diabetes (~1991) Drug toxicity Hemorrhoids Measles (~1951) Myocardial infarct (~1991) Tinnitus Water retention Surgical History Anesthesia H/O heart artery stent (~2010) Hx of cataract surgery S/P triple vessel bypass Family History Son Myocardial infarction Hypertension Heart disease Mother Myocardial infarction Father Diabetes mellitus Heart disease Social History marital status: number of children: 2 (1 DAUGHTER (LIVING), SON () ) household members: children (DAUGHTER VISITS ) lives independently: Yes caregiver/support person: No pets and animals: No education level: high school occupational status: other (RETIRED [employer] ) leisure activities: other (GARDENING/YARD WORK) seatbelt use: always water heater temp set < 120 deg: Yes working smoke detector in home: Yes fire extinguisher in home: Yes carbon monox detector in home: Yes do you feel safe at home: Yes Smoking Status: Former smoker Tobacco: How many years used: 35 alcohol intake: former (Quit 1984) substance use type: does not use during the past year weight has: decreased > 10 lbs (30LBS OVER 6-7 MONTHS ) well-balanced diet: about half the time daily servings fruits/ve-4 caffeine: Yes (1-2) eating out: 1-3 times/week Type(s) of exercise: regular exercise frequency: 3-4 times per week duration: 30-45 minutes/day additional social history: enjoys gardening Smoking Status: Former smoker alcohol intake frequency: 0-2 drinks per day Substance Use Type: does not use Exam <EDDIE Vallejo - Last Filed: 04/30/22 13:12> Narrative Exam Narrative: Exam Narrative: GENERAL: This is a well-nourished, well-developed patient, in no acute distress. HEAD: Atraumatic. Normocephalic. EYES: Pupils equal round and reactive. No scleral icterus, injection or drainage. ENT: Nose without bleeding, purulent drainage. Airway patent. NECK: Trachea midline. No JVD. RESPIRATORY: Normal respiratory rate and effort. MSK: Moves all extremities. Normal range of motion, no clubbing or edema. Neurovascularly intact. NEURO: A&O x 3. SKIN: Warm, dry, no rashes or lesions noted. 3.5 cm v-shaped avulsion laceration of left anterior jin. No active bleeding. Thorough investigation with light, magnifying lens and Q-tips revealed no foreign bodies. Site has healed up enough and there is enough swelling in his lower extremity, that closure with Steri-Strips is not possible. Site was dressed with antibiotic ointment and a bandage. Initial Vital Signs Initial Vital Signs: Vital Signs Temperature 98 F 04/30/22 10:39 Pulse Rate 65 04/30/22 10:39 Respiratory Rate 18 04/30/22 10:39 Blood Pressure 136/63 04/30/22 10:39 Pulse Oximetry 95 04/30/22 10:39 Oxygen Delivery Method Room Air 04/30/22 10:39 Reviewed <Natalia Kohler DO - Last Filed: 05/05/22 07:43> Initial Vital Signs Initial Vital Signs: Vital Signs Temperature 98 F 04/30/22 10:39 Pulse Rate 65 04/30/22 10:39 Respiratory Rate 18 04/30/22 10:39 Blood Pressure 136/63 04/30/22 10:39 Pulse Oximetry 95 04/30/22 10:39 Oxygen Delivery Method Room Air 04/30/22 10:39 Course <EDDIE Vallejo - Last Filed: 04/30/22 13:12> Orders Ordered: Discontinued Medications Bacitracin (Bacitracin Oint 0.9 Gm Pckt) 1 applic TOP NOW ONE Stop: 04/30/22 12:41 Last Admin: 04/30/22 13:09 Dose: Not Given Documented By: PACO Vital Signs Vital signs: Vital Signs - 8 hr 04/30/22 10:39 Temperature 98 F Pulse Rate 65 Respiratory Rate 18 Blood Pressure 136/63 Pulse Oximetry 95 Oxygen Delivery Method Room Air <Natalia Kohler DO - Last Filed: 05/05/22 07:43> Orders Ordered: Discontinued Medications Bacitracin (Bacitracin Oint 0.9 Gm Pckt) 1 applic TOP NOW ONE Stop: 04/30/22 12:41 Last Admin: 04/30/22 13:09 Dose: Not Given Documented By: PACO Vital Signs Vital signs: Vital Signs - 8 hr 04/30/22 10:39 Temperature 98 F Pulse Rate 65 Respiratory Rate 18 Blood Pressure 136/63 Pulse Oximetry 95 Oxygen Delivery Method Room Air MDM - Wound/Laceration <Jluis AlvarezEDDIE - Last Filed: 04/30/22 13:12> Differential Diagnosis Differential diagnosis: Likely laceration and avulsion of skin MDM Narrative Medical decision making narrative: 81-year-old male, diabetic, presents to the emergency department with an avulsion laceration to left anterior jin that occurred 2 days ago. Assessment was encouraging with no signs of infection, but closure was not possible at this time. Site was dressed with antibiotic ointment and bandage. Will place patient on prophylactic antibiotics, secondary to his diabetes. Discussed proper wound care with patient and daughter, who verbalized understanding and were agreeable with course of action. Discharge Plan Departure Patient Disposition: Home Clinical Impression: Avulsion of skin Instructions: DI for Puncture Wound, DI for Wound Infection Activity Restrictions/Additional Instructions: *You have been diagnosed with skin avulsion of the left jin. There is not enough skin left for closure. Typically, we like to close lacerations with sutures within 24 hours of the injury. Please present to the emergency department sooner after such an injury. Please apply antibiotic ointment daily and keep the site is clean and dry as possible. Please watch for signs of infection, and return to the emergency department or follow up with your family doctor if symptoms worsen. Due to your diabetes, I am going to place you on antibiotics prophylactically to ensure there is no infection. *What to do: *Please continue to take your regular medications as directed. [x ] New medication prescriptions sent to your pharmacy: [[facility]] [ ] New medication written as a paper prescription [ ] No new medications given *Please follow up with your primary care provider in 2-3 days, call for an appointment. Let them know you were seen in the Emergency Department and that we ask that you be seen in follow up. We will electronically transmit a record of today's note if your PCP is in our system *If you do not have a primary care provider please contact the [facility] Resource line at [phone]. They will ask some questions about your medical history and help get you set up with a doctor in the community. ? Return to ER if you should have any new, worsening or concerning symptoms, such as worsening pain, severe headache, confusion, chest pain, difficulty breathing, fever greater than 101 F, shaking chills, persistent vomiting to the point that you cannot drink fluids, or other new or worsening symptoms. Prescriptions: New cephalexin 500 mg capsule 1,000 mg PO BID 10 Days Qty: 40 0RF No Action Eliquis 5 mg tablet 5 mg PO BID atorvastatin 80 mg tablet 80 mg PO BEDTIME Trulicity 1.5 mg/0.5 mL pen injector 1.5 mg SUBCUT Patient Comments: INJECT 0.5 ML (1.5MG) SUBCUTANEOSULY ONCE WEEKLY IN ABDOMEN, THIGH, OR UPPER ARM isosorbide mononitrate 30 mg tablet extended release 24 hr 30 mg PO DAILY torsemide 20 mg tablet 20 mg PO DAILY carvedilol 6.25 mg tablet 6.25 mg PO BID Patient Comments: TAKE 1 TABLET (6.25MG) BY MOUTH 2 TIMES A DAY WITH MEALS Jardiance 25 mg tablet 25 mg PO DAILY amoxicillin 500 mg tablet 500 mg PO TID Patient Comments: Starting 11/16/21 ending 11/23/21 due to tooth pulled chlorhexidine gluconate 0.12 % mouthwash 15 ml PO BID Patient Comments: RINSE, SWISH AND SPIT WITH 15 MLS TWO TIMES DAILY insulin glargine [Lantus Solostar U-100 Insulin] 100 unit/mL (3 mL) insulin pen See Rx Instructions SUBCUT .COMPLEX Rx Instructions: 30-35 units based on glucose readings subcutaneously; insulin aspart U-100 100 unit/mL (3 mL) insulin pen 1 sliding scale dose SUBCUT Patient Comments: Pt varies insulin qty based on BG levels. Rx Instructions: Inject 12 units subcutaneously 3 times daily with meals for diabetes. (DME) OneTouch Ultra Test Strip See Rx Instructions .ROUTE .MEDSUPPLY Qty: 10 Rx Instructions: As directed Glucagon Emergency Kit (human) 1 mg recon soln 1 mg IM Patient Comments: Inject for emergency situation if found unconscious, call 911, once awake then try to give oral treatment. triamcinolone acetonide 0.1 % cream 1 applic topical DAILY cholecalciferol (vitamin D3) 250 mcg (10,000 unit) capsule 250 mcg PO DAILY cyanocobalamin (vitamin B-12) 250 mcg tablet 250 mcg PO DAILY psyllium husk [Daily Fiber] 1 cap PO BID Balance of Nature PO DAILY Patient Comments: OTC fruits and veggies supplement acetaminophen 325 mg tablet 325 mg PO BID PRN Referrals: Raissa Bennett DO [Primary Care Provider] - Stand Alone Forms: Patient Portal/API <Natalia Kohler DO - Last Filed: 05/05/22 07:43> Cosign ED Attending Deniseature Attestation: I was immediately available in the department for consultation. Documentation has been reviewed.
[2022-04-30 13:11] VITALS: BP 130/60; PULSE 90; RESP 18; O2SAT 98
== END 2022-04-30 13:11 | disposition home or self-care (01) ==
PROVIDERS: Emergency Provider Registered Nurse; Family Provider Family Medicine; PCP Family Medicine
DX: S89.92XA Unspecified injury of left lower leg, initial encounter (principal); Z79.01 Long term (current) use of anticoagulants
CPT/HCPCS: 99282

== ENCOUNTER → 2022-05-05 10:37 | Outpatient (CLI) | payer MEDICARE, OTHER, SELFPAY ==
[2021-05-10 15:58] VITALS: BMI 34.9
[2022-05-05 11:45] LABS: Hemoglobin A1C% w Est Avg Glu 8.8 % (4.0-6.0)
[2022-05-05 11:52] LABS: Alanine Aminotransferase 19 IU/L (<50); Albumin 3.9 g/dL (3.5-5.0); Albumin Globulin Ratio 1.3 (1.0-2.8); Alkaline Phosphatase 114 U/L (38-126); Aspartate Aminotransferase 22 IU/L (17-59); BUN Creatinine Ratio 23.3 (6-22); Bilirubin Total 0.7 mg/dL (0.2-1.3); Blood Urea Nitrogen 45 mg/dL (9-20); Calcium 8.8 mg/dL (8.4-10.2); Carbon Dioxide 25 mmol/L (22-32); Chloride 102 mmol/L (98-107); Cholesterol 115 mg/dL (140-199); Estimated Glomerular Filt Rate 35 mL/min (>60); Glucose 135 mg/dL (80-110); HDL Cholesterol 39 mg/dL (40-60); HEMOLYSIS < 15 (0-50); LDL Cholesterol Calculated 54 mg/dL (<100); Potassium 4.3 mmol/L (3.4-5.1); Sodium 137 mmol/L (137-145); Total Protein 6.9 g/dL (6.3-8.2); Triglycerides 109 mg/dL (35-150)
[2022-05-05 12:01] LABS: Creatinine Urine Random 84.3 mg/dL
[2022-05-05 12:06] LABS: Microalbumi Creatinin Ratio Ur 173.1 ug/mg CR (<30); Microalbumin Urine Random 14.6 mg/dL (0-1.6)
== END ==
PROVIDERS: Family Provider Family Medicine; PCP Family Medicine; Referring Provider Internal Medicine Endocrinology, Diabetes & Metabolism; Visit Provider Internal Medicine Endocrinology, Diabetes & Metabolism
DX: E11.22 Type 2 diabetes mellitus with diabetic chronic kidney disease (principal); N18.31 Chronic kidney disease, stage 3a; Z79.4 Long term (current) use of insulin
CPT/HCPCS: 36415; 80053; 80061; 82043; 82570; 83036

== ENCOUNTER → 2022-06-12 13:33 | Outpatient (CLI) | payer MEDICARE, OTHER, SELFPAY ==
[2021-05-10 15:58] VITALS: BMI 34.9
[2022-06-12 14:47] LABS: Cholesterol 131 mg/dL (140-199); HDL Cholesterol 47 mg/dL (40-60); LDL Cholesterol Calculated 66 mg/dL (<100); Triglycerides 89 mg/dL (35-150)
== END ==
PROVIDERS: Family Provider Family Medicine; PCP Family Medicine; Referring Provider Internal Medicine; Visit Provider Internal Medicine
DX: I25.5 Ischemic cardiomyopathy (principal)
CPT/HCPCS: 36415; 80061

== ENCOUNTER → 2022-08-08 10:05 | Outpatient (CLI) | payer MEDICARE, OTHER, SELFPAY ==
[2021-05-10 15:58] VITALS: BMI 34.9
[2022-08-08 11:07] LABS: Add Manual Diff / Slide Review NO; Basophils Absolute Auto 100 /uL (0-100); Eosinophils Absolute Auto 100 /uL (0-450); Eosinophils Percent Auto 2.2 % (2-4); Hematocrit 43.5 % (41-53); Hemoglobin 14.7 g/dL (13.5-17.5); Lymphocytes Absolute Auto 800 /uL (1100-4500); Lymphocytes Percent Auto 14.5 % (25-40); Mean Corpuscular HGB Conc 33.7 % (30-36); Mean Corpuscular Hemoglobin 31.4 PG (26-34); Mean Corpuscular Volume 93.3 fL (80-100); Monocytes Absolute Auto 700 /uL (0-900); Monocytes Percent Auto 12.5 % (3-14); Neutrophils Absolute Auto 4000 /uL (1500-7000); Neutrophils Percent Auto 69.8 % (50-75); Platelet Count 164 X10^3/uL (150-400); Red Blood Cell Count 4.67 X10^6/uL (4.5-5.9); White Blood Cell Count 5.8 X10^3/uL (4.5-11.0)
[2022-08-08 11:20] LABS: Alanine Aminotransferase 23 IU/L (<50); Albumin 3.9 g/dL (3.5-5.0); Albumin Globulin Ratio 1.4 (1.0-2.8); Alkaline Phosphatase 132 U/L (38-126); Aspartate Aminotransferase 27 IU/L (17-59); BUN Creatinine Ratio 22.5 (6-22); Bilirubin Total 0.9 mg/dL (0.2-1.3); Blood Urea Nitrogen 42 mg/dL (9-20); Calcium 9.1 mg/dL (8.4-10.2); Carbon Dioxide 28 mmol/L (22-32); Chloride 100 mmol/L (98-107); Cholesterol 120 mg/dL (140-199); Estimated Glomerular Filt Rate 36 mL/min (>60); Globulin 2.8 g/dL (1.7-4.1); Glucose 120 mg/dL (80-110); HDL Cholesterol 39 mg/dL (40-60); HEMOLYSIS 17 (0-50); LDL Cholesterol Calculated 59 mg/dL (<100); Phosphorous 4.5 mg/dL (2.3-3.7); Potassium 4.5 mmol/L (3.4-5.1); Sodium 137 mmol/L (137-145); Total Protein 6.7 g/dL (6.3-8.2); Triglycerides 111 mg/dL (35-150)
[2022-08-08 16:31] LABS: Creatinine Urine Random 74.7 mg/dL
[2022-08-08 16:32] LABS: Microalbumi Creatinin Ratio Ur 227.5 ug/mg CR (<30)
[2022-08-09 03:15] LABS: Labcorp Hemoglobin (Hb) A1c 7.9 % (4.8-5.6)
== END ==
PROVIDERS: Family Provider Family Medicine; PCP Family Medicine; Referring Provider Internal Medicine Nephrology; Visit Provider Internal Medicine Nephrology
DX: E11.22 Type 2 diabetes mellitus with diabetic chronic kidney disease (principal); N18.32 Chronic kidney disease, stage 3b; Z79.4 Long term (current) use of insulin
CPT/HCPCS: 36415; 80053; 80061; 80069; 82043; 82570; 83036; 85025

== ENCOUNTER 2022-09-05 16:54 | Emergency (ER) | payer MEDICARE, OTHER, SELFPAY ==
[2021-05-10 15:58] VITALS: BMI 34.9
[2022-09-05 16:57] VITALS: BP 139/67; PULSE 62; RESP 16; TEMP 37.2; O2SAT 95; BMI 33.2
--- NOTE | 2022-09-05 17:08 | DI.RAD.S_ITS ---
PROCEDURE: XR TIBIA FIBULA LT 2V INDICATIONS: laceration to L jin using chainsaw TECHNIQUE: 2 views of the tibia and fibula were acquired. COMPARISON: None. FINDINGS: Bones: No fractures or dislocations. No suspicious bony lesions. Degenerative changes of the knee. Soft tissues: No suspicious soft tissue calcifications or masses. Atherosclerotic calcifications of the visualized arteries. IMPRESSION: No acute osseous abnormality. No radiopaque foreign bodies. Dictated by: Addison Mensah M.D. on 09/05/2022 at 18:16 Approved by: Addison Mensah M.D. on 09/05/2022 at 18:17
[2022-09-05] MEDS: TET,DIPH,PERTUSS(ACELL),VAC/PF 0.5 ML SYRINGE IM (18:00)
[2022-09-05 18:02] VITALS: BP 137/61; PULSE 62; RESP 20; O2SAT 96
--- NOTE | 2022-09-05 18:10 | PC.NURSE ---
Pt was out cutting wood with a chainsaw. A piece of wood kicked back and hit leg, cutting it open. States there was a small nub where a branch had broken off that scratched/punctured his leg.
[2022-09-05] MEDS: ACETAMINOPHEN 325 MG TABLET 650 MG PO (18:14)
[2022-09-05] MEDS: LIDOCAINE 2% W/EPI INJ 20 ML INJ (18:15)
--- NOTE | 2022-09-05 19:00 | ED.WOUNDLAC ---
HPI - Wound/Laceration <Monica Schumacher, [facility] - Last Filed: 09/05/22 19:07> General Chief Complaint: Wound/Laceration Stated Complaint: LT LEG INJ/LAC Time Seen by Provider: 09/05/22 18:01 History of Present Illness HPI narrative: 82-year-old male who presents emergency department with a laceration to his left lower extremity after he was cutting some firewood and states that the log fell forward and a part of the long cut him along the anterior of his lower leg. He is anticoagulated on apixaban for atrial fibrillation, CHF, states that he has a history of diabetes as well. Does not remember when his last tetanus vaccination was. Has bleeding of the left lower leg, pressure dressing was applied and patient's neighbor drove him to the emergency department. Denies weakness, lightheadedness, denies severe pain denies any for pain medication. Related Data Home Medications Medication Instructions Recorded Confirmed Balance of Nature PO DAILY 11/16/21 acetaminophen 325 mg tablet 325 mg PO BID PRN 11/16/21 11/16/21 amoxicillin 500 mg tablet 500 mg PO TID 11/16/21 11/16/21 apixaban 5 mg tablet (Eliquis) 5 mg PO BID 11/16/21 11/16/21 atorvastatin 80 mg tablet 80 mg PO BEDTIME 11/16/21 11/16/21 blood sugar diagnostic (OneTouch #10 ea 11/16/21 11/16/21 Ultra Test strips) carvedilol 6.25 mg tablet 6.25 mg PO BID 11/16/21 11/16/21 chlorhexidine gluconate 0.12 % 15 ml PO BID 11/16/21 11/16/21 mouthwash cholecalciferol (vitamin D3) 250 250 mcg PO DAILY 11/16/21 11/16/21 mcg (10,000 unit) capsule cyanocobalamin (vitamin B-12) 250 250 mcg PO DAILY 11/16/21 11/16/21 mcg tablet dulaglutide 1.5 mg/0.5 mL 1.5 mg SUBCUT 11/16/21 11/16/21 subcutaneous pen injector (Trulicity) empagliflozin 25 mg tablet 25 mg PO DAILY 11/16/21 11/16/21 (Jardiance) glucagon 1 mg solution for 1 mg IM 11/16/21 11/16/21 injection (Glucagon Emergency Kit) insulin aspart U-100 100 unit/mL 1 sliding scale dose SUBCUT 11/16/21 11/16/21 (3 mL) subcutaneous pen insulin glargine 100 unit/mL (3 See Rx Instructions SUBCUT .COMPLEX 11/16/21 11/16/21 mL) subcutaneous pen (Lantus Solostar U-100 Insulin) isosorbide mononitrate 30 mg 30 mg PO DAILY 11/16/21 11/16/21 tablet,extended release 24 hr psyllium husk [Daily Fiber] 1 cap PO BID 11/16/21 11/16/21 torsemide 20 mg tablet 20 mg PO DAILY 11/16/21 11/16/21 triamcinolone acetonide 0.1 % 1 applic topical DAILY 11/16/21 11/16/21 topical cream Previous Rx's Medication Instructions Recorded cephalexin 500 mg capsule 500 mg PO TID 7 days #21 caps 09/05/22 mupirocin 2 % topical ointment 1 applic topical DAILY #22 grams 09/05/22 Allergies Allergy/AdvReac Type Severity Reaction Status Date / Time lisinopril AdvReac Mild COUGH Verified 11/16/21 11:01 Review of Systems <EDDIE Miranda - Last Filed: 09/05/22 19:07> Review of Systems ROS Unobtainable: All systems reviewed & are unremarkable except as noted in HPI and below Patient History <EDDIE Miranda - Last Filed: 09/05/22 19:07> Medical History Atrial fibrillation Cataracts, bilateral Chickenpox (~1951) Congestive heart failure (~2021) Diabetes (~1991) Drug toxicity Hemorrhoids Measles (~1951) Myocardial infarct (~1991) Tinnitus Water retention Surgical History Anesthesia H/O heart artery stent (~2010) Hx of cataract surgery S/P triple vessel bypass Family History Son Myocardial infarction Hypertension Heart disease Mother Myocardial infarction Father Diabetes mellitus Heart disease Social History marital status: number of children: 2 (1 DAUGHTER (LIVING), SON () ) household members: children (DAUGHTER VISITS ) lives independently: Yes caregiver/support person: No pets and animals: No education level: high school 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) seatbelt use: always water heater temp set < 120 deg: Yes working smoke detector in home: Yes fire extinguisher in home: Yes carbon monox detector in home: Yes do you feel safe at home: Yes Smoking Status: Former smoker Tobacco: How many years used: 35 alcohol intake: former (Quit 1984) substance use type: does not use during the past year weight has: decreased > 10 lbs (30LBS OVER 6-7 MONTHS ) well-balanced diet: about half the time daily servings fruits/ve-4 caffeine: Yes (1-2) eating out: 1-3 times/week Type(s) of exercise: regular exercise frequency: 3-4 times per week duration: 30-45 minutes/day additional social history: enjoys gardening Smoking Status: Former smoker alcohol intake frequency: 0-2 drinks per day Substance Use Type: does not use Exam <EDDIE Miranda - Last Filed: 09/05/22 19:07> Narrative Exam Narrative: Reviewed vitals signs and nursing notes. General: Pleasant, sitting upright, in no acute distress, well groomed, afebrile HEENT: symmetrical facial expressions, moist mucous membranes, neck is supple MSK: moves all extremities, no weakness, normal tone, ambulatory without deficit Skin: brisk capillary refill, wound anterior left lower extremity, laceration is approximately 15 cm x 4 cm, mild oozing of blood, wound was thoroughly irrigated with normal saline, some mild edema medial to the wound, no fluctuance, no palpable foreign body, bleeding is controlled without evidence of tendon or ligamental injury, no vascular injury visible Neuro: clear speech and normal cognition, A&O x3, GCS 15, no focal motor or sensation deficits Initial Vital Signs Initial Vital Signs: Vital Signs Temperature 98.9 F 09/05/22 16:57 Pulse Rate 62 09/05/22 16:57 Respiratory Rate 16 09/05/22 16:57 Blood Pressure 139/67 09/05/22 16:57 Pulse Oximetry 95 09/05/22 16:57 Oxygen Delivery Method Room Air 09/05/22 16:57 <Jluis Bauer DO - Last Filed: 09/05/22 19:14> Initial Vital Signs Initial Vital Signs: Vital Signs Temperature 98.9 F 09/05/22 16:57 Pulse Rate 62 09/05/22 16:57 Respiratory Rate 16 09/05/22 16:57 Blood Pressure 139/67 09/05/22 16:57 Pulse Oximetry 95 09/05/22 16:57 Oxygen Delivery Method Room Air 09/05/22 16:57 Procedures <EDDIE Miranda - Last Filed: 09/05/22 19:07> Laceration Repair Laceration 1: Site: lower extremity Side (If applicable): left Size (cm): 14 Description: linear and irregular Depth: simple, single layer Local Anesthetic: lidocaine 2% and with epi Amount of anesthesia used (mL): 6 Pre-repair: wound explored, irrigated extensively, deep structures intact and wound margins revised Skin layer closed with: nylon Skin layer suture size: 5-0 Number of sutures: 16 Technique: simple, interrupted and horizontal mattress Course <EDDIE Miranda - Last Filed: 09/05/22 19:07> Orders Ordered: ED Orders 09/05/22 17:08 XR tibia fibula LT 2V Stat Discontinued Medications Acetaminophen (Acetaminophen 325 Mg Tablet) 650 mg PO NOW ONE Stop: 09/05/22 18:03 Last Admin: 09/05/22 18:14 Dose: 650 mg Documented By: EDUAR Diphtheria/Tetanus/Acell Pertussis (Tet,Diph,Pertuss(Acell),Vac/Pf 0.5 Ml Syringe) 0.5 ml IM .ONCE ONE Stop: 09/05/22 17:16 Last Admin: 09/05/22 18:00 Dose: 0.5 ml Documented By: EDUAR Lidocaine/Epinephrine (Lidocaine 2% W/Epi Inj) 20 ml INJ INTRA-OP ONE Stop: 09/05/22 18:02 Last Admin: 09/05/22 18:15 Dose: 6 ml Documented By: EDUAR Vital Signs Vital signs: Vital Signs - 8 hr 09/05/22 16:57 09/05/22 18:02 09/05/22 19:10 Temperature 98.9 F Pulse Rate 62 62 55 L Respiratory Rate 16 20 16 Blood Pressure 139/67 137/61 163/57 H Pulse Oximetry 95 96 97 Oxygen Delivery Method Room Air Room Air <Jluis Bauer DO - Last Filed: 09/05/22 19:14> Orders Ordered: ED Orders 09/05/22 17:08 XR tibia fibula LT 2V Stat Discontinued Medications Acetaminophen (Acetaminophen 325 Mg Tablet) 650 mg PO NOW ONE Stop: 09/05/22 18:03 Last Admin: 09/05/22 18:14 Dose: 650 mg Documented By: EDUAR Diphtheria/Tetanus/Acell Pertussis (Tet,Diph,Pertuss(Acell),Vac/Pf 0.5 Ml Syringe) 0.5 ml IM .ONCE ONE Stop: 09/05/22 17:16 Last Admin: 09/05/22 18:00 Dose: 0.5 ml Documented By: EDUAR Lidocaine/Epinephrine (Lidocaine 2% W/Epi Inj) 20 ml INJ INTRA-OP ONE Stop: 09/05/22 18:02 Last Admin: 09/05/22 18:15 Dose: 6 ml Documented By: EDUAR Vital Signs Vital signs: Vital Signs - 8 hr 09/05/22 16:57 09/05/22 18:02 09/05/22 19:10 Temperature 98.9 F Pulse Rate 62 62 55 L Respiratory Rate 16 20 16 Blood Pressure 139/67 137/61 163/57 H Pulse Oximetry 95 96 97 Oxygen Delivery Method Room Air Room Air MDM - Wound/Laceration <EDDIE Miranda - Last Filed: 09/05/22 19:07> Imaging Data Extremity x-ray #1: Radiologist's Impression: [address] [address] XRay Report Signed Patient: Mateus Chu MR#: [id number] : 1940 Acct:[id number] Age/Sex: 82 / M Date of Service: 09/05/22 Loc: ED Accession Number: [id number] ?? Procedure: XR tibia fibula LT 2V Ordering Provider: Kathy Sorensen D.O. PROCEDURE:? XR TIBIA FIBULA LT 2V ? INDICATIONS:? laceration to L jin using chainsaw ? TECHNIQUE:? 2 views of the tibia and fibula were acquired.? ? COMPARISON:? None. ? FINDINGS:? ? Bones:? No fractures or dislocations.? No suspicious bony lesions.? Degenerative changes of the knee. ? Soft tissues:? No suspicious soft tissue calcifications or masses.? Atherosclerotic calcifications of the visualized arteries. ? IMPRESSION:? No acute osseous abnormality.? No radiopaque foreign bodies. ? ? Dictated by: Addison Mensah M.D. on 09/05/2022 at 18:16 ? ? Approved by: Addison Mensah M.D. on 09/05/2022 at 18:17 ? MDM Narrative Medical decision making narrative: Chief Complaint: Left lower extremity laceration Multiple etiologies for patient's complaint considered including, but not limited to: Skin laceration, foreign body, vascular injury, tendon injury, ligamental injury, infection I have independently reviewed the patient's vital signs and nursing notes as well as prior records if available. Plan: Patient's leg has a large laceration, bleeding was controlled with pressure, thorough irrigation with normal saline was completed and there were no foreign bodies or foreign debris. Wound closure with good wound edge approximation using 16 nylon sutures both horizontal mattress and simple sutures for tension. Patient's tetanus was updated today, he denied the need for pain medication, Xeroform was applied after suture repair, wound was hemostatic, a Telfa and a gauze wrap dressing was applied. Patient tolerated well. Infection prophylaxis with cephalexin and mupirocin ointment, patient tolerated his pain well. Recommend suture removal in 10 days, return to the emergency department for new or worsening symptoms, follow-up with primary care for suture removal. Social considerations that may affect disposition: none Questions are addressed and there is agreement with the plan and for follow-up. I consulted with the ED attending physician Dr. Bauer as needed for higher level of care considerations and they were available for discussion and recommendations regarding plan of care and diagnostic testing. Patient is appropriate for outpatient management. Discharge Plan Departure Patient Disposition: Home Clinical Impression: Laceration, History of anticoagulant use, History of diabetes mellitus Instructions: How to Care for a Laceration After Repair, DI for Laceration Repair Activity Restrictions/Additional Instructions: Thank you for coming in for evaluation, you have a large laceration to your left lower leg, this is closed with nylon sutures that are non dissolvable, you have 16 of them. Some of them are horizontal mattress sutures ( 2 loops) and the rest are simple sutures (single loop). Please have these removed in [address] Bennett or at the walk-in clinic. Apply topical antibiotic ointment daily and you may take the dressing off and shower like usual. Apply a nonstick dressing. Return for new or worsening symptoms. If you develop any redness or streaking up your leg, worsening pain or swelling out of proportion. *Please continue to take your regular medications as directed. [x ] New medication prescriptions sent to your pharmacy: [facility]] [ ] New medication written as a paper prescription [ ] No new medications given *Please call and schedule follow up with your primary care provider in 2-3 days, at least for an update. Let them know you were seen in the Emergency Department for the above problem. We will electronically transmit a record of today's note if your PCP or specialist is in our system. *If you do not have a primary care provider please contact [phone] to establish care with one of the [facility] primary care providers. *Return to the Emergency Department for worsening symptoms, inability to keep liquids down, fever greater than 101F, chills, or other concerning symptom. Prescriptions: New cephalexin 500 mg capsule 500 mg PO TID 7 Days Qty: 21 0RF mupirocin 2 % ointment 1 applic topical DAILY Qty: 22 0RF No Action Eliquis 5 mg tablet 5 mg PO BID atorvastatin 80 mg tablet 80 mg PO BEDTIME Trulicity 1.5 mg/0.5 mL pen injector 1.5 mg SUBCUT Patient Comments: INJECT 0.5 ML (1.5MG) SUBCUTANEOSULY ONCE WEEKLY IN ABDOMEN, THIGH, OR UPPER ARM isosorbide mononitrate 30 mg tablet extended release 24 hr 30 mg PO DAILY torsemide 20 mg tablet 20 mg PO DAILY carvedilol 6.25 mg tablet 6.25 mg PO BID Patient Comments: TAKE 1 TABLET (6.25MG) BY MOUTH 2 TIMES A DAY WITH MEALS Jardiance 25 mg tablet 25 mg PO DAILY amoxicillin 500 mg tablet 500 mg PO TID Patient Comments: Starting 11/16/21 ending 11/23/21 due to tooth pulled chlorhexidine gluconate 0.12 % mouthwash 15 ml PO BID Patient Comments: RINSE, SWISH AND SPIT WITH 15 MLS TWO TIMES DAILY insulin glargine [Lantus Solostar U-100 Insulin] 100 unit/mL (3 mL) insulin pen See Rx Instructions SUBCUT .COMPLEX Rx Instructions: 30-35 units based on glucose readings subcutaneously; insulin aspart U-100 100 unit/mL (3 mL) insulin pen 1 sliding scale dose SUBCUT Patient Comments: Pt varies insulin qty based on BG levels. Rx Instructions: Inject 12 units subcutaneously 3 times daily with meals for diabetes. (DME) OneTouch Ultra Test Strip See Rx Instructions .ROUTE .MEDSUPPLY Qty: 10 Rx Instructions: As directed Glucagon Emergency Kit (human) 1 mg recon soln 1 mg IM Patient Comments: Inject for emergency situation if found unconscious, call 911, once awake then try to give oral treatment. triamcinolone acetonide 0.1 % cream 1 applic topical DAILY cholecalciferol (vitamin D3) 250 mcg (10,000 unit) capsule 250 mcg PO DAILY cyanocobalamin (vitamin B-12) 250 mcg tablet 250 mcg PO DAILY psyllium husk [Daily Fiber] 1 cap PO BID Balance of Nature PO DAILY Patient Comments: OTC fruits and veggies supplement acetaminophen 325 mg tablet 325 mg PO BID PRN Referrals: Raissa Bennett DO [Primary Care Provider] - Stand Alone Forms: Patient Portal/API <Jluis Bauer DO - Last Filed: 09/05/22 19:14> Cosign ED Attending Cosignature Attestation: Dr Bauer Co-Sign Statement: I was available for consultation during this patient's emergency department visit. This chart is signed by myself for administrative purposes only. I did not have direct contact with this patient during this visit. They were seen independently by the APC.
[2022-09-05 19:10] VITALS: BP 163/57; PULSE 55; RESP 16; O2SAT 97
== END 2022-09-05 19:09 | disposition home or self-care (01) ==
PROVIDERS: Emergency Provider Nurse Practitioner Critical Care Medicine; Family Provider Family Medicine; PCP Family Medicine
DX: S81.812A Laceration without foreign body, left lower leg, initial encounter (principal); Z79.01 Long term (current) use of anticoagulants; W18.00XA Striking against unspecified object with subsequent fall, initial encounter; E11.9 Type 2 diabetes mellitus without complications; Z23 Encounter for immunization
CPT/HCPCS: 12005; 73590; 82962; 90471; 99283; 99284; 90715

== ENCOUNTER → 2022-10-03 14:11 | Outpatient (CLI) | payer MEDICARE, OTHER, SELFPAY ==
[2021-05-10 15:58] VITALS: BMI 34.9
--- NOTE | 2022-10-03 14:12 | DI.US.S_ITS ---
PROCEDURE: US EXTREMITY NONVASC LOWER LT INDICATIONS: LEFT QUEVEDO LESIONS - RULE OUT ABSCESS TECHNIQUE: Real-time scanning was performed of the left lower leg, with image documentation. COMPARISON: None. FINDINGS: Focused ultrasound examination along anterolateral aspect of distal lower leg soft tissue shows a heterogeneously hypoechoic area with internal mixed solid and cystic areas and small amount of internal vascularity. This area measures up to 6 x 6 x 1.2 cm in size. IMPRESSION: Finding may represent organizing hematoma in left lower leg soft tissue. Cystic neoplasm cannot be excluded. Overall appearance is not typical for abscess collection. Dictated by: Yves Foster M.D. on 10/03/2022 at 21:45 Approved by: Yves Foster M.D. on 10/03/2022 at 21:47
== END ==
PROVIDERS: Family Provider Family Medicine; PCP Family Medicine; Referring Provider Family Medicine; Visit Provider Family Medicine
DX: L02.91 Cutaneous abscess, unspecified (principal); E11.9 Type 2 diabetes mellitus without complications
CPT/HCPCS: 76882

== ENCOUNTER → 2022-12-29 10:26 | Outpatient (CLI) | payer MEDICARE, OTHER, SELFPAY ==
[2021-05-10 15:58] VITALS: BMI 34.9
[2022-12-29 12:30] LABS: Alanine Aminotransferase 21 IU/L (<50); Albumin 3.9 g/dL (3.5-5.0); Albumin Globulin Ratio 1.3 (1.0-2.8); Alkaline Phosphatase 130 U/L (38-126); Aspartate Aminotransferase 26 IU/L (17-59); BUN Creatinine Ratio 20.9 (6-22); Bilirubin Total 0.7 mg/dL (0.2-1.3); Blood Urea Nitrogen 37 mg/dL (9-20); Calcium 9.4 mg/dL (8.4-10.2); Carbon Dioxide 25 mmol/L (22-32); Chloride 104 mmol/L (98-107); Cholesterol 119 mg/dL (140-199); Estimated Glomerular Filt Rate 38 mL/min (>60); Globulin 2.9 g/dL (1.7-4.1); Glucose 88 mg/dL (80-110); HDL Cholesterol 39 mg/dL (40-60); HEMOLYSIS < 15 (0-50); LDL Cholesterol Calculated 60 mg/dL (<100); Potassium 4.4 mmol/L (3.4-5.1); Sodium 137 mmol/L (137-145); Total Protein 6.8 g/dL (6.3-8.2); Triglycerides 102 mg/dL (35-150)
[2022-12-29 15:47] LABS: Creatinine Urine Random 91.6 mg/dL
[2022-12-29 16:09] LABS: Microalbumi Creatinin Ratio Ur 402.8 ug/mg CR (<30); Microalbumin Urine Random 36.9 mg/dL (0-1.6)
== END ==
PROVIDERS: Family Provider Family Medicine; PCP Family Medicine; Referring Provider Internal Medicine Endocrinology, Diabetes & Metabolism; Visit Provider Internal Medicine Endocrinology, Diabetes & Metabolism
DX: E11.22 Type 2 diabetes mellitus with diabetic chronic kidney disease (principal); N18.32 Chronic kidney disease, stage 3b; Z79.4 Long term (current) use of insulin
CPT/HCPCS: 36415; 80053; 80061; 82043; 82570; 83036

== ENCOUNTER → 2023-02-15 13:47 | Outpatient (CLI) | payer MEDICARE, OTHER, SELFPAY ==
[2021-05-10 15:58] VITALS: BMI 34.9
[2023-02-15 14:50] LABS: Add Manual Diff / Slide Review NO; Basophils Absolute Auto 100 /uL (0-100); Basophils Percent Auto 1.1 % (0-2); Eosinophils Absolute Auto 200 /uL (0-450); Eosinophils Percent Auto 2.9 % (2-4); Hematocrit 47.1 % (41-53); Hemoglobin 15.9 g/dL (13.5-17.5); Lymphocytes Absolute Auto 1000 /uL (1100-4500); Lymphocytes Percent Auto 13.8 % (25-40); Mean Corpuscular HGB Conc 33.7 % (30-36); Mean Corpuscular Hemoglobin 32.9 PG (26-34); Mean Corpuscular Volume 97.5 fL (80-100); Monocytes Absolute Auto 1000 /uL (0-900); Monocytes Percent Auto 12.8 % (3-14); Neutrophils Absolute Auto 5200 /uL (1500-7000); Neutrophils Percent Auto 69.4 % (50-75); Platelet Count 167 X10^3/uL (150-400); Red Blood Cell Count 4.83 X10^6/uL (4.5-5.9); Red Cell Distribution Width 15.5 % (11.6-14.8); White Blood Cell Count 7.5 X10^3/uL (4.5-11.0)
[2023-02-15 14:53] LABS: Albumin 3.9 g/dL (3.5-5.0); BUN Creatinine Ratio 24.4 (6-22); Blood Urea Nitrogen 44 mg/dL (9-20); Calcium 9.4 mg/dL (8.4-10.2); Carbon Dioxide 26 mmol/L (22-32); Chloride 103 mmol/L (98-107); Estimated Glomerular Filt Rate 37 mL/min (>60); Glucose 176 mg/dL (80-110); HEMOLYSIS 18 (0-50); Phosphorous 3.9 mg/dL (2.3-3.7); Potassium 4.5 mmol/L (3.4-5.1); Sodium 135 mmol/L (137-145)
[2023-02-15 15:45] LABS: Creatinine Urine Random 27.1 mg/dL
[2023-02-15 15:49] LABS: Microalbumi Creatinin Ratio Ur 405.9 ug/mg CR (<30)
[2023-02-15 16:12] LABS: Vitamin D 25 Hydroxy (D3) 75.1 ng/mL (30.0-100.0)
[2023-02-18 09:36] LABS: Parathyroid Hormone Int 55 pg/mL (15-65)
== END ==
PROVIDERS: Family Provider Family Medicine; PCP Family Medicine; Referring Provider Internal Medicine Nephrology; Visit Provider Internal Medicine Nephrology
DX: N18.32 Chronic kidney disease, stage 3b (principal)
CPT/HCPCS: 36415; 80069; 82043; 82306; 82570; 83970; 85025

== ENCOUNTER → 2023-05-18 12:11 | Outpatient (CLI) | payer MEDICARE, OTHER, SELFPAY ==
[2021-05-10 15:58] VITALS: BMI 34.9
[2023-05-18 13:12] LABS: Hemoglobin A1C% w Est Avg Glu 7.6 % (4.0-6.0)
[2023-05-18 13:36] LABS: Alanine Aminotransferase 20 IU/L (<50); Albumin 3.7 g/dL (3.5-5.0); Albumin Globulin Ratio 1.2 (1.0-2.8); Alkaline Phosphatase 107 U/L (38-126); Aspartate Aminotransferase 25 IU/L (17-59); BUN Creatinine Ratio 22.2 (6-22); Bilirubin Total 0.7 mg/dL (0.2-1.3); Blood Urea Nitrogen 37 mg/dL (9-20); Calcium 9.2 mg/dL (8.4-10.2); Carbon Dioxide 23 mmol/L (22-32); Chloride 108 mmol/L (98-107); Cholesterol 114 mg/dL (140-199); Estimated Glomerular Filt Rate 41 mL/min (>60); Glucose 127 mg/dL (80-110); HDL Cholesterol 42 mg/dL (40-60); HEMOLYSIS < 15 (0-50); LDL Cholesterol Calculated 57 mg/dL (<100); Potassium 4.1 mmol/L (3.4-5.1); Sodium 138 mmol/L (137-145); Total Protein 6.7 g/dL (6.3-8.2); Triglycerides 73 mg/dL (35-150)
[2023-05-18 15:24] LABS: Creatinine Urine Random 19.4 mg/dL
[2023-05-18 15:32] LABS: Microalbumi Creatinin Ratio Ur 365.9 ug/mg CR (<30); Microalbumin Urine Random 7.1 mg/dL (0-1.6)
[2023-05-19 04:36] LABS: Fructosamine 276 umol/L (0-285)
== END ==
LOC: LAB 12:14
PROVIDERS: Family Provider Family Medicine; PCP Family Medicine; Referring Provider Internal Medicine Endocrinology, Diabetes & Metabolism; Visit Provider Internal Medicine Endocrinology, Diabetes & Metabolism
DX: E11.22 Type 2 diabetes mellitus with diabetic chronic kidney disease (principal); N18.32 Chronic kidney disease, stage 3b; Z79.4 Long term (current) use of insulin
CPT/HCPCS: 36415; 80053; 80061; 82043; 82570; 82985; 83036

== ENCOUNTER → 2023-08-22 14:17 | Outpatient (CLI) | payer MEDICARE, OTHER, SELFPAY ==
[2021-05-10 15:58] VITALS: BMI 34.9
[2023-08-22 15:05] LABS: Appearance Urine UA CLEAR; Bilirubin Urine UA NEGATIVE (NEGATIVE); Color Urine UA YELLOW; Glucose Urine UA 3+ g/dL (Negative); Hematocrit 46.7 % (41-53); Hemoglobin 15.7 g/dL (13.5-17.5); Ketones Urine UA NEGATIVE (NEGATIVE); Leukocyte Esterase Urine UA NEGATIVE (NEGATIVE); Mean Corpuscular HGB Conc 33.7 % (30-36); Mean Corpuscular Hemoglobin 33.5 PG (26-34); Mean Corpuscular Volume 99.3 fL (80-100); Nitrite Urine UA NEGATIVE (Negative); Occult Blood Urine UA NEGATIVE (Negative); Platelet Count 156 X10^3/uL (150-400); Protein Urine UA NEGATIVE (Negative); Red Cell Distribution Width 14.6 % (11.6-14.8); Urobilinogen Urine UA 0.2 E.U./dL (0.2); White Blood Cell Count 6.7 X10^3/uL (4.5-11.0); pH Urine UA 5.5 (4.5-8.0)
[2023-08-22 15:29] LABS: Bacteria Urine Occasional (0-1); Culture Indicated Urine Cult Not Indicated; RBC Urine None Seen (0-5/HPF); Squamous Epithelial Cell Urine 0-1 /HPF (0-5/HPF); Urine Volume 10mL (spun); WBC Urine None Seen (0-5/HPF)
[2023-08-22 15:50] LABS: HEMOLYSIS < 15 (0-50); Iron 94 ug/dL (49-181)
[2023-08-22 15:55] LABS: Albumin 3.6 g/dL (3.5-5.0); BUN Creatinine Ratio 20.7 (6-22); Blood Urea Nitrogen 41 mg/dL (9-20); Carbon Dioxide 29 mmol/L (22-32); Chloride 104 mmol/L (98-107); Estimated Glomerular Filt Rate 33 mL/min (>60); Glucose 176 mg/dL (80-110); HEMOLYSIS < 15 (0-50); Phosphorous 3.9 mg/dL (2.3-3.7); Potassium 4.7 mmol/L (3.4-5.1); Sodium 137 mmol/L (137-145)
[2023-08-22 16:04] LABS: Percent Iron Saturation 33 % (20-50); Total Iron Binding Capacity 289 ug/dL (261-462); Transferrin 215 mg/dL (206-381)
[2023-08-22 16:29] LABS: Ferritin 57 ng/mL (18-464)
[2023-08-22 16:51] LABS: Creatinine Urine Random 24.61 mg/dL; Protein (Total) Urine Random 25 mg/dL (0-12); Protein Creatinine Ratio Urine 1.01 GRAM/24H
[2023-08-22 17:05] LABS: Vitamin D 25 Hydroxy (D3) 95.9 ng/mL (30.0-100.0)
[2023-08-23 11:36] LABS: Parathyroid Hormone Int 43 pg/mL (15-65)
== END ==
PROVIDERS: Family Provider Family Medicine; PCP Family Medicine; Referring Provider Internal Medicine Nephrology; Visit Provider Internal Medicine Nephrology
DX: I12.9 Hypertensive chronic kidney disease with stage 1 through stage 4 chronic kidney disease, or unspecified chronic kidney disease (principal); N18.32 Chronic kidney disease, stage 3b; I25.10 Atherosclerotic heart disease of native coronary artery without angina pectoris; E11.22 Type 2 diabetes mellitus with diabetic chronic kidney disease; Z79.4 Long term (current) use of insulin
CPT/HCPCS: 36415; 80069; 81001; 82306; 82570; 82728; 83540; 83550; 83970; 84156; 85027

== ENCOUNTER → 2023-09-13 10:34 | Outpatient (CLI) | payer MEDICARE, OTHER, SELFPAY ==
[2021-05-10 15:58] VITALS: BMI 34.9
[2023-09-13 13:05] LABS: BUN Creatinine Ratio 18.1 (6-22); Blood Urea Nitrogen 38 mg/dL (9-20); Calcium 9.1 mg/dL (8.4-10.2); Carbon Dioxide 28 mmol/L (22-32); Chloride 104 mmol/L (98-107); Cholesterol 120 mg/dL (140-199); Estimated Glomerular Filt Rate 31 mL/min (>60); Glucose 178 mg/dL (80-110); HDL Cholesterol 51 mg/dL (40-60); HEMOLYSIS < 15 (0-50); LDL Cholesterol Calculated 52 mg/dL (<100); Potassium 4.6 mmol/L (3.4-5.1); Sodium 139 mmol/L (137-145); Triglycerides 83 mg/dL (35-150)
[2023-09-13 15:34] LABS: Creatinine Urine Random 87.67 mg/dL
[2023-09-13 15:53] LABS: Microalbumin Urine Random 37.4 mg/dL (0-1.6)
[2023-09-14 07:36] LABS: Fructosamine 276 umol/L (0-285)
== END ==
PROVIDERS: Family Provider Family Medicine; PCP Family Medicine; Referring Provider Internal Medicine Endocrinology, Diabetes & Metabolism; Visit Provider Internal Medicine Endocrinology, Diabetes & Metabolism
DX: E11.22 Type 2 diabetes mellitus with diabetic chronic kidney disease (principal); N18.32 Chronic kidney disease, stage 3b; Z79.4 Long term (current) use of insulin
CPT/HCPCS: 36415; 80048; 80061; 82043; 82570; 82985; 83036

== ENCOUNTER → 2023-10-30 11:54 | Outpatient (CLI) | payer MEDICARE, OTHER, SELFPAY ==
[2021-05-10 15:58] VITALS: BMI 34.9
[2023-10-30 14:32] LABS: Appearance Urine UA CLEAR; Bilirubin Urine UA NEGATIVE (NEGATIVE); Color Urine UA YELLOW; Glucose Urine UA 3+ g/dL (Negative); Ketones Urine UA NEGATIVE (NEGATIVE); Leukocyte Esterase Urine UA NEGATIVE (NEGATIVE); Nitrite Urine UA NEGATIVE (Negative); Occult Blood Urine UA NEGATIVE (Negative); Protein Urine UA TRACE (Negative); Specific Gravity Urine UA 1.015 (1.000-1.035); Urobilinogen Urine UA 0.2 E.U./dL (0.2); pH Urine UA 5.5 (4.5-8.0)
[2023-10-30 14:39] LABS: Bacteria Urine None Seen; Culture Indicated Urine Cult Not Indicated; RBC Urine None Seen (0-5/HPF); Squamous Epithelial Cell Urine None Seen (0-5/HPF); Urine Volume 10mL (spun); WBC Urine None Seen (0-5/HPF)
[2023-10-30 16:47] LABS: Creatinine Urine Random 79.55 mg/dL; Protein (Total) Urine Random 44 mg/dL (0-12); Protein Creatinine Ratio Urine 0.55 GRAM/24H
[2023-10-30 17:08] LABS: Microalbumin Urine Random 22.6 mg/dL (0-1.6)
== END ==
PROVIDERS: Family Provider Family Medicine; PCP Family Medicine; Referring Provider Internal Medicine Nephrology; Visit Provider Internal Medicine Nephrology
DX: N18.32 Chronic kidney disease, stage 3b (principal); I25.10 Atherosclerotic heart disease of native coronary artery without angina pectoris; E11.22 Type 2 diabetes mellitus with diabetic chronic kidney disease; I12.9 Hypertensive chronic kidney disease with stage 1 through stage 4 chronic kidney disease, or unspecified chronic kidney disease; Z79.4 Long term (current) use of insulin
CPT/HCPCS: 81001; 82043; 82570; 84156

== ENCOUNTER → 2023-11-23 16:39 | Outpatient (CLI) | payer MEDICARE, OTHER, SELFPAY ==
[2021-05-10 15:58] VITALS: BMI 34.9
[2023-11-23 18:17] LABS: BUN Creatinine Ratio 24.6 (6-22); Blood Urea Nitrogen 48 mg/dL (9-20); Calcium 9.2 mg/dL (8.4-10.2); Carbon Dioxide 23 mmol/L (22-32); Chloride 104 mmol/L (98-107); Estimated Glomerular Filt Rate 34 mL/min (>60); Glucose 183 mg/dL (80-110); HEMOLYSIS 28 (0-50); Potassium 4.2 mmol/L (3.4-5.1); Sodium 134 mmol/L (137-145)
== END ==
PROVIDERS: Family Provider Family Medicine; PCP Family Medicine; Referring Provider Internal Medicine Nephrology; Visit Provider Internal Medicine Nephrology
DX: N18.32 Chronic kidney disease, stage 3b (principal)
CPT/HCPCS: 36415; 80048

== ENCOUNTER → 2024-02-01 11:55 | Outpatient (CLI) | payer MEDICARE, OTHER, SELFPAY ==
[2021-05-10 15:58] VITALS: BMI 34.9
[2024-02-01 14:05] LABS: HEMOLYSIS < 15 (0-50); Iron 151 ug/dL (49-181)
[2024-02-01 14:06] LABS: BUN Creatinine Ratio 31.5 (6-22); Blood Urea Nitrogen 62 mg/dL (9-20); Calcium 9.5 mg/dL (8.4-10.2); Carbon Dioxide 23 mmol/L (22-32); Chloride 106 mmol/L (98-107); Estimated Glomerular Filt Rate 33 mL/min (>60); Glucose 114 mg/dL (80-110); HEMOLYSIS < 15 (0-50); Potassium 4.4 mmol/L (3.4-5.1); Sodium 136 mmol/L (137-145)
[2024-02-01 14:15] LABS: Percent Iron Saturation 60 % (20-50); Total Iron Binding Capacity 250 ug/dL (261-462); Transferrin 227 mg/dL (206-381)
[2024-02-01 14:40] LABS: Ferritin 94 ng/mL (18-464)
[2024-02-01 14:47] LABS: Vitamin D 25 Hydroxy (D3) 60.4 ng/mL (30.0-100.0)
[2024-02-03 11:10] LABS: Parathyroid Hormone Int 45 pg/mL (15-65)
== END ==
PROVIDERS: Family Provider Family Medicine; PCP Family Medicine; Referring Provider Internal Medicine Nephrology; Visit Provider Internal Medicine Nephrology
DX: I12.9 Hypertensive chronic kidney disease with stage 1 through stage 4 chronic kidney disease, or unspecified chronic kidney disease (principal); N18.32 Chronic kidney disease, stage 3b; I25.10 Atherosclerotic heart disease of native coronary artery without angina pectoris; E11.22 Type 2 diabetes mellitus with diabetic chronic kidney disease; Z79.4 Long term (current) use of insulin
CPT/HCPCS: 36415; 80069; 82306; 82728; 83540; 83550; 83970

== ENCOUNTER → 2024-02-09 12:54 | Outpatient (CLI) | payer MEDICARE, OTHER, SELFPAY ==
[2021-05-10 15:58] VITALS: BMI 34.9
[2024-02-09 13:25] LABS: Hemoglobin A1C% w Est Avg Glu 7.5 % (4.0-6.0)
[2024-02-09 14:02] LABS: Blood Urea Nitrogen 55 mg/dL (9-20); Calcium 9.3 mg/dL (8.4-10.2); Carbon Dioxide 25 mmol/L (22-32); Chloride 105 mmol/L (98-107); Cholesterol 126 mg/dL (140-199); Creatinine Urine Random 35.06 mg/dL; Estimated Glomerular Filt Rate 32 mL/min (>60); Glucose 239 mg/dL (80-110); HDL Cholesterol 49 mg/dL (40-60); HEMOLYSIS 44 (0-50); LDL Cholesterol Calculated 48 mg/dL (<100); Potassium 4.7 mmol/L (3.4-5.1); Sodium 135 mmol/L (137-145); Triglycerides 145 mg/dL (35-150)
[2024-02-09 14:08] LABS: Microalbumin Urine Random 8.4 mg/dL (0-1.6)
== END ==
PROVIDERS: Family Provider Family Medicine; PCP Family Medicine; Referring Provider Internal Medicine Endocrinology, Diabetes & Metabolism; Visit Provider Internal Medicine Endocrinology, Diabetes & Metabolism
DX: E11.22 Type 2 diabetes mellitus with diabetic chronic kidney disease (principal); N18.31 Chronic kidney disease, stage 3a; Z79.4 Long term (current) use of insulin
CPT/HCPCS: 36415; 80048; 80061; 82043; 82570; 83036

== ENCOUNTER → 2024-06-16 11:14 | Outpatient (CLI) | payer MEDICARE, OTHER, SELFPAY ==
[2021-05-10 15:58] VITALS: BMI 34.9
[2024-06-16 12:04] LABS: Hemoglobin A1C% w Est Avg Glu 6.9 % (4.0-6.0)
[2024-06-16 12:20] LABS: Creatinine Urine Random 79.51 mg/dL
[2024-06-16 12:23] LABS: BUN Creatinine Ratio 27.3 (6-22); Blood Urea Nitrogen 53 mg/dL (9-20); Calcium 8.9 mg/dL (8.4-10.2); Carbon Dioxide 26 mmol/L (22-32); Chloride 104 mmol/L (98-107); Cholesterol 115 mg/dL (140-199); Estimated Glomerular Filt Rate 34 mL/min (>60); Glucose 218 mg/dL (80-110); HDL Cholesterol 44 mg/dL (40-60); HEMOLYSIS < 15 (0-50); LDL Cholesterol Calculated 47 mg/dL (<100); Potassium 4.6 mmol/L (3.4-5.1); Sodium 136 mmol/L (137-145); Triglycerides 122 mg/dL (35-150)
[2024-06-16 12:41] LABS: Microalbumin Urine Random 27.2 mg/dL (0-1.6)
== END ==
PROVIDERS: Family Provider Family Medicine; PCP Family Medicine; Referring Provider Internal Medicine Endocrinology, Diabetes & Metabolism; Visit Provider Internal Medicine Endocrinology, Diabetes & Metabolism
DX: E11.22 Type 2 diabetes mellitus with diabetic chronic kidney disease (principal); N18.32 Chronic kidney disease, stage 3b; Z79.4 Long term (current) use of insulin
CPT/HCPCS: 36415; 80048; 80061; 82043; 82570; 83036

== ENCOUNTER → 2024-06-20 11:33 | Outpatient (CLI) | payer MEDICARE, OTHER, SELFPAY ==
[2021-05-10 15:58] VITALS: BMI 34.9
[2024-06-20 12:15] LABS: Hematocrit 43.8 % (41-53); Hemoglobin 14.9 g/dL (13.5-17.5); Mean Corpuscular HGB Conc 34.1 % (30-36); Mean Corpuscular Volume 99.6 fL (80-100); Platelet Count 155 X10^3/uL (150-400); Red Blood Cell Count 4.39 X10^6/uL (4.5-5.9); White Blood Cell Count 6.1 X10^3/uL (4.5-11.0)
[2024-06-20 12:31] LABS: Albumin 3.9 g/dL (3.5-5.0); BUN Creatinine Ratio 27.7 (6-22); Blood Urea Nitrogen 54 mg/dL (9-20); Calcium 9.5 mg/dL (8.4-10.2); Carbon Dioxide 21 mmol/L (22-32); Chloride 106 mmol/L (98-107); Estimated Glomerular Filt Rate 34 mL/min (>60); Glucose 169 mg/dL (70-99); HEMOLYSIS < 15 (0-50); Magnesium 2.3 mg/dL (1.6-2.3); Phosphorous 4.9 mg/dL (2.3-3.7); Potassium 4.6 mmol/L (3.4-5.1); Sodium 136 mmol/L (137-145)
[2024-06-20 12:35] LABS: HEMOLYSIS < 15 (0-50); Iron 106 ug/dL (49-181)
[2024-06-20 12:46] LABS: Percent Iron Saturation 39 % (20-50); Total Iron Binding Capacity 275 ug/dL (261-462); Transferrin 209 mg/dL (206-381)
[2024-06-20 13:07] LABS: Ferritin 103 ng/mL (18-464)
[2024-06-20 13:24] LABS: Appearance Urine UA CLEAR; Bilirubin Urine UA NEGATIVE (NEGATIVE); Color Urine UA YELLOW; Glucose Urine UA 3+ g/dL (Negative); Ketones Urine UA NEGATIVE (NEGATIVE); Leukocyte Esterase Urine UA NEGATIVE (NEGATIVE); Nitrite Urine UA NEGATIVE (Negative); Occult Blood Urine UA NEGATIVE (Negative); Protein Urine UA TRACE (Negative); Urobilinogen Urine UA 0.2 E.U./dL (0.2); pH Urine UA 5.5 (4.5-8.0)
[2024-06-20 13:26] LABS: Urine Volume 10mL (spun)
[2024-06-20 13:27] LABS: Bacteria Urine None Seen; Culture Indicated Urine Cult Not Indicated; RBC Urine None Seen (0-5/HPF); Squamous Epithelial Cell Urine None Seen (0-5/HPF); WBC Urine None Seen (0-5/HPF)
[2024-06-20 13:49] LABS: Creatinine Urine Random 84.77 mg/dL; Protein (Total) Urine Random 43 mg/dL (0-12)
[2024-06-20 13:57] LABS: Vitamin D 25 Hydroxy (D3) 67.1 ng/mL (30.0-100.0)
[2024-06-20 14:18] LABS: Microalbumin Urine Random 20.6 mg/dL (0-1.6)
[2024-06-22 10:36] LABS: Parathyroid Hormone Int 37 pg/mL (15-65)
== END ==
LOC: LAB 11:35
PROVIDERS: Family Provider Family Medicine; PCP Family Medicine; Referring Provider Internal Medicine Nephrology; Visit Provider Internal Medicine Nephrology
DX: E83.42 Hypomagnesemia (principal); E11.22 Type 2 diabetes mellitus with diabetic chronic kidney disease; I12.9 Hypertensive chronic kidney disease with stage 1 through stage 4 chronic kidney disease, or unspecified chronic kidney disease; N18.32 Chronic kidney disease, stage 3b; I25.10 Atherosclerotic heart disease of native coronary artery without angina pectoris; Z79.4 Long term (current) use of insulin
CPT/HCPCS: 36415; 80069; 81001; 82043; 82306; 82570; 82728; 83540; 83550; 83735; 83970; 84156; 85027

== ENCOUNTER → 2024-09-15 13:02 | Outpatient (CLI) | payer MEDICARE, OTHER, SELFPAY ==
[2021-05-10 15:58] VITALS: BMI 34.9
[2024-09-15 13:47] LABS: Hemoglobin A1C% w Est Avg Glu 7.3 % (4.0-6.0)
[2024-09-15 13:55] LABS: Blood Urea Nitrogen 47 mg/dL (9-20); Calcium 9.0 mg/dL (8.4-10.2); Carbon Dioxide 25 mmol/L (22-32); Chloride 104 mmol/L (98-107); Cholesterol 114 mg/dL (140-199); Estimated Glomerular Filt Rate 39 mL/min (>60); Glucose 111 mg/dL (70-99); HDL Cholesterol 41 mg/dL (40-60); HEMOLYSIS 17 (0-50); Potassium 4.6 mmol/L (3.4-5.1); Sodium 136 mmol/L (137-145); Triglycerides 83 mg/dL (35-150)
[2024-09-15 14:40] LABS: Protein (Total) Urine Random 28 mg/dL (0-12); Protein Creatinine Ratio Urine 0.57 GRAM/24H
== END ==
PROVIDERS: Family Provider Family Medicine; PCP Family Medicine; Referring Provider Internal Medicine Endocrinology, Diabetes & Metabolism; Visit Provider Internal Medicine Endocrinology, Diabetes & Metabolism
DX: E11.22 Type 2 diabetes mellitus with diabetic chronic kidney disease (principal); N18.32 Chronic kidney disease, stage 3b; Z79.4 Long term (current) use of insulin
CPT/HCPCS: 36415; 80048; 80061; 82570; 83036; 84156

== ENCOUNTER → 2025-01-27 13:51 | Outpatient (CLI) | payer MEDICARE, OTHER, SELFPAY ==
[2021-05-10 15:58] VITALS: BMI 34.9
[2025-01-27 14:48] LABS: Hemoglobin A1C% w Est Avg Glu 7.9 % (4.0-6.0)
[2025-01-27 15:24] LABS: Blood Urea Nitrogen 52 mg/dL (9-20); Calcium 9.3 mg/dL (8.4-10.2); Carbon Dioxide 26 mmol/L (22-32); Chloride 103 mmol/L (98-107); Cholesterol 118 mg/dL (140-199); Estimated Glomerular Filt Rate 36 mL/min (>60); Glucose 205 mg/dL (70-99); HDL Cholesterol 42 mg/dL (40-60); HEMOLYSIS < 15 (0-50); Potassium 4.7 mmol/L (3.4-5.1); Sodium 136 mmol/L (137-145); Triglycerides 122 mg/dL (35-150)
[2025-01-27 15:26] LABS: Microalbumi Creatinin Ratio Ur 174.0 ug/mg CR (<30)
== END ==
PROVIDERS: Family Provider Family Medicine; PCP Family Medicine; Referring Provider Internal Medicine Endocrinology, Diabetes & Metabolism; Visit Provider Internal Medicine Endocrinology, Diabetes & Metabolism
DX: E11.65 Type 2 diabetes mellitus with hyperglycemia (principal); Z79.4 Long term (current) use of insulin
CPT/HCPCS: 36415; 80048; 80061; 82043; 82570; 83036